=== PATIENT | male | born 1945 | race African-American/Black ===

== ENCOUNTER 2018-08-13 07:06 | Emergency (ER) | payer MEDICARE, MEDICAID ==
[~2018-08-13] VITALS: Ht 167.6 cm; Wt 103.0 kg
[~2018-08-13 07:06] MED LIST: ALD50 PO; ASPI-1159 PO; ATOR20TA65 PO; CARV12.545 PO; HYDR25TA PO; LOSA100T14 PO; MULT-1146 PO; PANT40TA4 PO; RISP0.2514 PO; RIVA20TA PO
[2018-08-13] MEDS ORDERED: KETOROLAC 30MG/ML VIAL IV STA (08:00)
[2018-08-13] MEDS ORDERED: DIATR MEGLU/DIATRIZOATE SOLN 30ML ONE (08:18)
[2018-08-13 08:59] LABS: BASOPHILS % 0.9 % (0.0-2.0); EOSINOPHILS % 0.3 % (0.0-5.0); HEMATOCRIT. 43.3 % (42.0-52.0); HEMOGLOBIN. 14.3 g/dL (14.0-18.0); LYMPHOCYTES % 18.4 % (20.0-50.0); MEAN CORPUSCULAR HEMOGLOBIN 29.3 pg (28.0-32.0); MEAN CORPUSCULAR VOLUME 88.7 fL (80.0-94.0); MEAN PLATELET VOLUME 9.2 fl (7.4-10.4); MONOCYTES % 6.7 % (2.0-8.0); NEUTROPHILS % 73.7 % (40.0-76.0); PLATELET 216 x1000/uL (130-400); RED BLOOD CELL COUNT 4.89 mill/uL (4.7-6.1); RED CELL DISTRIBUTION WIDTH 15.1 % (11.6-14.6)
[2018-08-13 09:04] LABS: CHLORIDE 105 mEq/L (98-107)
[2018-08-13 10:22] LABS: CLARITY URINE CLEAR (CLEAR); COLOR URINE YELLOW (YELLOW); KETONES URINE NEGATIVE (NEGATIVE); LEUKOCYTE ESTERASE URINE NEGATIVE (NEGATIVE); NITRITE URINE NEGATIVE (NEGATIVE); OCCULT BLOOD URINE TRACE (NEGATIVE); PH URINE 7.5 (4.5-8.0); PROTEIN URINE NEGATIVE (NEGATIVE); SPECIFIC GRAVITY URINE 1.016 (1.005-1.030); UROBILINOGEN URINE 0.2 E.U./dL (0.2-1.0)
[2018-08-13] MEDS ORDERED: IOHEXOL-300 100 ML BOTTLE ONE (13:42)
[2018-08-13 15:40] VITALS: BP 151/91
== END 2018-08-13 15:52 ==
LOC: ER 07:21
DX: R10.9 Unspecified abdominal pain (principal); I10 Essential (primary) hypertension; F20.9 Schizophrenia, unspecified; H26.9 Unspecified cataract; E11.9 Type 2 diabetes mellitus without complications; G31.84 Mild cognitive impairment of uncertain or unknown etiology; Z79.82 Long term (current) use of aspirin; Z86.73 Personal history of transient ischemic attack (TIA), and cerebral infarction without residual deficits
CPT/HCPCS: 36415; 74177; 80053; 81003; 83690; 85025; 85610; 93005; 96374; 99284; J1885; Q9963; Q9967

== ENCOUNTER 2018-11-02 05:57 | Inpatient (IN) | payer MEDICARE, MEDICAID ==
[~2018-11-02] VITALS: Ht 170.2 cm; Wt 102.5 kg
[2018-11-02] MEDS ORDERED: SODIUM CHLORIDE 0.9% 1,000 ML IV ONE (06:26)
[2018-11-02 06:45] LABS: BG BASE EXCESS -0.9 mmol/L (-2.0-2.0); BG CARBOXYHEMOGLOBIN 0.6 % (0.5-1.5); BG DEOXYHEMOGLOBIN 7.4 % (0.0-5.0); BG FRACTION INSPIRED OXYGEN 21; BG HCO3 ACT 23.5 mmol/L (22.0-26.0); BG METHEMOGLOBIN 0.1 % (0.0-1.5); BG OXYGEN SATURATION 92.5 % (92.0-98.5); BG OXYHEMOGLOBIN 91.9 % (94.0-97.0); BG PH 7.409 (7.350-7.450); BG PO2 64.2 mmHg (75.0-100.0); BG SAMPLE SITE RIGHT BRACHIAL; BG TOTAL HEMOGLOBIN 13.6 g/dL (12.0-18.0); BG VENT MODE ROOM AIR
[2018-11-02 06:47] LABS: BASOPHILS % 0.8 % (0.0-2.0); CHLORIDE 105 mEq/L (98-107); EOSINOPHILS % 0.9 % (0.0-5.0); HEMATOCRIT. 42.4 % (42.0-52.0); HEMOGLOBIN. 13.8 g/dL (14.0-18.0); MEAN CORPUSCULAR HEMOGLOBIN 28.7 pg (28.0-32.0); MEAN CORPUSCULAR VOLUME 88.3 fL (80.0-94.0); MONOCYTES % 8.2 % (2.0-8.0); NEUTROPHILS % 61.1 % (40.0-76.0); PLATELET 204 x1000/uL (130-400); RED CELL DISTRIBUTION WIDTH 14.9 % (11.6-14.6)
[2018-11-02 06:52] LABS: ETHANOL BLOOD < 10 mg/dL
[2018-11-02 06:55] LABS: CREATINE KINASE 144 IU/L (39-308)
[2018-11-02 08:09] LABS: CLARITY URINE CLEAR (CLEAR); COLOR URINE YELLOW (YELLOW); KETONES URINE NEGATIVE (NEGATIVE); LEUKOCYTE ESTERASE URINE 1+ (NEGATIVE); NITRITE URINE NEGATIVE (NEGATIVE); OCCULT BLOOD URINE NEGATIVE (NEGATIVE); PH URINE 7.5 (4.5-8.0); PROTEIN URINE NEGATIVE (NEGATIVE); UROBILINOGEN URINE 0.2 E.U./dL (0.2-1.0)
[2018-11-02 08:25] LABS: *AMPHETAMINES SCREEN URINE NEGATIVE (NEGATIVE); *BARBITURATES SCREEN URINE NEGATIVE (NEGATIVE); *BENZODIAZEPINES SCREEN URINE NEGATIVE (NEGATIVE)
[2018-11-02 08:26] LABS: PROTHROMBIN TIME 10.6 sec (9.6-11.0)
[2018-11-02 08:26] LABS: *COCAINE SCREEN URINE NEGATIVE (NEGATIVE); CANNABINOID URINE SCREEN NEGATIVE (NEGATIVE); METHADONE URINE SCREEN NEGATIVE (NEGATIVE); OPIATES URINE SCREEN NEGATIVE (NEGATIVE); PHENCYCLIDINE URINE SCREEN NEGATIVE (NEGATIVE)
[2018-11-02] MEDS ORDERED: ONDANSETRON HCL 4MG/2ML INJ IV PRN (09:15)
[2018-11-02] MEDS ORDERED: DIPHENHYDRAMINE 50MG/ML VIAL IV PRN (09:15)
[2018-11-02] MEDS ORDERED: GUAIFENESIN 200MG/10ML SUGAR FREE UDC PO PRN (09:15)
[2018-11-02] MEDS ORDERED: CLONIDINE 0.1MG TABLET PO PRN (09:15)
[2018-11-02] MEDS ORDERED: ACETAMINOPHEN 325MG TABLET PO PRN (09:15)
[2018-11-02] MEDS ORDERED: IPRATROPIUM/ALBUTEROL 0.5-3(2.5)MG/3ML NEB INH PRN (09:15)
[2018-11-02] MEDS ORDERED: DOCUSATE SODIUM 100MG CAPSULE PO PRN (09:15)
[2018-11-02] MEDS ORDERED: MAGNESIUM/ALUMINUM HYDROXIDE/SIMETHICONE 30ML UDC PO PRN (09:15)
[2018-11-02] MEDS ORDERED: HYDROCODONE/ACETAMINOPHEN 5/325MG TABLET PO PRN (09:15)
[2018-11-02 09:31] LABS: PHOSPHORUS 2.6 mg/dL (2.5-4.9)
[2018-11-02] MEDS ORDERED: ENOXAPARIN 40MG/0.4ML SYR SUBCUT SCH (10:30)
[2018-11-02 11:00] VITALS: BP 147/90
[2018-11-02] MEDS ORDERED: ASPIRIN 81MG EC TABLET PO SCH (11:45)
[2018-11-02 12:00] VITALS: BP 119/62
[2018-11-02] MEDS ORDERED: ROSU20TA29 MT (12:15)
[2018-11-02] MEDS ORDERED: AMLO5TAB88 MT (12:15)
[2018-11-02] MEDS ORDERED: FERR325T6 MT (12:15)
[2018-11-02] MEDS ORDERED: CLON0.1T MT (12:18)
[2018-11-02] MEDS ORDERED: DOCU-150 MT (12:18)
[2018-11-02] MEDS ORDERED: SPIR25TA6 MT (12:18)
[2018-11-02] MEDS ORDERED: LOSA25TA12 MT (12:18)
[2018-11-02] MEDS ORDERED: ESOM20CA37 MT (12:18)
[2018-11-02] MEDS ORDERED: CARVEDILOL 3.125 MG TABLET PO SCH (13:00)
[2018-11-02 16:00] VITALS: BP 153/104
[2018-11-02] MEDS: ENOXAPARIN 40MG/0.4ML SYR SUBCUT SCH (17:55)
[2018-11-02] MEDS: ASPIRIN 81MG EC TABLET PO SCH (17:55)
[2018-11-02] MEDS: SODIUM CHLORIDE 0.45% 1,000 ML IV SCH (17:57)
[2018-11-02] MEDS ORDERED: LACTULOSE 20G/30ML UDC PO NR (19:00)
[2018-11-02 20:00] VITALS: BP 121/75
[2018-11-02] MEDS: ATORVASTATIN CALCIUM 20MG TABLET PO SCH (21:12)
[2018-11-02] MEDS: CARVEDILOL 3.125 MG TABLET PO SCH (21:13)
[2018-11-02 23:55] LABS: CREATINE KINASE MB FRACTION 2.5 ng/mL (0.5-3.6)
[2018-11-03] VITALS: BP 112/74
[2018-11-03 04:00] VITALS: BP 136/79
[2018-11-03] MEDS ORDERED: DEXTROSE 50% WATER 50ML SYRINGE IV PRN (04:00)
[2018-11-03 06:03] LABS: BASOPHILS % 0.6 % (0.0-2.0); EOSINOPHILS % 1.4 % (0.0-5.0); HEMATOCRIT. 39.2 % (42.0-52.0); HEMOGLOBIN. 12.9 g/dL (14.0-18.0); LYMPHOCYTES % 30.5 % (20.0-50.0); MEAN CORPUSCULAR VOLUME 88.1 fL (80.0-94.0); MONOCYTES % 9.1 % (2.0-8.0); NEUTROPHILS % 58.4 % (40.0-76.0); PLATELET 206 x1000/uL (130-400); RED BLOOD CELL COUNT 4.45 mill/uL (4.7-6.1); RED CELL DISTRIBUTION WIDTH 14.7 % (11.6-14.6)
[2018-11-03] MEDS: INSULIN LISPRO 100 UNITS/ML SUBCUT SCH ×4 (06:09→21:00)
[2018-11-03] MEDS: BLOOD SUGAR DIAGNOSTIC STRIP TEST SCH ×4 (06:09→21:00)
[2018-11-03] MEDS: SODIUM CHLORIDE 0.45% 1,000 ML IV SCH (06:09)
[2018-11-03 07:50] LABS: CHLORIDE 108 mEq/L (98-107)
[2018-11-03 08:00] VITALS: BP 145/79
[2018-11-03 08:02] LABS: LDL CHOLESTEROL 47 mg/dL (5-100)
[2018-11-03 08:04] LABS: HDL CHOLESTEROL 32 mg/dL (40-59)
[2018-11-03] MEDS: ASPIRIN 81MG EC TABLET PO SCH (09:31)
[2018-11-03] MEDS: CARVEDILOL 3.125 MG TABLET PO SCH ×2 (09:31→22:12)
[2018-11-03] MEDS: CLOTRIMAZOLE 1% CREAM 30GM TOP SCH (11:27)
[2018-11-03 12:00] VITALS: BP 114/62
[2018-11-03 16:00] VITALS: BP 159/96
[2018-11-03] MEDS: ENOXAPARIN 40MG/0.4ML SYR SUBCUT SCH (17:31)
[2018-11-03 20:00] VITALS: BP 118/73
[2018-11-03] MEDS: ATORVASTATIN CALCIUM 20MG TABLET PO SCH (22:11)
[2018-11-04] VITALS: BP 113/67
[2018-11-04 04:00] VITALS: BP 140/79
[2018-11-04] MEDS: SODIUM CHLORIDE 0.45% 1,000 ML IV SCH ×2 (05:52→14:59)
[2018-11-04] MEDS: BLOOD SUGAR DIAGNOSTIC STRIP TEST SCH ×3 (05:55→16:45)
[2018-11-04 06:06] LABS: BASOPHILS % 0.4 % (0.0-2.0); EOSINOPHILS % 2.2 % (0.0-5.0); HEMOGLOBIN. 12.4 g/dL (14.0-18.0); LYMPHOCYTES % 30.3 % (20.0-50.0); MEAN CORPUSCULAR HEMOGLOBIN 28.7 pg (28.0-32.0); MEAN CORPUSCULAR VOLUME 88.3 fL (80.0-94.0); MONOCYTES % 7.7 % (2.0-8.0); NEUTROPHILS % 59.4 % (40.0-76.0); PLATELET 194 x1000/uL (130-400); RED BLOOD CELL COUNT 4.31 mill/uL (4.7-6.1); RED CELL DISTRIBUTION WIDTH 14.8 % (11.6-14.6)
[2018-11-04 06:23] LABS: CHLORIDE 107 mEq/L (98-107)
[2018-11-04] MEDS: INSULIN LISPRO 100 UNITS/ML SUBCUT SCH ×3 (06:34→17:15)
[2018-11-04 08:00] VITALS: BP 156/75
[2018-11-04] MEDS: CLOTRIMAZOLE 1% CREAM 30GM TOP SCH (09:52)
[2018-11-04] MEDS: CARVEDILOL 3.125 MG TABLET PO SCH (09:53)
[2018-11-04] MEDS: ASPIRIN 81MG EC TABLET PO SCH (09:53)
[2018-11-04 12:00] VITALS: BP 104/88
[2018-11-04] MEDS ORDERED: COR3 PO (12:18)
[2018-11-04 16:00] VITALS: BP 141/82
[2018-11-04 16:48] VITALS: BP 141/82
[2018-11-04] MEDS: ENOXAPARIN 40MG/0.4ML SYR SUBCUT SCH (18:03)
[2018-11-10] MEDS ORDERED: CARVEDILOL 3.125 MG TABLET PO SCH (21:00)
== END 2018-11-04 20:45 | disposition home health service (06) | DRG 74 ==
LOC: ER 06:22 → 5WST 08:25 → EDBEDREQ 08:27 → ENRESERV 08:56
PROVIDERS: ADMIT Internal Medicine; ATTEND Internal Medicine
DX: G90.8 Other disorders of autonomic nervous system (principal); E72.20 Disorder of urea cycle metabolism, unspecified; I24.9 Acute ischemic heart disease, unspecified; G93.40 Encephalopathy, unspecified; E11.42 Type 2 diabetes mellitus with diabetic polyneuropathy; R41.82 Altered mental status, unspecified; M50.10 Cervical disc disorder with radiculopathy, unspecified cervical region; L84 Corns and callosities; E78.5 Hyperlipidemia, unspecified; R23.4 Changes in skin texture; L57.0 Actinic keratosis; I44.0 Atrioventricular block, first degree; I11.9 Hypertensive heart disease without heart failure; B35.3 Tinea pedis; F03.90 Unspecified dementia, unspecified severity, without behavioral disturbance, psychotic disturbance, mood disturbance, and anxiety; Z86.73 Personal history of transient ischemic attack (TIA), and cerebral infarction without residual deficits; Z87.891 Personal history of nicotine dependence; Z74.01 Bed confinement status; Z79.899 Other long term (current) drug therapy; Z79.01 Long term (current) use of anticoagulants
CPT/HCPCS: 36415; 36600; 71045; 80048; 80061; 80305; 80307; 80320; 80329; 82140; 82375; 82550; 82553; 82805; 82962; 83036; 83605; 83735; 83880; 84100; 84443; 84484; 93005; 93306; 93970; 96360; 96361; 97163; 97167; 97530; 99285; A6261; J1650; J7030; G0480

== ENCOUNTER 2019-08-27 09:30 | Inpatient (IN) | payer MEDICARE, MEDICAID ==
[~2019-08-27] VITALS: Ht 170.2 cm; Wt 95.3 kg
[~2019-08-27 09:30] MED LIST changes: -ALD50 PO; -ASPI-1159 PO; -ATOR20TA65 PO; -CARV12.545 PO; +COR3 PO; +DOCU-150 MT; +ESOM20CA37 MT; +FERR325T6 MT; -HYDR25TA PO; -LOSA100T14 PO; -MULT-1146 PO; -PANT40TA4 PO; -RISP0.2514 PO; -RIVA20TA PO; +ROSU20TA29 MT
[2019-08-27] MEDS ORDERED: HYDR25TA PO (09:35)
[2019-08-27] MEDS ORDERED: SODIUM CHLORIDE 0.9% 1,000 ML IV ONE (09:58)
[2019-08-27 10:33] LABS: BASOPHILS % 0.7 % (0.0-2.0); EOSINOPHILS % 2.7 % (0.0-5.0); HEMATOCRIT. 44.9 % (42.0-52.0); LYMPHOCYTES % 37.9 % (20.0-50.0); MEAN CORPUSCULAR HEMOGLOBIN 29.5 pg (28.0-32.0); MONOCYTES % 8.7 % (2.0-8.0); PLATELET 177 x1000/uL (130-400); RED CELL DISTRIBUTION WIDTH 15.1 % (11.6-14.6)
[2019-08-27 10:38] LABS: PROTHROMBIN TIME 10.7 sec (9.6-11.0)
[2019-08-27 10:39] LABS: CHLORIDE 103 mEq/L (98-107)
[2019-08-27 10:44] LABS: ETHANOL BLOOD < 10 mg/dL
[2019-08-27 10:48] LABS: CREATINE KINASE 916 IU/L (39-308)
[2019-08-27 11:24] LABS: *BARBITURATES SCREEN URINE NEGATIVE (NEGATIVE)
[2019-08-27 11:25] LABS: *BENZODIAZEPINES SCREEN URINE NEGATIVE (NEGATIVE); *COCAINE SCREEN URINE NEGATIVE (NEGATIVE); CANNABINOID URINE SCREEN NEGATIVE (NEGATIVE); METHADONE URINE SCREEN NEGATIVE (NEGATIVE); PHENCYCLIDINE URINE SCREEN NEGATIVE (NEGATIVE)
[2019-08-27 11:26] LABS: *AMPHETAMINES SCREEN URINE NEGATIVE (NEGATIVE)
[2019-08-27 12:21] LABS: CLARITY URINE CLOUDY (CLEAR); COLOR URINE YELLOW (YELLOW); KETONES URINE NEGATIVE (NEGATIVE); LEUKOCYTE ESTERASE URINE 3+ (NEGATIVE); NITRITE URINE NEGATIVE (NEGATIVE); OCCULT BLOOD URINE 2+ (NEGATIVE); PH URINE 8.5 (4.5-8.0); PROTEIN URINE 1+ (NEGATIVE); SPECIFIC GRAVITY URINE 1.018 (1.005-1.030)
[2019-08-27] MEDS ORDERED: CEFTRIAXONE 1 G PREMIX 50 ML IV ONE (13:00)
[2019-08-27] MEDS ORDERED: MAGNESIUM 2 G PREMIX 50 ML IV ONE (13:45)
[2019-08-27] MEDS ORDERED: ONDANSETRON HCL 4MG/2ML INJ IV PRN (13:45)
[2019-08-27] MEDS ORDERED: ENOXAPARIN 40MG/0.4ML SYR SUBCUT SCH (13:45)
[2019-08-27] MEDS ORDERED: ACETAMINOPHEN 325MG TABLET PO PRN (13:45)
[2019-08-27] MEDS ORDERED: IPRATROPIUM/ALBUTEROL 0.5-3(2.5)MG/3ML NEB HHN PRN (13:45)
[2019-08-27] MEDS ORDERED: CLONIDINE 0.1MG TABLET PO PRN (13:45)
[2019-08-27] MEDS ORDERED: MAGNESIUM/ALUMINUM HYDROXIDE/SIMETHICONE 30ML UDC PO PRN (13:45)
[2019-08-27] MEDS ORDERED: DEXTROSE 50% WATER 50ML SYRINGE IV PRN (16:45)
[2019-08-27] MEDS: BLOOD SUGAR DIAGNOSTIC STRIP TEST SCH ×2 (17:04→21:00)
[2019-08-27] MEDS: INSULIN LISPRO 100 UNITS/ML SUBCUT SCH ×2 (17:04→21:00)
[2019-08-27 18:17] LABS: CREATINE KINASE MB FRACTION 7.2 ng/mL (0.5-3.6)
[2019-08-27] MEDS: METOPROLOL TARTRATE 25MG TABLET PO SCH (18:22)
[2019-08-27 19:09] VITALS: BP 133/78
[2019-08-27 20:00] VITALS: BP 120/67
[2019-08-27] MEDS: ATORVASTATIN CALCIUM 10MG TABLET PO SCH (22:20)
[2019-08-27] MEDS: ENOXAPARIN 30MG/0.3ML SYR SUBCUT SCH (22:20)
[2019-08-28 00:29] LABS: CREATINE KINASE MB FRACTION 5.7 ng/mL (0.5-3.6)
[2019-08-28 04:00] VITALS: BP 132/62
[2019-08-28 06:11] LABS: BASOPHILS % 0.7 % (0.0-2.0); EOSINOPHILS % 3.3 % (0.0-5.0); HEMATOCRIT. 41.3 % (42.0-52.0); HEMOGLOBIN. 13.8 g/dL (14.0-18.0); MEAN CORPUSCULAR HEMOGLOBIN 29.4 pg (28.0-32.0); MEAN CORPUSCULAR VOLUME 87.9 fL (80.0-94.0); MEAN PLATELET VOLUME 9.3 fl (7.4-10.4); MONOCYTES % 8.1 % (2.0-8.0); NEUTROPHILS % 53.9 % (40.0-76.0); PLATELET 176 x1000/uL (130-400); RED CELL DISTRIBUTION WIDTH 14.9 % (11.6-14.6)
[2019-08-28 06:27] LABS: CHLORIDE 104 mEq/L (98-107)
[2019-08-28] MEDS: BLOOD SUGAR DIAGNOSTIC STRIP TEST SCH ×4 (06:33→20:29)
[2019-08-28] MEDS: INSULIN LISPRO 100 UNITS/ML SUBCUT SCH ×4 (06:33→20:29)
[2019-08-28] MEDS: METOPROLOL TARTRATE 25MG TABLET PO SCH ×2 (06:33→17:11)
[2019-08-28 06:39] LABS: LDL CHOLESTEROL 51 mg/dL (5-100)
[2019-08-28 06:41] LABS: HDL CHOLESTEROL 26 mg/dL (40-59)
[2019-08-28 08:00] VITALS: BP 111/70
[2019-08-28] MEDS ORDERED: POTASSIUM CHLORIDE 20MEQ TABLET SR PO SCH (08:30)
[2019-08-28] MEDS: ASPIRIN 81MG EC TABLET PO SCH (09:29)
[2019-08-28] MEDS: ENOXAPARIN 30MG/0.3ML SYR SUBCUT SCH ×2 (09:29→20:31)
[2019-08-28] MEDS: DOCUSATE SODIUM 250MG CAPSULE PO SCH (09:29)
[2019-08-28 12:00] VITALS: BP 119/96
[2019-08-28 16:00] VITALS: BP 160/93
[2019-08-28] MEDS: POTASSIUM CHLORIDE 20MEQ TABLET SR PO SCH (17:11)
[2019-08-28 20:00] VITALS: BP 126/76
[2019-08-28] MEDS: ATORVASTATIN CALCIUM 10MG TABLET PO SCH (20:32)
[2019-08-29] VITALS: BP 102/66
[2019-08-29 04:00] VITALS: BP 126/86
[2019-08-29 05:28] LABS: BASOPHILS % 1.1 % (0.0-2.0); EOSINOPHILS % 3.4 % (0.0-5.0); HEMATOCRIT. 42.7 % (42.0-52.0); HEMOGLOBIN. 14.3 g/dL (14.0-18.0); LYMPHOCYTES % 39.1 % (20.0-50.0); MEAN CORPUSCULAR HEMOGLOBIN 29.5 pg (28.0-32.0); MEAN CORPUSCULAR VOLUME 87.7 fL (80.0-94.0); MEAN PLATELET VOLUME 9.2 fl (7.4-10.4); MONOCYTES % 9.2 % (2.0-8.0); NEUTROPHILS % 47.2 % (40.0-76.0); PLATELET 188 x1000/uL (130-400); RED BLOOD CELL COUNT 4.86 mill/uL (4.7-6.1); RED CELL DISTRIBUTION WIDTH 14.7 % (11.6-14.6)
[2019-08-29 05:29] LABS: CHLORIDE 108 mEq/L (98-107)
[2019-08-29] MEDS: INSULIN LISPRO 100 UNITS/ML SUBCUT SCH ×4 (06:34→20:59)
[2019-08-29] MEDS: BLOOD SUGAR DIAGNOSTIC STRIP TEST SCH ×4 (06:34→20:59)
[2019-08-29] MEDS: METOPROLOL TARTRATE 25MG TABLET PO SCH ×2 (06:34→17:24)
[2019-08-29 08:00] VITALS: BP 113/95
[2019-08-29] MEDS: ASPIRIN 81MG EC TABLET PO SCH (08:26)
[2019-08-29] MEDS: POTASSIUM CHLORIDE 20MEQ TABLET SR PO SCH ×2 (08:26→17:24)
[2019-08-29] MEDS: DOCUSATE SODIUM 250MG CAPSULE PO SCH (08:26)
[2019-08-29] MEDS: ENOXAPARIN 30MG/0.3ML SYR SUBCUT SCH ×2 (08:27→21:10)
[2019-08-29] MEDS: LINAGLIPTIN 5MG TABLET PO SCH (09:58)
[2019-08-29] MEDS ORDERED: LACTULOSE 20G/30ML UDC PO PRN (11:00)
[2019-08-29] MEDS ORDERED: LACTULOSE 20G/30ML UDC PO NR (11:00)
[2019-08-29 12:00] VITALS: BP 132/112
[2019-08-29] MEDS: LEVOFLOXACIN 500MG PREMIX 100 ML IV SCH (12:44)
[2019-08-29 16:00] VITALS: BP 152/85
[2019-08-29 20:00] VITALS: BP 115/67
[2019-08-29] MEDS: ATORVASTATIN CALCIUM 10MG TABLET PO SCH (21:10)
[2019-08-30] VITALS: BP 143/90
[2019-08-30 04:00] VITALS: BP 116/78
[2019-08-30] MEDS: BLOOD SUGAR DIAGNOSTIC STRIP TEST SCH ×2 (05:34→12:07)
[2019-08-30] MEDS: INSULIN LISPRO 100 UNITS/ML SUBCUT SCH ×2 (06:18→12:08)
[2019-08-30] MEDS: METOPROLOL TARTRATE 25MG TABLET PO SCH (06:19)
[2019-08-30 07:57] LABS: BASOPHILS % 0.7 % (0.0-2.0); EOSINOPHILS % 2.6 % (0.0-5.0); HEMATOCRIT. 42.3 % (42.0-52.0); HEMOGLOBIN. 14.5 g/dL (14.0-18.0); LYMPHOCYTES % 37.7 % (20.0-50.0); MEAN CORPUSCULAR HEMOGLOBIN 30.1 pg (28.0-32.0); MEAN PLATELET VOLUME 8.9 fl (7.4-10.4); MONOCYTES % 9.5 % (2.0-8.0); NEUTROPHILS % 49.5 % (40.0-76.0); PLATELET 184 x1000/uL (130-400); RED BLOOD CELL COUNT 4.81 mill/uL (4.7-6.1); RED CELL DISTRIBUTION WIDTH 14.9 % (11.6-14.6)
[2019-08-30 08:00] VITALS: BP 109/68
[2019-08-30] MEDS ORDERED: ASPI-1158 PO (08:01)
[2019-08-30] MEDS ORDERED: LINA5TAB PO (08:01)
[2019-08-30] MEDS ORDERED: LEVO500T2 MT (08:01)
[2019-08-30 08:14] LABS: CHLORIDE 108 mEq/L (98-107)
[2019-08-30] MEDS: POTASSIUM CHLORIDE 20MEQ TABLET SR PO SCH (11:41)
[2019-08-30] MEDS: DOCUSATE SODIUM 250MG CAPSULE PO SCH (11:41)
[2019-08-30] MEDS: ASPIRIN 81MG EC TABLET PO SCH (11:41)
[2019-08-30] MEDS: LINAGLIPTIN 5MG TABLET PO SCH (11:41)
[2019-08-30] MEDS: ENOXAPARIN 30MG/0.3ML SYR SUBCUT SCH (11:42)
[2019-08-30] MEDS: LEVOFLOXACIN 500MG PREMIX 100 ML IV SCH (11:43)
[2019-08-30 12:00] VITALS: BP 105/75
[2019-08-30 14:21] VITALS: BP 115/60
[2019-08-30 17:47] LABS: OPIATES URINE SCREEN NEGATIVE (NEGATIVE)
[2019-08-31] MEDS ORDERED: LEVOFLOXACIN 500MG TABLET PO SCH (11:00)
== END 2019-08-30 15:15 | disposition home health service (06) | DRG 640 ==
LOC: ER 09:30 → 5WST 11:45 → EDBEDREQ 11:55 → ENRESERV 13:14
PROVIDERS: ADMIT Internal Medicine Geriatric Medicine; ATTEND Internal Medicine Geriatric Medicine
DX: E87.6 Hypokalemia (principal); G92 Toxic encephalopathy; N39.0 Urinary tract infection, site not specified; I49.3 Ventricular premature depolarization; I44.0 Atrioventricular block, first degree; G30.9 Alzheimer's disease, unspecified; I11.9 Hypertensive heart disease without heart failure; E11.49 Type 2 diabetes mellitus with other diabetic neurological complication; E78.5 Hyperlipidemia, unspecified; H54.62 Unqualified visual loss, left eye, normal vision right eye; F02.80 Dementia in other diseases classified elsewhere, unspecified severity, without behavioral disturbance, psychotic disturbance, mood disturbance, and anxiety; I49.9 Cardiac arrhythmia, unspecified; K59.00 Constipation, unspecified; B96.89 Other specified bacterial agents as the cause of diseases classified elsewhere; F17.210 Nicotine dependence, cigarettes, uncomplicated; Z79.899 Other long term (current) drug therapy; Z82.49 Family history of ischemic heart disease and other diseases of the circulatory system; Z86.73 Personal history of transient ischemic attack (TIA), and cerebral infarction without residual deficits
CPT/HCPCS: 36415; 71045; 80048; 80053; 80061; 80305; 80307; 80320; 80329; 81003; 82140; 82550; 82553; 82962; 83036; 83735; 83880; 84443; 84484; 85025; 87077; 87186; 93005; 93306; 93970; 97162; 99285; J0696; J1650; J1956; J7030; G0480

== ENCOUNTER 2020-02-07 07:50 | Inpatient (IN) | payer MEDICARE, MEDICAID ==
[~2020-02-07] VITALS: Ht 175.3 cm; Wt 88.9 kg
[2020-02-07] VITALS (7 sets, daily range): BP systolic 92–125; BP diastolic 53–86
[~2020-02-07 07:50] MED LIST changes: +ASPI-1158 PO; +LEVO500T2 MT; +LINA5TAB PO
[2020-02-07] MEDS ORDERED: ONDANSETRON HCL 4MG/2ML INJ IV STA (08:21)
[2020-02-07] MEDS ORDERED: KETOROLAC 30MG/ML VIAL IV STA (08:21)
[2020-02-07] MEDS ORDERED: SODIUM CHLORIDE 0.9% 1,000 ML IV ONE (08:23)
[2020-02-07 08:31] LABS: CHLORIDE 122 mEq/L (98-107)
[2020-02-07 08:34] LABS: BASOPHILS % 0.7 % (0.0-2.0); EOSINOPHILS % 0.1 % (0.0-5.0); HEMATOCRIT. 55.6 % (42.0-52.0); HEMOGLOBIN. 18.4 g/dL (14.0-18.0); LYMPHOCYTES % 27.5 % (20.0-50.0); MEAN CORPUSCULAR HEMOGLOBIN 28.8 pg (28.0-32.0); MEAN CORPUSCULAR VOLUME 87.2 fL (80.0-94.0); MEAN PLATELET VOLUME 9.4 fl (7.4-10.4); MONOCYTES % 6.3 % (2.0-8.0); NEUTROPHILS % 65.4 % (40.0-76.0); PLATELET 238 x1000/uL (130-400); RED BLOOD CELL COUNT 6.37 mill/uL (4.7-6.1); RED CELL DISTRIBUTION WIDTH 15.5 % (11.6-14.6)
[2020-02-07 08:39] LABS: INR 1.1; PROTHROMBIN TIME 11.9 sec (9.6-11.0)
[2020-02-07 09:09] LABS: CLARITY URINE CLOUDY (CLEAR); COLOR URINE DK YELLOW (YELLOW); KETONES URINE TRACE (NEGATIVE); LEUKOCYTE ESTERASE URINE NEGATIVE (NEGATIVE); NITRITE URINE NEGATIVE (NEGATIVE); OCCULT BLOOD URINE 2+ (NEGATIVE); PH URINE 5.5 (4.5-8.0); PROTEIN URINE 3+ (NEGATIVE); SPECIFIC GRAVITY URINE 1.035 (1.005-1.030)
[2020-02-07] MEDS ORDERED: PIPERACILLIN/TAZ 3.375G PREMIX 50 ML IV ONE (09:30)
[2020-02-07] MEDS ORDERED: VANCOMYCIN 1 G PREMIX 200 ML IV ONE (09:30)
[2020-02-07] MEDS ORDERED: LACTULOSE 20G/30ML UDC PO ONE (10:30)
[2020-02-07] MEDS ORDERED: LACTULOSE 20G/30ML UDC PO SCH (11:00)
[2020-02-07] MEDS: DEXT 5%/0.45% NACL 1000ML 1,000 ML IV SCH ×3 (11:05→17:22)
[2020-02-07] MEDS ORDERED: ENOXAPARIN 40MG/0.4ML SYR SUBCUT SCH (11:15)
[2020-02-07] MEDS ORDERED: DOCUSATE SODIUM 100MG CAPSULE PO PRN (11:15)
[2020-02-07] MEDS ORDERED: GUAIFENESIN 200MG/10ML SUGAR FREE UDC PO PRN (11:15)
[2020-02-07] MEDS ORDERED: MAGNESIUM/ALUMINUM HYDROXIDE/SIMETHICONE 30ML UDC PO PRN (11:15)
[2020-02-07] MEDS ORDERED: ACETAMINOPHEN 325MG TABLET PO PRN ×2 (11:15)
[2020-02-07] MEDS ORDERED: TRAMADOL 50MG TABLET PO PRN (11:15)
[2020-02-07] MEDS ORDERED: CLONIDINE 0.1MG TABLET PO PRN (11:15)
[2020-02-07] MEDS ORDERED: DEXTROSE 50% WATER 50ML SYRINGE IV PRN (11:15)
[2020-02-07] MEDS ORDERED: IPRATROPIUM/ALBUTEROL 0.5-3(2.5)MG/3ML NEB ORI PRN (11:15)
[2020-02-07] MEDS ORDERED: NITROGLYCERIN 0.4MG TABLET SL SL PRN (11:15)
[2020-02-07] MEDS ORDERED: MORPHINE SULFATE 2 MG/ML CPJ (NOT FOR IM USE) IV PRN (11:15)
[2020-02-07] MEDS ORDERED: CEFTRIAXONE 1 G PREMIX 50 ML IV NR (11:30)
[2020-02-07] MEDS: LACTULOSE 20G/30ML UDC PO SCH ×3 (11:30→21:01)
[2020-02-07 11:58] LABS: T4 FREE 1.15 ng/dL (0.76-1.46)
[2020-02-07] MEDS ORDERED: LEVOFLOXACIN 500MG PREMIX 100 ML IV SCH (12:00)
[2020-02-07] MEDS: ENOXAPARIN 30MG/0.3ML SYR SUBCUT SCH (12:22)
[2020-02-07] MEDS: BLOOD SUGAR DIAGNOSTIC STRIP TEST SCH ×3 (13:00→21:02)
[2020-02-07] MEDS: INSULIN LISPRO 100 UNITS/ML SUBCUT SCH ×3 (13:20→21:03)
[2020-02-07 16:22] LABS: CREATINE KINASE MB FRACTION 3.8 ng/mL (0.5-3.6)
[2020-02-07] MEDS: CARVEDILOL 3.125 MG TABLET PO SCH (17:24)
[2020-02-07] MEDS ORDERED: ZOLPIDEM TARTRATE 5MG TABLET PO PRN (21:00)
[2020-02-07] MEDS: FAMOTIDINE 20MG TABLET PO SCH (21:01)
[2020-02-07] MEDS: ASCORBIC ACID 500 MG TABLET PO SCH (21:02)
[2020-02-07 23:23] LABS: CREATINE KINASE MB FRACTION 4.2 ng/mL (0.5-3.6)
[2020-02-08] VITALS (12 sets, daily range): BP systolic 115–140; BP diastolic 69–98
[2020-02-08] MEDS: LACTULOSE 20G/30ML UDC PO SCH ×6 (00:55→20:00)
[2020-02-08] MEDS: DEXT 5%/0.45% NACL 1000ML 1,000 ML IV SCH ×2 (02:20→19:18)
[2020-02-08] MEDS: CARVEDILOL 3.125 MG TABLET PO SCH ×2 (06:01→18:25)
[2020-02-08 06:24] LABS: BASOPHILS % 0.4 % (0.0-2.0); EOSINOPHILS % 0.6 % (0.0-5.0); HEMATOCRIT. 48.4 % (42.0-52.0); HEMOGLOBIN. 15.8 g/dL (14.0-18.0); LYMPHOCYTES % 17.3 % (20.0-50.0); MEAN CORPUSCULAR VOLUME 88.7 fL (80.0-94.0); MEAN PLATELET VOLUME 9.7 fl (7.4-10.4); MONOCYTES % 6.4 % (2.0-8.0); NEUTROPHILS % 75.3 % (40.0-76.0); PLATELET 189 x1000/uL (130-400); RED BLOOD CELL COUNT 5.45 mill/uL (4.7-6.1); RED CELL DISTRIBUTION WIDTH 15.6 % (11.6-14.6)
[2020-02-08 06:35] LABS: CHLORIDE 123 mEq/L (98-107)
[2020-02-08 07:09] LABS: PHOSPHORUS 3.9 mg/dL (2.5-4.9)
[2020-02-08] MEDS: BLOOD SUGAR DIAGNOSTIC STRIP TEST SCH ×4 (08:19→20:24)
[2020-02-08] MEDS: CEFTRIAXONE 1,000 MG in DEXTROSE 5% WATER 50 ML IV SCH (08:20)
[2020-02-08] MEDS: INSULIN LISPRO 100 UNITS/ML SUBCUT SCH ×4 (08:22→20:24)
[2020-02-08] MEDS: ZINC SULFATE 220 MG ( 50 ) CAPSULE PO SCH (08:22)
[2020-02-08] MEDS: ASCORBIC ACID 500 MG TABLET PO SCH ×2 (08:23→20:22)
[2020-02-08] MEDS: ASPIRIN 325MG EC TABLET PO SCH (08:36)
[2020-02-08] MEDS ORDERED: CEFTRIAXONE 1 G PREMIX 50 ML IV SCH (09:00)
[2020-02-08] MEDS ORDERED: CEFTRIAXONE 1,000 MG in DEXTROSE 5% WATER 50 ML IV SCH (09:00)
[2020-02-08] MEDS ORDERED: POTASSIUM CHLORIDE 20MEQ/PACKET PO NR ×2 (10:15→10:30)
[2020-02-08] MEDS: ONDANSETRON HCL 4MG/2ML INJ IV PRN ×3 (11:25→21:13)
[2020-02-08] MEDS: LEVOFLOXACIN 250MG PREMIX 50 ML IV SCH (11:59)
[2020-02-08] MEDS: ENOXAPARIN 30MG/0.3ML SYR SUBCUT SCH (11:59)
[2020-02-08] MEDS ORDERED: POTASSIUM CHLORIDE INJ 40 MEQ in DEXT 5% WATER 250 ML IV NR (12:00)
[2020-02-08] MEDS ORDERED: POTASSIUM CHLORIDE INJ 20 MEQ in DEXT 5% WATER 250 ML IV SCH (12:00)
[2020-02-08] MEDS: FAMOTIDINE 20MG TABLET PO SCH (20:22)
[2020-02-09] VITALS (11 sets, daily range): BP systolic 106–156; BP diastolic 56–86
[2020-02-09] MEDS: LACTULOSE 20G/30ML UDC PO SCH ×2 (03:59)
[2020-02-09] MEDS: ONDANSETRON HCL 4MG/2ML INJ IV PRN ×3 (03:59→18:23)
[2020-02-09] MEDS: CARVEDILOL 3.125 MG TABLET PO SCH ×2 (06:11→19:16)
[2020-02-09] MEDS: DEXT 5%/0.45% NACL 1000ML 1,000 ML IV SCH ×3 (06:11→12:30)
[2020-02-09] MEDS: INSULIN LISPRO 100 UNITS/ML SUBCUT SCH ×5 (08:00→21:07)
[2020-02-09] MEDS: BLOOD SUGAR DIAGNOSTIC STRIP TEST SCH ×4 (08:14→21:07)
[2020-02-09] MEDS: ZINC SULFATE 220 MG ( 50 ) CAPSULE PO SCH (09:35)
[2020-02-09] MEDS: CEFTRIAXONE 1,000 MG in DEXTROSE 5% WATER 50 ML IV SCH (09:35)
[2020-02-09] MEDS: ENOXAPARIN 40MG/0.4ML SYR SUBCUT SCH (09:35)
[2020-02-09] MEDS: ASPIRIN 325MG EC TABLET PO SCH (09:35)
[2020-02-09] MEDS: ASCORBIC ACID 500 MG TABLET PO SCH ×2 (09:35→20:31)
[2020-02-09] MEDS: LEVOFLOXACIN 250MG PREMIX 50 ML IV SCH (11:23)
[2020-02-09] MEDS: METOCLOPRAMIDE HCL 10MG/2ML VIAL IV SCH ×2 (12:07→19:13)
[2020-02-09] MEDS: FAMOTIDINE 20MG TABLET PO SCH (20:31)
[2020-02-10] VITALS (9 sets, daily range): BP systolic 104–146; BP diastolic 39–105
[2020-02-10] MEDS: DEXT 5%/0.45% NACL 1000ML 1,000 ML IV SCH ×3 (01:28→18:05)
[2020-02-10] MEDS: CARVEDILOL 3.125 MG TABLET PO SCH ×2 (05:46→17:27)
[2020-02-10] MEDS: ASCORBIC ACID 500 MG TABLET PO SCH ×2 (08:15→22:17)
[2020-02-10] MEDS: CEFTRIAXONE 1,000 MG in DEXTROSE 5% WATER 50 ML IV SCH (08:15)
[2020-02-10] MEDS: ENOXAPARIN 40MG/0.4ML SYR SUBCUT SCH (08:15)
[2020-02-10] MEDS: ZINC SULFATE 220 MG ( 50 ) CAPSULE PO SCH (08:15)
[2020-02-10] MEDS: METOCLOPRAMIDE HCL 10MG/2ML VIAL IV SCH ×3 (08:15→17:25)
[2020-02-10] MEDS: BLOOD SUGAR DIAGNOSTIC STRIP TEST SCH ×4 (08:16→21:00)
[2020-02-10] MEDS: ASPIRIN 325MG EC TABLET PO SCH (08:17)
[2020-02-10] MEDS: INSULIN LISPRO 100 UNITS/ML SUBCUT SCH ×4 (08:19→22:28)
[2020-02-10] MEDS: LEVOFLOXACIN 250MG PREMIX 50 ML IV SCH (11:25)
[2020-02-10] MEDS: FAMOTIDINE 20MG TABLET PO SCH (22:17)
[2020-02-11] VITALS (8 sets, daily range): BP systolic 106–148; BP diastolic 71–92
[2020-02-11] MEDS: DEXT 5%/0.45% NACL 1000ML 1,000 ML IV SCH ×2 (05:24→15:35)
[2020-02-11] MEDS: CARVEDILOL 3.125 MG TABLET PO SCH (05:25)
[2020-02-11 07:21] LABS: CHLORIDE 109 mEq/L (98-107)
[2020-02-11 07:27] LABS: BASOPHILS % 0.5 % (0.0-2.0); EOSINOPHILS % 2.6 % (0.0-5.0); HEMATOCRIT. 42.5 % (42.0-52.0); LYMPHOCYTES % 34.3 % (20.0-50.0); MEAN CORPUSCULAR HEMOGLOBIN 28.8 pg (28.0-32.0); MEAN CORPUSCULAR VOLUME 87.4 fL (80.0-94.0); MEAN PLATELET VOLUME 10.1 fl (7.4-10.4); MONOCYTES % 8.2 % (2.0-8.0); NEUTROPHILS % 54.4 % (40.0-76.0); PLATELET 157 x1000/uL (130-400); RED BLOOD CELL COUNT 4.87 mill/uL (4.7-6.1); RED CELL DISTRIBUTION WIDTH 15.3 % (11.6-14.6)
[2020-02-11] MEDS: BLOOD SUGAR DIAGNOSTIC STRIP TEST SCH ×3 (07:30→17:26)
[2020-02-11] MEDS: METOCLOPRAMIDE HCL 10MG/2ML VIAL IV SCH ×3 (09:23→17:26)
[2020-02-11] MEDS: ASPIRIN 325MG EC TABLET PO SCH (09:24)
[2020-02-11] MEDS: ASCORBIC ACID 500 MG TABLET PO SCH (09:24)
[2020-02-11] MEDS: ZINC SULFATE 220 MG ( 50 ) CAPSULE PO SCH (09:24)
[2020-02-11] MEDS: ENOXAPARIN 40MG/0.4ML SYR SUBCUT SCH (09:24)
[2020-02-11] MEDS: CEFTRIAXONE 1,000 MG in DEXTROSE 5% WATER 50 ML IV SCH (09:24)
[2020-02-11] MEDS: INSULIN LISPRO 100 UNITS/ML SUBCUT SCH ×3 (09:25→17:27)
[2020-02-11] MEDS ORDERED: POTASSIUM CHLORIDE 20MEQ/PACKET PO NR (11:00)
[2020-02-11] MEDS: LEVOFLOXACIN 250MG PREMIX 50 ML IV SCH (11:18)
[2020-02-11] MEDS ORDERED: POTASSIUM CHLORIDE INJ 40 MEQ in DEXT 5% WATER 250 ML IV NR (12:00)
[2020-02-11] MEDS ORDERED: CARVEDILOL 12.5MG TABLET PO SCH (17:00)
[2020-02-11] MEDS ORDERED: METOPROLOL TARTRATE 50MG TABLET PO SCH (17:00)
== END 2020-02-11 18:45 | DRG 871 ==
LOC: ER 07:50 → 5EST 10:59 → SUPCPDRO 11:04 → EDBEDREQ 11:20 → EDBEDREQSVC 11:20 → ENRESERV 12:20
PROVIDERS: ADMIT Internal Medicine; ATTEND Internal Medicine
DX: A41.9 Sepsis, unspecified organism (principal); N17.0 Acute kidney failure with tubular necrosis; G92 Toxic encephalopathy; E87.0 Hyperosmolality and hypernatremia; Z20.828 Contact with and (suspected) exposure to other viral communicable diseases; I10 Essential (primary) hypertension; E11.9 Type 2 diabetes mellitus without complications; Z86.73 Personal history of transient ischemic attack (TIA), and cerebral infarction without residual deficits; Z79.82 Long term (current) use of aspirin; Z79.899 Other long term (current) drug therapy; L89.156 Pressure-induced deep tissue damage of sacral region; K31.84 Gastroparesis; S30.92XA Unspecified superficial injury of abdominal wall, initial encounter; S30.94XA Unspecified superficial injury of scrotum and testes, initial encounter; R65.20 Severe sepsis without septic shock
CPT/HCPCS: 36415; 70551; 71045; 74176; 80048; 80053; 80061; 81003; 82040; 82550; 82553; 82962; 83036; 83605; 83735; 84100; 84134; 84145; 84439; 84443; 84484; 85025; 87635; 93005; 93970; 97162; 99291; J0696; J1650; J1815; J1885; J1956; J2405; J2543; J2765; J3370; J3480; J7030; J7060

== ENCOUNTER 2021-06-17 11:40 | Inpatient (IN) | payer MEDICARE, MEDICAID ==
[~2021-06-17] VITALS: Ht 175.3 cm; Wt 78.7 kg
[~2021-06-17 11:40] MED LIST changes: -ASPI-1158 PO; +ASPI-1406 PO
[2021-06-17] MEDS ORDERED: ONDANSETRON HCL 4MG/2ML INJ IV ONE (12:00)
[2021-06-17] MEDS ORDERED: PANTOPRAZOLE SODIUM 40 MG/VIAL IV ONE (12:00)
[2021-06-17] MEDS ORDERED: SODIUM CHLORIDE 0.9% 500 ML IV ONE (12:00)
[2021-06-17 12:42] LABS: BASOPHILS % 0.2 % (0.0-2.0); HEMATOCRIT. 48.8 % (42.0-52.0); HEMOGLOBIN. 15.7 g/dL (14.0-18.0); MEAN CORPUSCULAR HEMOGLOBIN 28.6 pg (28.0-32.0); MEAN CORPUSCULAR VOLUME 88.6 fL (80.0-94.0); MEAN PLATELET VOLUME 9.8 fl (7.4-10.4); NEUTROPHILS % 81.8 % (40.0-76.0); PLATELET 102 x1000/uL (130-400); RED BLOOD CELL COUNT 5.51 mill/uL (4.7-6.1); RED CELL DISTRIBUTION WIDTH 15.7 % (11.6-14.6)
[2021-06-17 12:52] LABS: INR 1.2; PROTHROMBIN TIME 12.3 sec (9.6-11.0)
[2021-06-17 12:55] LABS: TOTAL IRON BINDING CAPACITY 249 ug/dL (250-450)
[2021-06-17 12:57] LABS: CHLORIDE 107 mEq/L (98-107)
[2021-06-17 13:11] LABS: FOLIC ACID (FOLATE) SERUM 18.4 ng/mL (>5.38)
[2021-06-17 13:31] LABS: CLARITY URINE CLOUDY (CLEAR); COLOR URINE DARK YELLOW (YELLOW); KETONES URINE 1+ (NEGATIVE); LEUKOCYTE ESTERASE URINE TRACE (NEGATIVE); NITRITE URINE NEGATIVE (NEGATIVE); OCCULT BLOOD URINE NEGATIVE (NEGATIVE); PROTEIN URINE 2+ (NEGATIVE); SPECIFIC GRAVITY URINE 1.027 (1.005-1.030)
[2021-06-17] MEDS ORDERED: PIPERACILLIN/TAZ 3.375G PREMIX 50 ML IV NR (14:15)
[2021-06-17] MEDS ORDERED: PIPERACILLIN/TAZOBACTAM 3.375GM/50ML PREMIX IV ONE (14:15)
[2021-06-17] MEDS ORDERED: SODIUM CHLORIDE 0.9% 1,000 ML IV NR (14:15)
[2021-06-17] MEDS ORDERED: LORAZEPAM 2MG/ML CPJ IV ONE (16:30)
[2021-06-17] MEDS: SODIUM CHLORIDE 0.9% 1,000 ML IV SCH (17:32)
[2021-06-18] MEDS: SODIUM CHLORIDE 0.9% 1,000 ML IV SCH ×2 (04:04→09:37)
[2021-06-18] MEDS ORDERED: ONDANSETRON HCL 4MG/2ML INJ IV PRN (08:15)
[2021-06-18] MEDS ORDERED: CEFTRIAXONE 1 G PREMIX 50 ML IV SCH (08:15)
[2021-06-18] MEDS ORDERED: ACETAMINOPHEN 325MG TABLET PO PRN (08:15)
[2021-06-18] MEDS: METRONIDAZOLE 500 MG PREMIX 100 ML IV SCH ×3 (09:08→21:43)
[2021-06-18] MEDS: CEFTRIAXONE 1,000 MG in DEXTROSE 5% WATER 50 ML IV SCH (09:08)
[2021-06-18] MEDS: PANTOPRAZOLE SODIUM 40 MG/VIAL IV SCH ×2 (09:28→21:13)
[2021-06-18] MEDS: SODIUM CHLORIDE 0.45% 1,000 ML IV SCH ×2 (10:34→21:36)
[2021-06-18] MEDS ORDERED: VANCOMYCIN 1250MG in DEXTROSE 5% WATER 250ML IV SCH (13:00)
[2021-06-18 13:15] LABS: BG BASE EXCESS -4.4 mmol/L (-2.0-2.0); BG CARBOXYHEMOGLOBIN 0.5 % (0.5-1.5); BG DEOXYHEMOGLOBIN 1.9 % (0.0-5.0); BG FRACTION INSPIRED OXYGEN 36; BG HCO3 ACT 20.6 mmol/L (22.0-26.0); BG METHEMOGLOBIN 0.1 % (0.0-1.5); BG OXYGEN SATURATION 98.1 % (92.0-98.5); BG OXYHEMOGLOBIN 97.5 % (94.0-97.0); BG PCO2 37.8 mmHg (35.0-45.0); BG PH 7.354 (7.350-7.450); BG PO2 109.3 mmHg (75.0-100.0); BG SAMPLE SITE RIGHT RADIAL; BG TOTAL HEMOGLOBIN 13.9 g/dL (12.0-18.0); BG VENT MODE NASAL CANNULA
[2021-06-18] MEDS ORDERED: PANTOPRAZOLE SODIUM 40 MG/VIAL IV SCH (14:30)
[2021-06-18 15:59] VITALS: BP 113/83
[2021-06-18 16:00] VITALS: BP 113/83
[2021-06-18] MEDS ORDERED: IPRATROPIUM/ALBUTEROL 0.5-3(2.5)MG/3ML NEB HHN PRN (17:15)
[2021-06-18 18:00] VITALS: BP 98/37
[2021-06-18 18:12] LABS: HEMOGLOBIN 14.1 g/dL (14.0-18.0)
[2021-06-18 20:00] VITALS: BP 100/60
[2021-06-18] MEDS: IPRATROPIUM/ALBUTEROL 0.5-3(2.5)MG/3ML NEB HHN SCH (20:38)
[2021-06-18 22:00] VITALS: BP 109/71
[2021-06-19] VITALS (12 sets, daily range): BP systolic 104–135; BP diastolic 63–94
[2021-06-19] MEDS: IPRATROPIUM/ALBUTEROL 0.5-3(2.5)MG/3ML NEB HHN SCH ×5 (01:35→22:14)
[2021-06-19] MEDS: METRONIDAZOLE 500 MG PREMIX 100 ML IV SCH ×3 (05:57→22:24)
[2021-06-19 06:58] LABS: BASOPHILS % 0.4 % (0.0-2.0); EOSINOPHILS % 0.1 % (0.0-5.0); HEMATOCRIT. 37.8 % (42.0-52.0); HEMOGLOBIN. 12.8 g/dL (14.0-18.0); LYMPHOCYTES % 10.2 % (20.0-50.0); MEAN CORPUSCULAR HEMOGLOBIN 29.8 pg (28.0-32.0); MEAN PLATELET VOLUME 10.2 fl (7.4-10.4); MONOCYTES % 2.7 % (2.0-8.0); NEUTROPHILS % 86.6 % (40.0-76.0); PLATELET 82 x1000/uL (130-400); RED BLOOD CELL COUNT 4.29 mill/uL (4.7-6.1); RED CELL DISTRIBUTION WIDTH 15.6 % (11.6-14.6)
[2021-06-19] MEDS: CEFTRIAXONE 1,000 MG in DEXTROSE 5% WATER 50 ML IV SCH (07:54)
[2021-06-19 09:31] LABS: CHLORIDE 115 mEq/L (98-107)
[2021-06-19 09:37] LABS: PHOSPHORUS 1.6 mg/dL (2.5-4.9)
[2021-06-19] MEDS: PANTOPRAZOLE SODIUM 40 MG/VIAL IV SCH ×2 (10:39→20:45)
[2021-06-19] MEDS: SODIUM CHLORIDE 0.45% 1,000 ML IV SCH (11:15)
[2021-06-19] MEDS: NYSTATIN POWDER 15GM TOP SCH ×2 (13:00→16:14)
[2021-06-19] MEDS: VANCOMYCIN 1 G PREMIX 200 ML IV SCH (15:43)
[2021-06-19] MEDS ORDERED: PANTOPRAZOLE SODIUM 40 MG/VIAL IV SCH (21:00)
[2021-06-19] MEDS: ACETYLCYSTEINE 100MG/ML 10% VIAL 4ML INH SCH (22:13)
[2021-06-19] MEDS: LACTULOSE 20G/30ML UDC PO SCH (22:21)
[2021-06-20] VITALS (11 sets, daily range): BP systolic 129–156; BP diastolic 82–101
[2021-06-20] MEDS: SODIUM CHLORIDE 0.45% 1,000 ML IV SCH ×2 (00:29→13:22)
[2021-06-20] MEDS: IPRATROPIUM/ALBUTEROL 0.5-3(2.5)MG/3ML NEB HHN SCH ×5 (04:15→23:40)
[2021-06-20] MEDS: LACTULOSE 20G/30ML UDC PO SCH ×3 (06:02→21:28)
[2021-06-20] MEDS: METRONIDAZOLE 500 MG PREMIX 100 ML IV SCH ×3 (06:03→21:28)
[2021-06-20 06:36] LABS: BASOPHILS % 0.3 % (0.0-2.0); HEMATOCRIT. 38.2 % (42.0-52.0); HEMOGLOBIN. 12.6 g/dL (14.0-18.0); LYMPHOCYTES % 15.1 % (20.0-50.0); MEAN CORPUSCULAR HEMOGLOBIN 28.9 pg (28.0-32.0); MEAN CORPUSCULAR VOLUME 88.1 fL (80.0-94.0); MEAN PLATELET VOLUME 9.3 fl (7.4-10.4); MONOCYTES % 4.4 % (2.0-8.0); NEUTROPHILS % 80.2 % (40.0-76.0); PLATELET 93 x1000/uL (130-400); RED BLOOD CELL COUNT 4.34 mill/uL (4.7-6.1); RED CELL DISTRIBUTION WIDTH 15.9 % (11.6-14.6)
[2021-06-20 07:35] LABS: CHLORIDE 110 mEq/L (98-107)
[2021-06-20] MEDS: ACETYLCYSTEINE 100MG/ML 10% VIAL 4ML INH SCH ×3 (07:56→23:40)
[2021-06-20] MEDS: CEFTRIAXONE 1,000 MG in DEXTROSE 5% WATER 50 ML IV SCH (08:31)
[2021-06-20] MEDS: PANTOPRAZOLE SODIUM 40 MG/VIAL IV SCH ×2 (08:31→21:28)
[2021-06-20] MEDS: NYSTATIN POWDER 15GM TOP SCH ×3 (08:32→16:52)
[2021-06-20] MEDS: VANCOMYCIN 1 G PREMIX 200 ML IV SCH (09:32)
[2021-06-20] MEDS: KCL 20MEQ/100ML PREMIX 100 ML IV SCH ×2 (11:43→13:22)
[2021-06-20] MEDS ORDERED: PROPOFOL 200MG/20ML VIAL IV ONE (17:08)
[2021-06-20] MEDS ORDERED: ONDANSETRON HCL 4MG/2ML INJ ONE (17:10)
[2021-06-20] MEDS ORDERED: DEXAMETHASONE 4MG/ML 1ML VIAL ONE (17:10)
[2021-06-21] VITALS (12 sets, daily range): BP systolic 125–158; BP diastolic 43–105
[2021-06-21] MEDS: VANCOMYCIN 1 G PREMIX 200 ML IV SCH (03:44)
[2021-06-21] MEDS: METRONIDAZOLE 500 MG PREMIX 100 ML IV SCH ×3 (05:27→22:44)
[2021-06-21] MEDS: LACTULOSE 20G/30ML UDC PO SCH (05:27)
[2021-06-21 07:10] LABS: CHLORIDE 109 mEq/L (98-107)
[2021-06-21 07:16] LABS: BASOPHILS % 0.1 % (0.0-2.0); EOSINOPHILS % 0.1 % (0.0-5.0); HEMATOCRIT. 36.9 % (42.0-52.0); HEMOGLOBIN. 12.4 g/dL (14.0-18.0); LYMPHOCYTES % 20.2 % (20.0-50.0); MEAN CORPUSCULAR HEMOGLOBIN 29.7 pg (28.0-32.0); MEAN CORPUSCULAR VOLUME 88.4 fL (80.0-94.0); MEAN PLATELET VOLUME 9.1 fl (7.4-10.4); MONOCYTES % 5.3 % (2.0-8.0); NEUTROPHILS % 74.3 % (40.0-76.0); PLATELET 90 x1000/uL (130-400); RED BLOOD CELL COUNT 4.17 mill/uL (4.7-6.1); RED CELL DISTRIBUTION WIDTH 15.9 % (11.6-14.6)
[2021-06-21] MEDS ORDERED: POTASSIUM CHLORIDE 20MEQ TABLET SR PO NR (08:00)
[2021-06-21] MEDS: ACETYLCYSTEINE 100MG/ML 10% VIAL 4ML INH SCH ×2 (08:54→14:36)
[2021-06-21] MEDS: IPRATROPIUM/ALBUTEROL 0.5-3(2.5)MG/3ML NEB HHN SCH ×2 (08:55→14:32)
[2021-06-21] MEDS: PANTOPRAZOLE SODIUM 40 MG/VIAL IV SCH ×2 (08:58→21:27)
[2021-06-21] MEDS: CEFTRIAXONE 1,000 MG in DEXTROSE 5% WATER 50 ML IV SCH (08:59)
[2021-06-21] MEDS: NYSTATIN POWDER 15GM TOP SCH ×3 (08:59→18:18)
[2021-06-21] MEDS: SODIUM CHLORIDE 0.45% 1,000 ML IV SCH (09:00)
[2021-06-22] VITALS (12 sets, daily range): BP systolic 103–169; BP diastolic 55–115
[2021-06-22] MEDS: ACETYLCYSTEINE 100MG/ML 10% VIAL 4ML INH SCH ×4 (00:22→23:04)
[2021-06-22] MEDS: SODIUM CHLORIDE 0.45% 1,000 ML IV SCH (05:38)
[2021-06-22] MEDS: METRONIDAZOLE 500 MG PREMIX 100 ML IV SCH ×3 (05:52→23:10)
[2021-06-22 07:00] LABS: BASOPHILS % 0.1 % (0.0-2.0); HEMATOCRIT. 38.6 % (42.0-52.0); HEMOGLOBIN. 12.9 g/dL (14.0-18.0); LYMPHOCYTES % 15.3 % (20.0-50.0); MEAN CORPUSCULAR HEMOGLOBIN 29.5 pg (28.0-32.0); MEAN CORPUSCULAR VOLUME 88.3 fL (80.0-94.0); MONOCYTES % 4.9 % (2.0-8.0); NEUTROPHILS % 79.7 % (40.0-76.0); PLATELET 93 x1000/uL (130-400); RED BLOOD CELL COUNT 4.37 mill/uL (4.7-6.1); RED CELL DISTRIBUTION WIDTH 15.9 % (11.6-14.6)
[2021-06-22 07:24] LABS: CHLORIDE 108 mEq/L (98-107)
[2021-06-22] MEDS: IPRATROPIUM/ALBUTEROL 0.5-3(2.5)MG/3ML NEB HHN SCH ×3 (07:41→23:04)
[2021-06-22] MEDS: CEFTRIAXONE 1,000 MG in DEXTROSE 5% WATER 50 ML IV SCH (08:59)
[2021-06-22] MEDS: NYSTATIN POWDER 15GM TOP SCH ×3 (08:59→18:26)
[2021-06-22] MEDS: PANTOPRAZOLE SODIUM 40 MG/VIAL IV SCH ×2 (08:59→20:47)
[2021-06-22] MEDS ORDERED: POTASSIUM CHLORIDE 20MEQ/PACKET PO NR (09:15)
[2021-06-22] MEDS ORDERED: KCL 20MEQ/100ML PREMIX 100 ML IV NR (10:30)
[2021-06-22] MEDS: LACTULOSE 20G/30ML UDC PO SCH ×2 (13:31→18:26)
[2021-06-22] MEDS: MORPHINE SULFATE 2 MG/ML CPJ (NOT FOR IM USE) IV PRN (14:20)
[2021-06-22] MEDS: RIFAXIMIN 550 MG TABLET PO SCH (20:47)
[2021-06-23] VITALS (12 sets, daily range): BP systolic 85–149; BP diastolic 63–95
[2021-06-23 06:10] LABS: BASOPHILS % 0.2 % (0.0-2.0); HEMATOCRIT. 37.7 % (42.0-52.0); HEMOGLOBIN. 12.7 g/dL (14.0-18.0); LYMPHOCYTES % 26.7 % (20.0-50.0); MEAN CORPUSCULAR HEMOGLOBIN 29.4 pg (28.0-32.0); MEAN CORPUSCULAR VOLUME 87.4 fL (80.0-94.0); MEAN PLATELET VOLUME 8.7 fl (7.4-10.4); MONOCYTES % 9.3 % (2.0-8.0); NEUTROPHILS % 63.8 % (40.0-76.0); PLATELET 121 x1000/uL (130-400); RED BLOOD CELL COUNT 4.31 mill/uL (4.7-6.1); RED CELL DISTRIBUTION WIDTH 15.9 % (11.6-14.6)
[2021-06-23 06:22] LABS: CHLORIDE 110 mEq/L (98-107)
[2021-06-23 06:28] LABS: PHOSPHORUS 2.3 mg/dL (2.5-4.9)
[2021-06-23] MEDS: METRONIDAZOLE 500 MG PREMIX 100 ML IV SCH ×3 (06:37→21:09)
[2021-06-23] MEDS: LACTULOSE 20G/30ML UDC PO SCH ×2 (08:30→16:33)
[2021-06-23] MEDS: RIFAXIMIN 550 MG TABLET PO SCH ×2 (09:06→21:00)
[2021-06-23] MEDS: NYSTATIN POWDER 15GM TOP SCH ×3 (09:06→17:59)
[2021-06-23] MEDS: PANTOPRAZOLE SODIUM 40 MG/VIAL IV SCH ×2 (09:06→21:09)
[2021-06-23] MEDS: CEFTRIAXONE 1,000 MG in DEXTROSE 5% WATER 50 ML IV SCH (09:06)
[2021-06-23] MEDS: IPRATROPIUM/ALBUTEROL 0.5-3(2.5)MG/3ML NEB HHN SCH ×2 (10:16→15:26)
[2021-06-23] MEDS: ACETYLCYSTEINE 100MG/ML 10% VIAL 4ML INH SCH ×2 (10:17→15:27)
[2021-06-23] MEDS ORDERED: POTASSIUM CHLORIDE 20MEQ/PACKET PO NR (10:45)
[2021-06-23] MEDS: MORPHINE SULFATE 2 MG/ML CPJ (NOT FOR IM USE) IV PRN (10:56)
[2021-06-23] MEDS ORDERED: POTASSIUM PHOS,M-BASIC-D-BASIC 20 MMOL in DEXT 5% WATER 243.3333 ML IV ONE (12:30)
[2021-06-23] MEDS ORDERED: RACEPINEPHRINE 2.25% 0.5ML NEB VIAL HHN NR (12:45)
[2021-06-24] VITALS (12 sets, daily range): BP systolic 94–140; BP diastolic 57–91
[2021-06-24] MEDS: METRONIDAZOLE 500 MG PREMIX 100 ML IV SCH ×3 (05:40→21:36)
[2021-06-24] MEDS: LACTULOSE 20G/30ML UDC PO SCH ×2 (07:45→17:00)
[2021-06-24] MEDS: NYSTATIN POWDER 15GM TOP SCH ×3 (08:09→17:00)
[2021-06-24] MEDS: CEFTRIAXONE 1,000 MG in DEXTROSE 5% WATER 50 ML IV SCH (08:09)
[2021-06-24] MEDS: PANTOPRAZOLE SODIUM 40 MG/VIAL IV SCH ×2 (08:09→21:35)
[2021-06-24] MEDS: RIFAXIMIN 550 MG TABLET PO SCH ×2 (08:09→21:35)
[2021-06-24 09:58] LABS: BASOPHILS % 0.4 % (0.0-2.0); EOSINOPHILS % 0.1 % (0.0-5.0); HEMATOCRIT. 35.9 % (42.0-52.0); HEMOGLOBIN. 12.1 g/dL (14.0-18.0); LYMPHOCYTES % 29.8 % (20.0-50.0); MEAN CORPUSCULAR HEMOGLOBIN 29.4 pg (28.0-32.0); MEAN CORPUSCULAR VOLUME 87.2 fL (80.0-94.0); MEAN PLATELET VOLUME 9.3 fl (7.4-10.4); MONOCYTES % 8.3 % (2.0-8.0); NEUTROPHILS % 61.4 % (40.0-76.0); PLATELET 149 x1000/uL (130-400); RED BLOOD CELL COUNT 4.12 mill/uL (4.7-6.1); RED CELL DISTRIBUTION WIDTH 15.6 % (11.6-14.6)
[2021-06-24 10:03] LABS: CHLORIDE 108 mEq/L (98-107)
[2021-06-24] MEDS: IPRATROPIUM/ALBUTEROL 0.5-3(2.5)MG/3ML NEB HHN SCH (13:53)
[2021-06-24] MEDS: ACETYLCYSTEINE 100MG/ML 10% VIAL 4ML INH SCH (13:54)
[2021-06-24] MEDS ORDERED: NALOXONE HCL 0.4MG/ML VIAL IV PRN (14:00)
[2021-06-24] MEDS ORDERED: POTASSIUM CHLORIDE INJ 40 MEQ in DEXT 5% WATER 250 ML IV ONE (19:15)
[2021-06-24] MEDS: KCL 20MEQ/100ML PREMIX 100 ML IV SCH ×2 (21:35→23:50)
[2021-06-25 00:05] VITALS: BP 109/77
[2021-06-25 02:05] VITALS: BP 104/68
[2021-06-25 03:37] VITALS: BP 104/68
[2021-06-25 04:01] VITALS: BP 121/77
[2021-06-25 06:00] VITALS: BP 119/74
[2021-06-25 07:20] VITALS: BP 123/74
[2021-06-25 07:46] LABS: BASOPHILS % 0.3 % (0.0-2.0); EOSINOPHILS % 0.1 % (0.0-5.0); HEMATOCRIT. 34.4 % (42.0-52.0); HEMOGLOBIN. 11.5 g/dL (14.0-18.0); LYMPHOCYTES % 29.3 % (20.0-50.0); MEAN CORPUSCULAR HEMOGLOBIN 29.4 pg (28.0-32.0); MEAN CORPUSCULAR VOLUME 87.8 fL (80.0-94.0); MEAN PLATELET VOLUME 9.7 fl (7.4-10.4); MONOCYTES % 10.1 % (2.0-8.0); NEUTROPHILS % 60.2 % (40.0-76.0); PLATELET 170 x1000/uL (130-400); RED BLOOD CELL COUNT 3.92 mill/uL (4.7-6.1); RED CELL DISTRIBUTION WIDTH 15.9 % (11.6-14.6)
[2021-06-25 08:14] LABS: CHLORIDE 109 mEq/L (98-107)
== END 2021-06-25 08:00 | DRG 871 ==
LOC: ER 12:16 → MICUSO 14:42 → EDBEDREQSVC 18:30 → CVICU 06-18 14:44 → 3WST 06-18 15:03
PROVIDERS: ADMIT Internal Medicine; ATTEND Internal Medicine
PROC: 0DB68ZX Excision of Stomach, Via Natural or Artificial Opening Endoscopic, Diagnostic (ICD-10-PCS; principal; 2021-06-20)
DX: A41.9 Sepsis, unspecified organism (principal); G93.41 Metabolic encephalopathy; J69.0 Pneumonitis due to inhalation of food and vomit; J96.01 Acute respiratory failure with hypoxia; R65.21 Severe sepsis with septic shock; N17.0 Acute kidney failure with tubular necrosis; K29.71 Gastritis, unspecified, with bleeding; K56.7 Ileus, unspecified; B35.3 Tinea pedis; D64.9 Anemia, unspecified; E11.51 Type 2 diabetes mellitus with diabetic peripheral angiopathy without gangrene; D69.6 Thrombocytopenia, unspecified; E86.0 Dehydration; F03.90 Unspecified dementia, unspecified severity, without behavioral disturbance, psychotic disturbance, mood disturbance, and anxiety; I10 Essential (primary) hypertension; K27.9 Peptic ulcer, site unspecified, unspecified as acute or chronic, without hemorrhage or perforation; K52.9 Noninfective gastroenteritis and colitis, unspecified; E78.5 Hyperlipidemia, unspecified; E83.39 Other disorders of phosphorus metabolism; H54.62 Unqualified visual loss, left eye, normal vision right eye; F32.A Depression, unspecified; K44.9 Diaphragmatic hernia without obstruction or gangrene; E87.6 Hypokalemia; Z20.822 Contact with and (suspected) exposure to COVID-19; Z79.82 Long term (current) use of aspirin; Z82.49 Family history of ischemic heart disease and other diseases of the circulatory system; Z83.3 Family history of diabetes mellitus; Z86.718 Personal history of other venous thrombosis and embolism; Z86.73 Personal history of transient ischemic attack (TIA), and cerebral infarction without residual deficits; Z87.891 Personal history of nicotine dependence; Z95.820 Peripheral vascular angioplasty status with implants and grafts; Z95.828 Presence of other vascular implants and grafts
CPT/HCPCS: 36415; 36600; 70551; 71045; 74018; 74176; 76700; 80048; 80053; 80076; 80202; 81003; 82140; 82248; 82375; 82607; 82728; 82746; 82805; 82962; 83540; 83550; 83605; 83735; 83880; 84100; 84145; 84443; 84484; 85014; 85018; 85025; 86850; 86900; 87426; 88305; 88312; 88313; 92610; 93306; 94640; 94667; 97162; 99291; C9113; J0696; J1100; J2060; J2270; J2405; J2543; J2704; J3370; J3480; J3490; J7040; J7060; J7608

== ENCOUNTER 2021-06-29 12:04 | Inpatient (IN) | payer MEDICARE, MEDICAID ==
[~2021-06-29] VITALS: Ht 188 cm; Wt 6.4 kg
[2021-06-29 13:58] LABS: BASOPHILS % 1.3 % (0.0-2.0); EOSINOPHILS % 3.5 % (0.0-5.0); HEMATOCRIT. 34.8 % (42.0-52.0); HEMOGLOBIN. 11.1 g/dL (14.0-18.0); LYMPHOCYTES % 27.5 % (20.0-50.0); MEAN CORPUSCULAR VOLUME 87.4 fL (80.0-94.0); MEAN PLATELET VOLUME 8.5 fl (7.4-10.4); MONOCYTES % 12.5 % (2.0-8.0); NEUTROPHILS % 55.2 % (40.0-76.0); PLATELET 381 x1000/uL (130-400); RED BLOOD CELL COUNT 3.98 mill/uL (4.7-6.1); RED CELL DISTRIBUTION WIDTH 15.6 % (11.6-14.6)
[2021-06-29 14:04] LABS: CHLORIDE 110 mEq/L (98-107)
[2021-06-29 14:08] LABS: ETHANOL BLOOD < 10 mg/dL
[2021-06-29 14:40] LABS: CLARITY URINE TURBID (CLEAR); COLOR URINE YELLOW (YELLOW); KETONES URINE NEGATIVE (NEGATIVE); LEUKOCYTE ESTERASE URINE NEGATIVE (NEGATIVE); NITRITE URINE NEGATIVE (NEGATIVE); OCCULT BLOOD URINE NEGATIVE (NEGATIVE); PH URINE 7.5 (4.5-8.0); PROTEIN URINE 1+ (NEGATIVE); UROBILINOGEN URINE 0.2 E.U./dL (0.2-1.0)
[2021-06-29 15:04] LABS: *AMPHETAMINES SCREEN URINE NEGATIVE (NEGATIVE); *BARBITURATES SCREEN URINE NEGATIVE (NEGATIVE); *BENZODIAZEPINES SCREEN URINE NEGATIVE (NEGATIVE); *COCAINE SCREEN URINE NEGATIVE (NEGATIVE)
[2021-06-29 15:05] LABS: CANNABINOID URINE SCREEN NEGATIVE (NEGATIVE); METHADONE URINE SCREEN NEGATIVE (NEGATIVE); OPIATES URINE SCREEN NEGATIVE (NEGATIVE); PHENCYCLIDINE URINE SCREEN NEGATIVE (NEGATIVE)
[2021-06-29] MEDS ORDERED: ACETAMINOPHEN 325MG TABLET PO PRN (16:15)
[2021-06-29] MEDS ORDERED: CARVEDILOL 3.125 MG TABLET PO SCH (17:00)
[2021-06-29] MEDS ORDERED: IOHEXOL-350 100 ML BOTTLE ONE (17:28)
[2021-06-29] MEDS: ENOXAPARIN 40MG/0.4ML SYR SUBCUT SCH (17:52)
[2021-06-29] MEDS: ASPIRIN 300MG SUPP PR SCH (18:03)
[2021-06-30 05:19] LABS: BASOPHILS % 0.9 % (0.0-2.0); HEMATOCRIT. 37.4 % (42.0-52.0); HEMOGLOBIN. 11.9 g/dL (14.0-18.0); LYMPHOCYTES % 33.4 % (20.0-50.0); MEAN CORPUSCULAR HEMOGLOBIN 27.8 pg (28.0-32.0); MEAN CORPUSCULAR VOLUME 87.7 fL (80.0-94.0); MEAN PLATELET VOLUME 8.9 fl (7.4-10.4); MONOCYTES % 10.3 % (2.0-8.0); NEUTROPHILS % 52.4 % (40.0-76.0); PLATELET 362 x1000/uL (130-400); RED BLOOD CELL COUNT 4.27 mill/uL (4.7-6.1); RED CELL DISTRIBUTION WIDTH 15.3 % (11.6-14.6)
[2021-06-30 05:20] LABS: CHLORIDE 111 mEq/L (98-107)
[2021-06-30 05:29] LABS: LDL CHOLESTEROL 48 mg/dL (5-100)
[2021-06-30 05:31] LABS: HDL CHOLESTEROL 25 mg/dL (40-59)
[2021-06-30 06:51] VITALS: BP 122/74
[2021-06-30 08:00] VITALS: BP_SYST 120; BP_SYST 122; BP_SYST 133; BP_DIAS 74; BP_DIAS 77; BP_DIAS 84
[2021-06-30] MEDS: ASPIRIN 300MG SUPP PR SCH (09:00)
[2021-06-30] MEDS ORDERED: ASPIRIN 81MG TABLET PO SCH (09:00)
[2021-06-30 12:00] VITALS: BP 139/81
[2021-06-30] MEDS: DEXT 5%/0.9% NACL 1,000 ML IV SCH ×2 (12:25→23:47)
[2021-06-30 16:00] VITALS: BP 130/72
[2021-06-30] MEDS: ENOXAPARIN 40MG/0.4ML SYR SUBCUT SCH (17:04)
[2021-06-30 18:53] LABS: VITAMIN B12 SERUM 659 pg/mL (211-911)
[2021-06-30 20:00] VITALS: BP 122/70
[2021-06-30] MEDS: CARVEDILOL 3.125 MG TABLET PO SCH (20:56)
[2021-07-01] VITALS: BP 125/78
[2021-07-01 04:00] VITALS: BP 141/89
[2021-07-01 08:00] VITALS: BP 136/93
[2021-07-01 08:07] LABS: EOSINOPHILS % 1.3 % (0.0-5.0); HEMATOCRIT. 36.3 % (42.0-52.0); HEMOGLOBIN. 12.1 g/dL (14.0-18.0); LYMPHOCYTES % 19.7 % (20.0-50.0); MEAN CORPUSCULAR HEMOGLOBIN 29.4 pg (28.0-32.0); MEAN CORPUSCULAR VOLUME 88.1 fL (80.0-94.0); MEAN PLATELET VOLUME 8.6 fl (7.4-10.4); MONOCYTES % 9.4 % (2.0-8.0); NEUTROPHILS % 68.6 % (40.0-76.0); PLATELET 381 x1000/uL (130-400); RED BLOOD CELL COUNT 4.12 mill/uL (4.7-6.1); RED CELL DISTRIBUTION WIDTH 15.6 % (11.6-14.6)
[2021-07-01 08:12] LABS: CHLORIDE 114 mEq/L (98-107)
[2021-07-01] MEDS: CARVEDILOL 3.125 MG TABLET PO SCH ×2 (11:55→20:55)
[2021-07-01] MEDS: ASPIRIN 300MG SUPP PR SCH (11:55)
[2021-07-01] MEDS: DEXT 5%/0.9% NACL 1,000 ML IV SCH ×2 (11:55→23:44)
[2021-07-01 12:00] VITALS: BP 141/87
[2021-07-01 16:00] VITALS: BP 145/86
[2021-07-01] MEDS: ENOXAPARIN 40MG/0.4ML SYR SUBCUT SCH (17:14)
[2021-07-01] MEDS ORDERED: DEXTROSE 50% WATER 50ML SYRINGE IV PRN (17:45)
[2021-07-01 20:00] VITALS: BP 140/64
[2021-07-01] MEDS: KCL 20MEQ/100ML PREMIX 100 ML IV NR ×2 (20:20→23:44)
[2021-07-01] MEDS: BLOOD SUGAR DIAGNOSTIC STRIP TEST SCH (20:55)
[2021-07-01] MEDS: ATORVASTATIN CALCIUM 10MG TABLET PO SCH (20:55)
[2021-07-01] MEDS: INSULIN LISPRO 100 UNITS/ML SUBCUT SCH (20:56)
[2021-07-02] VITALS: BP 148/78
[2021-07-02] MEDS: KCL 20MEQ/100ML PREMIX 100 ML IV NR (01:21)
[2021-07-02 04:00] VITALS: BP 127/71
[2021-07-02] MEDS: BLOOD SUGAR DIAGNOSTIC STRIP TEST SCH ×4 (06:08→21:13)
[2021-07-02] MEDS: INSULIN LISPRO 100 UNITS/ML SUBCUT SCH ×4 (06:15→21:17)
[2021-07-02 07:32] LABS: BASOPHILS % 0.6 % (0.0-2.0); EOSINOPHILS % 1.1 % (0.0-5.0); HEMATOCRIT. 32.9 % (42.0-52.0); HEMOGLOBIN. 10.9 g/dL (14.0-18.0); LYMPHOCYTES % 20.7 % (20.0-50.0); MEAN CORPUSCULAR HEMOGLOBIN 28.8 pg (28.0-32.0); MEAN CORPUSCULAR VOLUME 87.3 fL (80.0-94.0); MONOCYTES % 8.5 % (2.0-8.0); NEUTROPHILS % 69.1 % (40.0-76.0); PLATELET 345 x1000/uL (130-400); RED BLOOD CELL COUNT 3.77 mill/uL (4.7-6.1); RED CELL DISTRIBUTION WIDTH 15.4 % (11.6-14.6)
[2021-07-02 07:39] LABS: CHLORIDE 115 mEq/L (98-107)
[2021-07-02 08:00] VITALS: BP 125/72
[2021-07-02] MEDS ORDERED: ASPIRIN 300MG SUPP PR SCH (09:00)
[2021-07-02] MEDS: DEXT 5%/0.9% NACL 1,000 ML IV SCH ×2 (09:04→19:04)
[2021-07-02] MEDS: ASPIRIN 325MG EC TABLET PO SCH (10:37)
[2021-07-02] MEDS: CARVEDILOL 3.125 MG TABLET PO SCH ×2 (10:37→21:12)
[2021-07-02 12:00] VITALS: BP 122/75
[2021-07-02] MEDS ORDERED: ENOXAPARIN 30MG/0.3ML SYR SUBCUT SCH (13:30)
[2021-07-02 16:00] VITALS: BP 126/72
[2021-07-02 20:00] VITALS: BP 144/88
[2021-07-02] MEDS: ATORVASTATIN CALCIUM 10MG TABLET PO SCH (21:12)
[2021-07-02] MEDS: ENOXAPARIN 30MG/0.3ML SYR SUBCUT SCH (21:17)
[2021-07-03] VITALS: BP 138/84
[2021-07-03] MEDS: DEXT 5%/0.9% NACL 1,000 ML IV SCH ×2 (05:04→10:19)
[2021-07-03] MEDS: BLOOD SUGAR DIAGNOSTIC STRIP TEST SCH ×4 (07:08→22:33)
[2021-07-03] MEDS: INSULIN LISPRO 100 UNITS/ML SUBCUT SCH ×4 (07:15→21:00)
[2021-07-03 07:38] VITALS: BP 128/75
[2021-07-03] MEDS: ASPIRIN 325MG EC TABLET PO SCH (09:07)
[2021-07-03] MEDS: CARVEDILOL 3.125 MG TABLET PO SCH ×2 (09:08→21:43)
[2021-07-03 12:00] VITALS: BP 134/75
[2021-07-03 16:00] VITALS: BP 125/76
[2021-07-03] MEDS: ENOXAPARIN 30MG/0.3ML SYR SUBCUT SCH (21:43)
[2021-07-03] MEDS: ATORVASTATIN CALCIUM 10MG TABLET PO SCH (21:43)
[2021-07-04] VITALS: BP 124/80
[2021-07-04] MEDS: DEXT 5%/0.9% NACL 1,000 ML IV SCH ×3 (02:47→21:04)
[2021-07-04 04:00] VITALS: BP 130/76
[2021-07-04] MEDS: BLOOD SUGAR DIAGNOSTIC STRIP TEST SCH ×4 (06:25→21:00)
[2021-07-04] MEDS: INSULIN LISPRO 100 UNITS/ML SUBCUT SCH ×4 (07:15→21:00)
[2021-07-04 08:00] VITALS: BP 124/82
[2021-07-04] MEDS: ASPIRIN 325MG EC TABLET PO SCH (09:09)
[2021-07-04] MEDS: CARVEDILOL 3.125 MG TABLET PO SCH ×2 (09:09→22:59)
[2021-07-04 12:00] VITALS: BP 130/84
[2021-07-04 15:51] VITALS: BP 128/86
[2021-07-04 20:00] VITALS: BP 145/103
[2021-07-04] MEDS: ATORVASTATIN CALCIUM 10MG TABLET PO SCH (23:00)
[2021-07-04] MEDS: ENOXAPARIN 30MG/0.3ML SYR SUBCUT SCH (23:00)
[2021-07-05 04:00] VITALS: BP 159/88
[2021-07-05] MEDS: DEXT 5%/0.9% NACL 1,000 ML IV SCH (06:16)
[2021-07-05] MEDS: BLOOD SUGAR DIAGNOSTIC STRIP TEST SCH ×3 (06:45→13:07)
[2021-07-05] MEDS: INSULIN LISPRO 100 UNITS/ML SUBCUT SCH ×2 (07:15→12:15)
[2021-07-05 08:00] VITALS: BP 128/74
[2021-07-05] MEDS: ASPIRIN 325MG EC TABLET PO SCH (10:29)
[2021-07-05] MEDS: CARVEDILOL 3.125 MG TABLET PO SCH (10:31)
[2021-07-05] MEDS ORDERED: ASPI-867 PO (11:58)
[2021-07-05 12:00] VITALS: BP 146/103
[2021-07-05 16:00] VITALS: BP 138/104
[2021-07-05 17:00] VITALS: BP 135/82
[2021-07-05 17:36] VITALS: BP 119/72
== END 2021-07-05 18:10 | DRG 70 ==
LOC: ER 12:04 → 5WST 15:21 → EDBEDREQSVC 15:36 → EDBEDREQ 15:36 → ENRESERV 06-30 03:46
PROVIDERS: ADMIT Family Medicine Adult Medicine; ATTEND Family Medicine Adult Medicine
PROC: 4A00X4Z Measurement of Central Nervous Electrical Activity, External Approach (ICD-10-PCS; principal; 2021-07-03)
DX: G93.49 Other encephalopathy (principal); J12.9 Viral pneumonia, unspecified; E43 Unspecified severe protein-calorie malnutrition; E87.0 Hyperosmolality and hypernatremia; Z68.1 Body mass index [BMI] 19.9 or less, adult; E87.6 Hypokalemia; F32.A Depression, unspecified; I10 Essential (primary) hypertension; Z20.822 Contact with and (suspected) exposure to COVID-19; E11.65 Type 2 diabetes mellitus with hyperglycemia; Z74.01 Bed confinement status; Z86.73 Personal history of transient ischemic attack (TIA), and cerebral infarction without residual deficits
CPT/HCPCS: 36415; 70496; 70498; 70551; 71045; 80048; 80053; 80061; 80305; 80320; 81003; 82140; 82607; 82962; 83036; 83880; 84145; 84443; 84484; 85025; 87426; 92610; 93005; 93308; 95816; 99285; J1650; J1815; J3480; J7042; J7070; Q9967; A4315; G0480

== ENCOUNTER 2022-03-03 17:32 | Inpatient (IN) | payer MEDICARE, MEDICAID ==
[~2022-03-03] VITALS: Ht 157.5 cm; Wt 73.7 kg
[~2022-03-03 17:32] MED LIST changes: -ASPI-1406 PO; +ASPI-867 PO; -LEVO500T2 MT
[2022-03-03] MEDS ORDERED: SODIUM CHLORIDE 0.9% 1000ML BAG (SEPSIS BOLUS) IV ONE (18:00)
[2022-03-03 18:37] LABS: BASOPHILS % 0.9 % (0.0-2.0); EOSINOPHILS % 3.3 % (0.0-5.0); LYMPHOCYTES % 41.1 % (20.0-50.0); MEAN CORPUSCULAR HEMOGLOBIN 29.3 pg (28.0-32.0); MEAN CORPUSCULAR VOLUME 90.2 fL (80.0-94.0); MEAN PLATELET VOLUME 9.3 fl (7.4-10.4); NEUTROPHILS % 48.7 % (40.0-76.0); PLATELET 166 x1000/uL (130-400); RED CELL DISTRIBUTION WIDTH 16.8 % (11.6-14.6)
[2022-03-03 18:41] LABS: CHLORIDE 116 mEq/L (98-107)
[2022-03-03 19:06] LABS: CLARITY URINE CLEAR (CLEAR); COLOR URINE DARK YELLOW (YELLOW); KETONES URINE TRACE (NEGATIVE); LEUKOCYTE ESTERASE URINE NEGATIVE (NEGATIVE); NITRITE URINE NEGATIVE (NEGATIVE); OCCULT BLOOD URINE NEGATIVE (NEGATIVE); PH URINE 5.5 (4.5-8.0); PROTEIN URINE 1+ (NEGATIVE); SPECIFIC GRAVITY URINE 1.042 (1.005-1.030)
[2022-03-03] MEDS ORDERED: VANCOMYCIN 1G PREMIX 200 ML IV ONE (19:15)
[2022-03-03] MEDS ORDERED: PIPERACILLIN/TAZ 3.375G PREMIX 50 ML IV ONE (19:15)
[2022-03-03] MEDS ORDERED: ASPIRIN 300MG SUPP PR ONE (20:15)
[2022-03-03] MEDS ORDERED: ONDANSETRON HCL 4MG/2ML INJ IV PRN (21:15)
[2022-03-03] MEDS ORDERED: HYDROCODONE/ACETAMINOPHEN 5/325MG TABLET PO PRN (21:15)
[2022-03-03] MEDS ORDERED: GUAIFENESIN 200MG/10ML SUGAR FREE UDC PO PRN (21:15)
[2022-03-03] MEDS ORDERED: ACETAMINOPHEN 325MG TABLET PO PRN ×2 (21:15)
[2022-03-03] MEDS ORDERED: MAGNESIUM/ALUMINUM HYDROXIDE/SIMETHICONE 30ML UDC PO PRN (21:15)
[2022-03-03] MEDS ORDERED: IPRATROPIUM/ALBUTEROL 0.5-3(2.5)MG/3ML NEB NEB PRN (21:15)
[2022-03-03] MEDS ORDERED: CLONIDINE 0.1MG TABLET PO PRN (21:15)
[2022-03-03] MEDS: SODIUM CHLORIDE 0.45% 1,000 ML IV SCH (21:20)
[2022-03-03] MEDS ORDERED: ENOXAPARIN 40MG/0.4ML SYR SUBCUT SCH (21:23)
[2022-03-04] MEDS: SODIUM CHLORIDE 0.45% 1,000 ML IV SCH ×2 (04:42→22:19)
[2022-03-04 05:23] LABS: BASOPHILS % 0.7 % (0.0-2.0); EOSINOPHILS % 3.8 % (0.0-5.0); HEMATOCRIT. 38.8 % (42.0-52.0); HEMOGLOBIN. 12.6 g/dL (14.0-18.0); LYMPHOCYTES % 25.9 % (20.0-50.0); MEAN CORPUSCULAR HEMOGLOBIN 29.4 pg (28.0-32.0); MEAN CORPUSCULAR VOLUME 90.3 fL (80.0-94.0); MEAN PLATELET VOLUME 9.4 fl (7.4-10.4); MONOCYTES % 5.8 % (2.0-8.0); NEUTROPHILS % 63.8 % (40.0-76.0); PLATELET 141 x1000/uL (130-400)
[2022-03-04 05:31] LABS: CHLORIDE 118 mEq/L (98-107)
[2022-03-04 05:46] LABS: PHOSPHORUS 2.6 mg/dL (2.5-4.9); T4 FREE 1.12 ng/dL (0.76-1.46)
[2022-03-04 09:00] VITALS: BP 148/85
[2022-03-04 12:00] VITALS: BP 131/75
[2022-03-04] MEDS: ENOXAPARIN 30MG/0.3ML SYR SUBCUT SCH ×2 (13:56→22:19)
[2022-03-04] MEDS ORDERED: OLAN2.5T3 MT (14:53)
[2022-03-04] MEDS ORDERED: OMEG1CAP46 PO (14:53)
[2022-03-04] MEDS ORDERED: ESOM20CA MT (14:53)
[2022-03-04 16:00] VITALS: BP 134/85
[2022-03-04 20:00] VITALS: BP 124/70
[2022-03-04] MEDS ORDERED: NALOXONE HCL 0.4MG/ML VIAL IV PRN (20:30)
[2022-03-04] MEDS ORDERED: THIAMINE HCL 100 MG in SODIUM CHLORIDE 0.9% 49 ML IV NR (22:00)
[2022-03-05] VITALS: BP 167/109
[2022-03-05 04:00] VITALS: BP 144/89
[2022-03-05] MEDS: SODIUM CHLORIDE 0.45% 1,000 ML IV SCH ×2 (06:19→21:18)
[2022-03-05 07:23] LABS: EOSINOPHILS % 6.3 % (0.0-5.0); HEMATOCRIT. 37.8 % (42.0-52.0); HEMOGLOBIN. 12.3 g/dL (14.0-18.0); LYMPHOCYTES % 36.6 % (20.0-50.0); MEAN CORPUSCULAR HEMOGLOBIN 29.8 pg (28.0-32.0); MEAN CORPUSCULAR VOLUME 91.5 fL (80.0-94.0); MONOCYTES % 6.5 % (2.0-8.0); NEUTROPHILS % 49.6 % (40.0-76.0); PLATELET 111 x1000/uL (130-400); RED BLOOD CELL COUNT 4.13 mill/uL (4.7-6.1); RED CELL DISTRIBUTION WIDTH 16.4 % (11.6-14.6)
[2022-03-05 08:00] VITALS: BP 147/93
[2022-03-05 08:59] LABS: CHLORIDE 112 mEq/L (98-107)
[2022-03-05] MEDS: ENOXAPARIN 30MG/0.3ML SYR SUBCUT SCH (09:43)
[2022-03-05 12:00] VITALS: BP 112/71
[2022-03-05 16:00] VITALS: BP 154/82
[2022-03-05] MEDS ORDERED: POTASSIUM CHLORIDE INJ 40 MEQ in DEXT 5% WATER 500 ML IV NR (16:00)
[2022-03-05 20:00] VITALS: BP 156/87
[2022-03-05] MEDS: MEMANTINE HCL 5MG TABLET PO SCH (21:18)
[2022-03-06] VITALS: BP 159/84
[2022-03-06] MEDS: SODIUM CHLORIDE 0.45% 1,000 ML IV SCH ×2 (02:50→09:26)
[2022-03-06 04:00] VITALS: BP 147/89
[2022-03-06 07:26] LABS: BASOPHILS % 0.7 % (0.0-2.0); EOSINOPHILS % 4.5 % (0.0-5.0); HEMATOCRIT. 36.3 % (42.0-52.0); LYMPHOCYTES % 46.2 % (20.0-50.0); MEAN CORPUSCULAR HEMOGLOBIN 29.9 pg (28.0-32.0); MEAN CORPUSCULAR VOLUME 90.6 fL (80.0-94.0); MEAN PLATELET VOLUME 9.5 fl (7.4-10.4); MONOCYTES % 7.8 % (2.0-8.0); NEUTROPHILS % 40.8 % (40.0-76.0); PLATELET 113 x1000/uL (130-400); RED BLOOD CELL COUNT 4.01 mill/uL (4.7-6.1); RED CELL DISTRIBUTION WIDTH 16.2 % (11.6-14.6)
[2022-03-06 08:00] VITALS: BP 160/98
[2022-03-06 08:18] LABS: CHLORIDE 108 mEq/L (98-107)
[2022-03-06 08:21] LABS: PHOSPHORUS 2.2 mg/dL (2.5-4.9)
[2022-03-06] MEDS: MEMANTINE HCL 5MG TABLET PO SCH ×2 (09:24→20:39)
[2022-03-06] MEDS: ENOXAPARIN 40MG/0.4ML SYR SUBCUT SCH (09:25)
[2022-03-06 12:00] VITALS: BP 146/86
[2022-03-06 12:18] LABS: VITAMIN B12 SERUM 219 pg/mL (211-911)
[2022-03-06 16:00] VITALS: BP 146/97
[2022-03-06 19:55] VITALS: BP 153/100
[2022-03-06] MEDS: CARVEDILOL 3.125 MG TABLET PO SCH (21:23)
[2022-03-07] VITALS (7 sets, daily range): BP systolic 103–155; BP diastolic 62–95
[2022-03-07 07:05] LABS: BASOPHILS % 0.7 % (0.0-2.0); EOSINOPHILS % 2.8 % (0.0-5.0); HEMATOCRIT. 36.7 % (42.0-52.0); HEMOGLOBIN. 12.3 g/dL (14.0-18.0); LYMPHOCYTES % 49.9 % (20.0-50.0); MEAN CORPUSCULAR VOLUME 89.6 fL (80.0-94.0); MONOCYTES % 8.2 % (2.0-8.0); NEUTROPHILS % 38.4 % (40.0-76.0); PLATELET 126 x1000/uL (130-400); RED CELL DISTRIBUTION WIDTH 16.2 % (11.6-14.6)
[2022-03-07 07:21] LABS: CHLORIDE 109 mEq/L (98-107)
[2022-03-07 07:33] LABS: PHOSPHORUS 2.5 mg/dL (2.5-4.9)
[2022-03-07] MEDS ORDERED: POTASSIUM CHLORIDE INJ 40 MEQ in DEXT 5% WATER 250 ML IV ONE (07:45)
[2022-03-07] MEDS: FISH OIL/OMEGA-3 FATTY ACIDS 1000MG CAPSULE PO SCH (08:42)
[2022-03-07] MEDS: ASPIRIN 325MG EC TABLET PO SCH (08:42)
[2022-03-07] MEDS: MEMANTINE HCL 5MG TABLET PO SCH ×2 (08:42→21:06)
[2022-03-07] MEDS: CARVEDILOL 3.125 MG TABLET PO SCH ×2 (08:42→20:54)
[2022-03-07] MEDS: ENOXAPARIN 40MG/0.4ML SYR SUBCUT SCH (08:43)
[2022-03-07] MEDS ORDERED: KCL 20MEQ/100ML PREMIX 100 ML IV SCH (09:00)
[2022-03-07] MEDS ORDERED: POTASSIUM CHLORIDE INJ 40 MEQ in SODIUM CHLORIDE 0.9% 500 ML IV SCH (10:00)
[2022-03-08] VITALS: BP 120/74
[2022-03-08 04:00] VITALS: BP 126/74
[2022-03-08 08:00] VITALS: BP 158/73
[2022-03-08] MEDS: CARVEDILOL 3.125 MG TABLET PO SCH ×2 (08:39→20:06)
[2022-03-08] MEDS: FISH OIL/OMEGA-3 FATTY ACIDS 1000MG CAPSULE PO SCH (08:39)
[2022-03-08] MEDS: ASPIRIN 325MG EC TABLET PO SCH (08:39)
[2022-03-08] MEDS: MEMANTINE HCL 5MG TABLET PO SCH ×2 (08:39→20:06)
[2022-03-08] MEDS: ENOXAPARIN 40MG/0.4ML SYR SUBCUT SCH (09:03)
[2022-03-08 12:00] VITALS: BP 120/74
[2022-03-08] MEDS: POTASSIUM CHLORIDE 20MEQ TABLET SR PO SCH (12:23)
[2022-03-08 16:22] VITALS: BP 121/76
[2022-03-08 19:49] VITALS: BP 143/82
[2022-03-08] MEDS ORDERED: POTA-204 PO (23:28)
[2022-03-08] MEDS ORDERED: MEMA5TAB7 PO (23:28)
[2022-03-09] VITALS: BP 115/67
[2022-03-09 04:00] VITALS: BP 155/86
[2022-03-09 08:00] VITALS: BP 161/89
[2022-03-09] MEDS: ENOXAPARIN 40MG/0.4ML SYR SUBCUT SCH (08:59)
[2022-03-09] MEDS: MEMANTINE HCL 5MG TABLET PO SCH (08:59)
[2022-03-09] MEDS: POTASSIUM CHLORIDE 20MEQ TABLET SR PO SCH (08:59)
[2022-03-09] MEDS: ASPIRIN 325MG EC TABLET PO SCH (09:00)
[2022-03-09] MEDS: CARVEDILOL 3.125 MG TABLET PO SCH (09:00)
[2022-03-09] MEDS: FISH OIL/OMEGA-3 FATTY ACIDS 1000MG CAPSULE PO SCH (09:00)
[2022-03-09 09:24] VITALS: BP 136/78
== END 2022-03-09 15:17 | disposition home health service (06) | DRG 640 ==
LOC: ER 17:32 → MICUSO 20:09 → EDBEDREQ 20:12 → EDBEDREQTM 20:12 → SUPCPDRO 21:00 → 6WST 03-04 10:17
PROVIDERS: ADMIT Internal Medicine; ATTEND Internal Medicine
PROC: 4A00X4Z Measurement of Central Nervous Electrical Activity, External Approach (ICD-10-PCS; principal; 2022-03-05)
DX: E87.0 Hyperosmolality and hypernatremia (principal); G93.41 Metabolic encephalopathy; E87.2 Acidosis; R62.7 Adult failure to thrive; E87.6 Hypokalemia; E78.5 Hyperlipidemia, unspecified; I10 Essential (primary) hypertension; F32.A Depression, unspecified; R79.89 Other specified abnormal findings of blood chemistry; R53.1 Weakness; Z74.01 Bed confinement status; Z86.73 Personal history of transient ischemic attack (TIA), and cerebral infarction without residual deficits; E78.00 Pure hypercholesterolemia, unspecified; Z79.899 Other long term (current) drug therapy; Z68.29 Body mass index [BMI] 29.0-29.9, adult; Z79.84 Long term (current) use of oral hypoglycemic drugs
CPT/HCPCS: 36415; 70551; 71045; 80048; 80053; 81003; 82607; 83605; 83735; 83880; 84100; 84145; 84439; 84443; 84484; 85025; 92610; 93005; 93306; 95816; 97162; 97165; 99291; A6261; J1650; J2405; J2543; J3370; J3411; J3480; J7030; J7040; J7060; A4315

== ENCOUNTER 2022-04-09 08:49 | Inpatient (IN) | payer MEDICARE, MEDICAID ==
[~2022-04-09] VITALS: Ht 167.6 cm; Wt 82.6 kg
[~2022-04-09 08:49] MED LIST changes: +ESOM20CA MT; +MEMA5TAB7 PO; +OLAN2.5T3 MT; +OMEG1CAP46 PO; +POTA-204 PO
[2022-04-09] MEDS ORDERED: SODIUM CHLORIDE 0.9% 1,000 ML IV ONE (09:15)
[2022-04-09 09:31] LABS: EOSINOPHILS % 3.4 % (0.0-5.0); HEMATOCRIT. 41.4 % (42.0-52.0); HEMOGLOBIN. 13.7 g/dL (14.0-18.0); LYMPHOCYTES % 59.3 % (20.0-50.0); MEAN CORPUSCULAR HEMOGLOBIN 29.7 pg (28.0-32.0); MEAN CORPUSCULAR VOLUME 89.6 fL (80.0-94.0); MEAN PLATELET VOLUME 9.4 fl (7.4-10.4); MONOCYTES % 6.1 % (2.0-8.0); NEUTROPHILS % 30.2 % (40.0-76.0); PLATELET 123 x1000/uL (130-400); RED BLOOD CELL COUNT 4.62 mill/uL (4.7-6.1); RED CELL DISTRIBUTION WIDTH 15.1 % (11.6-14.6)
[2022-04-09 09:37] LABS: CHLORIDE 112 mEq/L (98-107)
[2022-04-09 09:43] LABS: INR 1.1; PROTHROMBIN TIME 11.8 sec (9.6-11.0)
[2022-04-09 16:00] VITALS: BP 157/101
[2022-04-09] MEDS ORDERED: ONDANSETRON HCL 4MG/2ML INJ IV PRN (17:15)
[2022-04-09] MEDS ORDERED: DIPHENHYDRAMINE 50MG/ML VIAL IV PRN (17:15)
[2022-04-09] MEDS ORDERED: DEXTROSE 50% WATER 50ML SYRINGE IV PRN (17:15)
[2022-04-09] MEDS ORDERED: POTASSIUM CHLORIDE 20MEQ/PACKET PO NR (17:15)
[2022-04-09] MEDS ORDERED: ZOLPIDEM TARTRATE 5MG TABLET PO PRN (17:15)
[2022-04-09] MEDS ORDERED: ACETAMINOPHEN 325MG TABLET PO PRN ×2 (17:15)
[2022-04-09] MEDS ORDERED: MAGNESIUM/ALUMINUM HYDROXIDE/SIMETHICONE 30ML UDC PO PRN (17:15)
[2022-04-09] MEDS: INSULIN LISPRO 100 UNITS/ML SUBCUT SCH ×2 (17:40→21:00)
[2022-04-09 18:24] LABS: VITAMIN B12 SERUM 464 pg/mL (211-911)
[2022-04-09] MEDS ORDERED: MVI, ADULT NO.1 10 ML, FOLIC ACID 1 MG, THIAMINE HCL 100 MG in SODIUM CHLORIDE 0.9% 1,0... IV SCH ×4 (18:30)
[2022-04-09 20:00] VITALS: BP 165/100
[2022-04-09] MEDS ORDERED: POTASSIUM CHLORIDE INJ 40 MEQ in DEXT 5% WATER 250 ML IV ONE (20:00)
[2022-04-09] MEDS: CARVEDILOL 3.125 MG TABLET PO SCH (20:35)
[2022-04-09] MEDS: MEMANTINE HCL 5MG TABLET PO SCH (20:36)
[2022-04-09] MEDS: KCL 20MEQ/100ML X 2 FOR TOTAL KCL 40MEQ/200ML IV SCH ×2 (21:20→23:00)
[2022-04-09] MEDS: BLOOD SUGAR DIAGNOSTIC STRIP TEST SCH (21:47)
[2022-04-09] MEDS: SODIUM CHLORIDE 0.9% INJ 3ML FLUSH IVF SCH (21:48)
[2022-04-10] VITALS: BP 155/95
[2022-04-10 04:00] VITALS: BP 150/89
[2022-04-10] MEDS: BLOOD SUGAR DIAGNOSTIC STRIP TEST SCH ×4 (05:47→20:14)
[2022-04-10] MEDS: INSULIN LISPRO 100 UNITS/ML SUBCUT SCH ×4 (05:48→20:14)
[2022-04-10] MEDS: SODIUM CHLORIDE 0.9% INJ 3ML FLUSH IVF SCH ×3 (05:48→22:00)
[2022-04-10 08:00] VITALS: BP 166/87
[2022-04-10] MEDS: MEMANTINE HCL 5MG TABLET PO SCH ×2 (10:23→20:34)
[2022-04-10] MEDS: CARVEDILOL 3.125 MG TABLET PO SCH ×2 (10:23→20:34)
[2022-04-10] MEDS: FISH OIL/OMEGA-3 FATTY ACIDS 1000MG CAPSULE PO SCH (10:23)
[2022-04-10 12:00] VITALS: BP 163/107
[2022-04-10] MEDS: HYDRALAZINE 20MG/ML VIAL IV PRN (14:12)
[2022-04-10] MEDS ORDERED: VANCOMYCIN 1,500 MG in DEXT 5% WATER 250 ML IV SCH (15:00)
[2022-04-10 16:00] VITALS: BP 124/91
[2022-04-10 20:00] VITALS: BP 114/74
[2022-04-11] VITALS: BP 120/80
[2022-04-11 04:00] VITALS: BP 117/84
[2022-04-11] MEDS: SODIUM CHLORIDE 0.9% INJ 3ML FLUSH IVF SCH ×3 (05:14→21:08)
[2022-04-11] MEDS: BLOOD SUGAR DIAGNOSTIC STRIP TEST SCH ×4 (05:36→21:07)
[2022-04-11] MEDS: INSULIN LISPRO 100 UNITS/ML SUBCUT SCH ×4 (05:36→21:00)
[2022-04-11] MEDS ORDERED: VANCOMYCIN 750MG PREMIX 150 ML IV SCH ×2 (06:00→21:00)
[2022-04-11 07:52] LABS: BASOPHILS % 0.6 % (0.0-2.0); EOSINOPHILS % 0.1 % (0.0-5.0); HEMATOCRIT. 43.4 % (42.0-52.0); HEMOGLOBIN. 14.4 g/dL (14.0-18.0); MEAN CORPUSCULAR HEMOGLOBIN 29.6 pg (28.0-32.0); MEAN CORPUSCULAR VOLUME 89.2 fL (80.0-94.0); MEAN PLATELET VOLUME 10.2 fl (7.4-10.4); MONOCYTES % 5.1 % (2.0-8.0); NEUTROPHILS % 81.2 % (40.0-76.0); PLATELET 133 x1000/uL (130-400); RED BLOOD CELL COUNT 4.87 mill/uL (4.7-6.1)
[2022-04-11 08:00] VITALS: BP 136/91
[2022-04-11] MEDS: CARVEDILOL 3.125 MG TABLET PO SCH ×2 (08:28→21:00)
[2022-04-11] MEDS: MEMANTINE HCL 5MG TABLET PO SCH ×2 (08:28→21:06)
[2022-04-11] MEDS: FISH OIL/OMEGA-3 FATTY ACIDS 1000MG CAPSULE PO SCH (08:28)
[2022-04-11] MEDS: PANTOPRAZOLE SODIUM 40 MG/VIAL IV SCH ×2 (08:28→21:06)
[2022-04-11] MEDS: SODIUM CHLORIDE 0.9% 1,000 ML IV SCH ×3 (08:29→21:08)
[2022-04-11 10:23] LABS: CHLORIDE 107 mEq/L (98-107)
[2022-04-11] MEDS ORDERED: POTASSIUM CHLORIDE INJ 40 MEQ in DEXT 5% WATER 250 ML IV ONE (11:15)
[2022-04-11 12:00] VITALS: BP 130/92
[2022-04-11] MEDS: KCL 20MEQ/100ML X 2 FOR TOTAL KCL 40MEQ/200ML IV SCH ×2 (13:15→14:56)
[2022-04-11] MEDS ORDERED: SODIUM CHLORIDE 0.9% 500 ML IV ONE (15:00)
[2022-04-11 16:00] VITALS: BP 114/94
[2022-04-11 16:29] LABS: FERRITIN 361 ng/mL (22-322)
[2022-04-11] MEDS ORDERED: MINERAL OIL ENEMA 133ML PR NR ×2 (17:30→21:00)
[2022-04-11 20:00] VITALS: BP 106/66
[2022-04-11] MEDS ORDERED: BISACODYL 10MG SUPP PR NR (21:00)
[2022-04-12] VITALS: BP 105/68
[2022-04-12 04:00] VITALS: BP_SYST 106; BP_SYST 136; BP_DIAS 63; BP_DIAS 76
[2022-04-12] MEDS: BLOOD SUGAR DIAGNOSTIC STRIP TEST SCH ×3 (05:35→20:41)
[2022-04-12] MEDS: INSULIN LISPRO 100 UNITS/ML SUBCUT SCH ×3 (05:35→20:41)
[2022-04-12] MEDS: SODIUM CHLORIDE 0.9% INJ 3ML FLUSH IVF SCH ×3 (05:37→20:43)
[2022-04-12 08:00] VITALS: BP 136/98
[2022-04-12] MEDS: SODIUM CHLORIDE 0.9% 1,000 ML IV SCH ×2 (08:24→12:17)
[2022-04-12] MEDS: BISACODYL 10MG SUPP PR SCH ×2 (10:45→12:56)
[2022-04-12] MEDS: PANTOPRAZOLE SODIUM 40 MG/VIAL IV SCH ×2 (10:47→20:42)
[2022-04-12] MEDS: BISACODYL 10MG SUPP PR PRN (11:33)
[2022-04-12 12:00] VITALS: BP 140/102
[2022-04-12 12:07] LABS: BG BASE EXCESS -7.6 mmol/L (-2.0-2.0); BG CARBOXYHEMOGLOBIN 0.4 % (0.5-1.5); BG DEOXYHEMOGLOBIN 4.1 % (0.0-5.0); BG FRACTION INSPIRED OXYGEN 21; BG HCO3 ACT 17.2 mmol/L (22.0-26.0); BG METHEMOGLOBIN 0.2 % (0.0-1.5); BG OXYGEN SATURATION 95.9 % (92.0-98.5); BG OXYHEMOGLOBIN 95.3 % (94.0-97.0); BG PCO2 32.9 mmHg (35.0-45.0); BG PH 7.336 (7.350-7.450); BG PO2 83.1 mmHg (75.0-100.0); BG SAMPLE SITE RIGHT RADIAL; BG VENT MODE ROOM AIR
[2022-04-12] MEDS: IRON SUCROSE COMPLEX 100 MG/5 ML ML IV SCH (12:14)
[2022-04-12] MEDS: CARVEDILOL 3.125 MG TABLET PO SCH ×2 (12:15→20:43)
[2022-04-12] MEDS ORDERED: SORBITOL 70% SOLN 30ML PO SCH (12:15)
[2022-04-12] MEDS: MEMANTINE HCL 5MG TABLET PO SCH ×2 (12:15→20:43)
[2022-04-12] MEDS ORDERED: BISACODYL 5MG TABLET PO ONE (12:30)
[2022-04-12] MEDS: FISH OIL/OMEGA-3 FATTY ACIDS 1000MG CAPSULE PO SCH (12:30)
[2022-04-12 16:00] VITALS: BP 127/68
[2022-04-12 16:56] LABS: BASOPHILS % 0.2 % (0.0-2.0); EOSINOPHILS % 0.7 % (0.0-5.0); HEMATOCRIT. 40.6 % (42.0-52.0); HEMOGLOBIN. 13.3 g/dL (14.0-18.0); LYMPHOCYTES % 17.5 % (20.0-50.0); MEAN CORPUSCULAR HEMOGLOBIN 29.4 pg (28.0-32.0); MEAN CORPUSCULAR VOLUME 89.8 fL (80.0-94.0); MEAN PLATELET VOLUME 10.2 fl (7.4-10.4); NEUTROPHILS % 73.6 % (40.0-76.0); PLATELET 101 x1000/uL (130-400); RED BLOOD CELL COUNT 4.52 mill/uL (4.7-6.1); RED CELL DISTRIBUTION WIDTH 15.6 % (11.6-14.6)
[2022-04-12 20:00] VITALS: BP 139/80
[2022-04-12] MEDS: SENNOSIDES/DOCUSATE SOD 8.6/50MG TABLET PO SCH (20:43)
[2022-04-13] VITALS (7 sets, daily range): BP systolic 107–180; BP diastolic 68–112
[2022-04-13] MEDS: SODIUM CHLORIDE 0.9% 1,000 ML IV SCH ×2 (00:17→10:09)
[2022-04-13] MEDS: SODIUM CHLORIDE 0.9% INJ 3ML FLUSH IVF SCH ×3 (05:45→21:58)
[2022-04-13] MEDS: BLOOD SUGAR DIAGNOSTIC STRIP TEST SCH ×3 (05:57→21:59)
[2022-04-13] MEDS: INSULIN LISPRO 100 UNITS/ML SUBCUT SCH ×3 (05:57→21:00)
[2022-04-13 06:42] LABS: BASOPHILS % 0.3 % (0.0-2.0); EOSINOPHILS % 2.5 % (0.0-5.0); HEMATOCRIT. 37.8 % (42.0-52.0); HEMOGLOBIN. 12.4 g/dL (14.0-18.0); LYMPHOCYTES % 16.1 % (20.0-50.0); MEAN CORPUSCULAR HEMOGLOBIN 29.5 pg (28.0-32.0); MEAN PLATELET VOLUME 10.3 fl (7.4-10.4); MONOCYTES % 6.9 % (2.0-8.0); NEUTROPHILS % 74.2 % (40.0-76.0); PLATELET 100 x1000/uL (130-400); RED CELL DISTRIBUTION WIDTH 15.8 % (11.6-14.6)
[2022-04-13] MEDS: POLYETHYLENE GLYCOL 3350 (17GM) 1 DOSE PACK PO SCH (09:00)
[2022-04-13] MEDS: PANTOPRAZOLE SODIUM 40 MG/VIAL IV SCH ×2 (10:09→21:57)
[2022-04-13] MEDS: BISACODYL 10MG SUPP PR PRN (10:09)
[2022-04-13] MEDS: BACITRACIN 15GM TUBE TOP SCH (10:10)
[2022-04-13] MEDS: MEMANTINE HCL 5MG TABLET PO SCH ×2 (10:10→21:58)
[2022-04-13] MEDS: FISH OIL/OMEGA-3 FATTY ACIDS 1000MG CAPSULE PO SCH (10:10)
[2022-04-13] MEDS: CARVEDILOL 3.125 MG TABLET PO SCH ×2 (10:11→21:57)
[2022-04-13] MEDS: IRON SUCROSE COMPLEX 100 MG/5 ML ML IV SCH (10:16)
[2022-04-13] MEDS: BISACODYL 5MG TABLET PO SCH (10:16)
[2022-04-13] MEDS: CLONIDINE 0.1MG TABLET PO PRN (13:13)
[2022-04-13] MEDS: HYDRALAZINE 20MG/ML VIAL IV PRN (14:40)
[2022-04-13 15:47] LABS: CLARITY URINE CLEAR (CLEAR); COLOR URINE YELLOW (YELLOW)
[2022-04-13 15:48] LABS: PROTEIN URINE TRACE (NEGATIVE)
[2022-04-13 15:49] LABS: KETONES URINE TRACE (NEGATIVE); LEUKOCYTE ESTERASE URINE NEGATIVE (NEGATIVE); NITRITE URINE NEGATIVE (NEGATIVE); OCCULT BLOOD URINE NEGATIVE (NEGATIVE); UROBILINOGEN URINE 0.2 E.U./dL (0.2-1.0)
[2022-04-13] MEDS: SENNOSIDES/DOCUSATE SOD 8.6/50MG TABLET PO SCH (21:58)
[2022-04-14] VITALS: BP 121/66
[2022-04-14] MEDS: SODIUM CHLORIDE 0.9% 1,000 ML IV SCH ×3 (00:11→17:00)
[2022-04-14 04:00] VITALS: BP 121/54
[2022-04-14] MEDS: SODIUM CHLORIDE 0.9% INJ 3ML FLUSH IVF SCH ×3 (05:29→21:51)
[2022-04-14] MEDS: INSULIN LISPRO 100 UNITS/ML SUBCUT SCH ×4 (05:29→21:00)
[2022-04-14] MEDS: BLOOD SUGAR DIAGNOSTIC STRIP TEST SCH ×4 (05:29→21:00)
[2022-04-14 07:33] LABS: BASOPHILS % 0.6 % (0.0-2.0); EOSINOPHILS % 5.2 % (0.0-5.0); HEMATOCRIT. 36.1 % (42.0-52.0); HEMOGLOBIN. 11.8 g/dL (14.0-18.0); LYMPHOCYTES % 21.7 % (20.0-50.0); MEAN CORPUSCULAR HEMOGLOBIN 29.6 pg (28.0-32.0); MEAN CORPUSCULAR VOLUME 90.4 fL (80.0-94.0); MEAN PLATELET VOLUME 10.2 fl (7.4-10.4); MONOCYTES % 7.5 % (2.0-8.0); PLATELET 90 x1000/uL (130-400); RED CELL DISTRIBUTION WIDTH 15.7 % (11.6-14.6)
[2022-04-14 07:45] LABS: CHLORIDE 115 mEq/L (98-107)
[2022-04-14 08:00] VITALS: BP 148/83
[2022-04-14] MEDS: MEMANTINE HCL 5MG TABLET PO SCH ×2 (09:23→21:50)
[2022-04-14] MEDS: FISH OIL/OMEGA-3 FATTY ACIDS 1000MG CAPSULE PO SCH (09:23)
[2022-04-14] MEDS: PANTOPRAZOLE SODIUM 40 MG/VIAL IV SCH ×2 (09:23→21:50)
[2022-04-14] MEDS: CARVEDILOL 3.125 MG TABLET PO SCH ×2 (09:24→21:50)
[2022-04-14] MEDS: BACITRACIN 15GM TUBE TOP SCH (09:25)
[2022-04-14] MEDS: BISACODYL 5MG TABLET PO SCH (09:28)
[2022-04-14] MEDS: POLYETHYLENE GLYCOL 3350 (17GM) 1 DOSE PACK PO SCH (09:30)
[2022-04-14 12:00] VITALS: BP 157/78
[2022-04-14] MEDS: IRON SUCROSE COMPLEX 100 MG/5 ML ML IV SCH (13:27)
[2022-04-14 16:00] VITALS: BP 176/105
[2022-04-14] MEDS: CLONIDINE 0.1MG TABLET PO PRN (18:25)
[2022-04-14 20:00] VITALS: BP 141/83
[2022-04-14] MEDS: SENNOSIDES/DOCUSATE SOD 8.6/50MG TABLET PO SCH (21:50)
[2022-04-15] VITALS: BP 129/78
[2022-04-15] MEDS: SODIUM CHLORIDE 0.9% 1,000 ML IV SCH ×3 (01:16→17:47)
[2022-04-15 04:00] VITALS: BP 124/70
[2022-04-15 05:48] LABS: BASOPHILS % 0.6 % (0.0-2.0); EOSINOPHILS % 3.4 % (0.0-5.0); HEMATOCRIT. 34.7 % (42.0-52.0); HEMOGLOBIN. 11.6 g/dL (14.0-18.0); MEAN CORPUSCULAR HEMOGLOBIN 29.6 pg (28.0-32.0); MEAN CORPUSCULAR VOLUME 88.6 fL (80.0-94.0); MEAN PLATELET VOLUME 9.7 fl (7.4-10.4); MONOCYTES % 11.1 % (2.0-8.0); NEUTROPHILS % 58.9 % (40.0-76.0); PLATELET 105 x1000/uL (130-400); RED BLOOD CELL COUNT 3.91 mill/uL (4.7-6.1); RED CELL DISTRIBUTION WIDTH 15.4 % (11.6-14.6)
[2022-04-15] MEDS: INSULIN LISPRO 100 UNITS/ML SUBCUT SCH ×3 (06:10→17:40)
[2022-04-15] MEDS: BLOOD SUGAR DIAGNOSTIC STRIP TEST SCH ×3 (06:10→17:47)
[2022-04-15] MEDS: SODIUM CHLORIDE 0.9% INJ 3ML FLUSH IVF SCH ×2 (06:22→14:00)
[2022-04-15 07:45] LABS: CHLORIDE 113 mEq/L (98-107)
[2022-04-15 08:00] VITALS: BP 161/87
[2022-04-15] MEDS: PANTOPRAZOLE SODIUM 40 MG/VIAL IV SCH (09:15)
[2022-04-15] MEDS: CARVEDILOL 3.125 MG TABLET PO SCH (09:16)
[2022-04-15] MEDS: FISH OIL/OMEGA-3 FATTY ACIDS 1000MG CAPSULE PO SCH (09:16)
[2022-04-15] MEDS: MEMANTINE HCL 5MG TABLET PO SCH (09:16)
[2022-04-15] MEDS: BISACODYL 5MG TABLET PO SCH (09:16)
[2022-04-15] MEDS: BACITRACIN 15GM TUBE TOP SCH (09:17)
[2022-04-15] MEDS: POLYETHYLENE GLYCOL 3350 (17GM) 1 DOSE PACK PO SCH (09:17)
[2022-04-15 12:00] VITALS: BP 121/85
[2022-04-15] MEDS: IRON SUCROSE COMPLEX 100 MG/5 ML ML IV SCH (12:56)
[2022-04-15 16:00] VITALS: BP 114/80
[2022-04-15 16:32] VITALS: BP 114/90
== END 2022-04-15 18:10 | disposition home or self-care (01) | DRG 871 ==
LOC: ER 08:49 → 8WST 11:43
PROVIDERS: ADMIT Internal Medicine; ATTEND Internal Medicine
DX: A41.9 Sepsis, unspecified organism (principal); G93.41 Metabolic encephalopathy; N17.9 Acute kidney failure, unspecified; Z20.822 Contact with and (suspected) exposure to COVID-19; I10 Essential (primary) hypertension; R62.7 Adult failure to thrive; D69.6 Thrombocytopenia, unspecified; E78.00 Pure hypercholesterolemia, unspecified; F03.90 Unspecified dementia, unspecified severity, without behavioral disturbance, psychotic disturbance, mood disturbance, and anxiety; F32.A Depression, unspecified; K59.09 Other constipation; E78.5 Hyperlipidemia, unspecified; N32.0 Bladder-neck obstruction; E11.42 Type 2 diabetes mellitus with diabetic polyneuropathy; E87.6 Hypokalemia; H54.62 Unqualified visual loss, left eye, normal vision right eye; K44.9 Diaphragmatic hernia without obstruction or gangrene; Z68.29 Body mass index [BMI] 29.0-29.9, adult; Z87.891 Personal history of nicotine dependence; Z86.73 Personal history of transient ischemic attack (TIA), and cerebral infarction without residual deficits; Z79.899 Other long term (current) drug therapy; Z95.828 Presence of other vascular implants and grafts
CPT/HCPCS: 36415; 36600; 71045; 74176; 80048; 80053; 80202; 80307; 80329; 81003; 82140; 82375; 82607; 82728; 82746; 82805; 82962; 83036; 83540; 83550; 83605; 83735; 84145; 84443; 84484; 85025; 85044; 86850; 86900; 87426; 92610; 93005; 93923; 99285; A6261; C9113; C9803; J0360; J2405; J3370; J3411; J3480; J3490; J7030; J7060; A4315

== ENCOUNTER 2022-06-23 12:25 | Inpatient (IN) | payer MEDICARE, MEDICAID ==
[~2022-06-23] VITALS: Ht 182.9 cm; Wt 78.0 kg
[2022-06-23] MEDS ORDERED: SODIUM CHLORIDE 0.9% 1,000 ML IV ONE (12:45)
[2022-06-23 13:23] LABS: BASOPHILS % 1.4 % (0.0-2.0); EOSINOPHILS % 2.1 % (0.0-5.0); HEMATOCRIT. 40.4 % (42.0-52.0); HEMOGLOBIN. 13.3 g/dL (14.0-18.0); LYMPHOCYTES % 42.7 % (20.0-50.0); MEAN CORPUSCULAR HEMOGLOBIN 28.9 pg (28.0-32.0); MEAN CORPUSCULAR VOLUME 87.8 fL (80.0-94.0); MEAN PLATELET VOLUME 8.7 fl (7.4-10.4); MONOCYTES % 7.1 % (2.0-8.0); NEUTROPHILS % 46.7 % (40.0-76.0); PLATELET 201 x1000/uL (130-400); RED CELL DISTRIBUTION WIDTH 15.4 % (11.6-14.6)
[2022-06-23 13:31] LABS: CHLORIDE 106 mEq/L (98-107)
[2022-06-23] MEDS ORDERED: SODIUM CHLORIDE 0.9% 1000ML BAG (SEPSIS BOLUS) IV ONE (14:15)
[2022-06-23] MEDS ORDERED: VANCOMYCIN 1G PREMIX 200 ML IV ONE (14:15)
[2022-06-23] MEDS ORDERED: PIPERACILLIN/TAZ 3.375G PREMIX 50 ML IV ONE (14:15)
[2022-06-23 14:47] LABS: CLARITY URINE CLOUDY (CLEAR); COLOR URINE DARK YELLOW (YELLOW); KETONES URINE TRACE (NEGATIVE); LEUKOCYTE ESTERASE URINE 2+ (NEGATIVE); NITRITE URINE POSITIVE (NEGATIVE); OCCULT BLOOD URINE 3+ (NEGATIVE); PH URINE 5.5 (4.5-8.0); PROTEIN URINE 3+ (NEGATIVE); SPECIFIC GRAVITY URINE 1.022 (1.005-1.030)
[2022-06-23] MEDS: INSULIN LISPRO 100 UNITS/ML SUBCUT SCH ×2 (17:00→21:00)
[2022-06-23] MEDS ORDERED: CLONIDINE 0.1MG TABLET PO PRN (17:00)
[2022-06-23] MEDS ORDERED: ONDANSETRON HCL 4MG/2ML INJ IV PRN (17:00)
[2022-06-23] MEDS ORDERED: GUAIFENESIN 200MG/10ML SUGAR FREE UDC PO PRN (17:00)
[2022-06-23] MEDS ORDERED: HYDROCODONE/ACETAMINOPHEN 5/325MG TABLET PO PRN (17:00)
[2022-06-23] MEDS ORDERED: DEXTROSE 50% WATER 50ML SYRINGE IV PRN (17:00)
[2022-06-23] MEDS: SODIUM CHLORIDE 0.9% 1,000 ML IV SCH (17:00)
[2022-06-23] MEDS ORDERED: DOCUSATE SODIUM 100MG CAPSULE PO PRN (17:00)
[2022-06-23] MEDS ORDERED: ACETAMINOPHEN 325MG TABLET PO PRN ×2 (17:00)
[2022-06-23] MEDS ORDERED: NA PHOS,M-B/NA PHOS,DI-BA ENEMA 118ML PR PRN (17:00)
[2022-06-23 17:25] VITALS: BP 170/97
[2022-06-23] MEDS: ASPIRIN 81MG TABLET PO SCH (17:30)
[2022-06-23] MEDS ORDERED: VANCOMYCIN 500MG PREMIX 100 ML IV NR (18:00)
[2022-06-23 18:46] LABS: INR 1.1; PROTHROMBIN TIME 11.8 sec (9.6-11.0)
[2022-06-23 18:55] LABS: T4 FREE 1.21 ng/dL (0.76-1.46)
[2022-06-23] MEDS: FAMOTIDINE 20MG/2ML VIAL IV SCH (19:17)
[2022-06-23 19:23] LABS: VITAMIN B12 SERUM 461 pg/mL (211-911)
[2022-06-23 20:00] VITALS: BP 170/95
[2022-06-23] MEDS: ATORVASTATIN CALCIUM 20MG TABLET PO SCH (21:00)
[2022-06-23] MEDS ORDERED: ENOXAPARIN 40MG/0.4ML SYR SUBCUT SCH (21:00)
[2022-06-23] MEDS: BLOOD SUGAR DIAGNOSTIC STRIP TEST SCH (21:00)
[2022-06-23] MEDS: CARVEDILOL 3.125 MG TABLET PO SCH (21:00)
[2022-06-23] MEDS: PIPERACILLIN/TAZOBACTAM 3.375 G in DEXTROSE 5% WATER 50 ML IV SCH (21:28)
[2022-06-23] MEDS: HYDRALAZINE 20MG/ML VIAL IV SCH (21:47)
[2022-06-24] VITALS: BP 142/93
[2022-06-24 04:00] VITALS: BP 153/65
[2022-06-24] MEDS: PIPERACILLIN/TAZOBACTAM 3.375 G in DEXTROSE 5% WATER 50 ML IV SCH ×3 (05:15→21:53)
[2022-06-24] MEDS: SODIUM CHLORIDE 0.9% 1,000 ML IV SCH (05:16)
[2022-06-24] MEDS: HYDRALAZINE 20MG/ML VIAL IV SCH ×4 (05:16→21:28)
[2022-06-24] MEDS: INSULIN LISPRO 100 UNITS/ML SUBCUT SCH ×4 (05:44→21:00)
[2022-06-24] MEDS: BLOOD SUGAR DIAGNOSTIC STRIP TEST SCH ×4 (05:44→21:28)
[2022-06-24] MEDS ORDERED: VANCOMYCIN 750MG PREMIX 150 ML IV SCH (06:00)
[2022-06-24 08:00] VITALS: BP 146/96
[2022-06-24] MEDS: CARVEDILOL 3.125 MG TABLET PO SCH ×2 (09:00→21:00)
[2022-06-24] MEDS: ASPIRIN 81MG TABLET PO SCH (09:00)
[2022-06-24] MEDS: FAMOTIDINE 20MG/2ML VIAL IV SCH (09:16)
[2022-06-24 10:33] LABS: EOSINOPHILS % 2.4 % (0.0-5.0); HEMATOCRIT. 39.3 % (42.0-52.0); HEMOGLOBIN. 12.7 g/dL (14.0-18.0); MEAN CORPUSCULAR HEMOGLOBIN 28.8 pg (28.0-32.0); MEAN CORPUSCULAR VOLUME 89.3 fL (80.0-94.0); MEAN PLATELET VOLUME 9.2 fl (7.4-10.4); MONOCYTES % 8.3 % (2.0-8.0); NEUTROPHILS % 69.3 % (40.0-76.0); PLATELET 147 x1000/uL (130-400); RED CELL DISTRIBUTION WIDTH 15.5 % (11.6-14.6)
[2022-06-24 10:40] LABS: CHLORIDE 112 mEq/L (98-107)
[2022-06-24 12:13] VITALS: BP 135/80
[2022-06-24] MEDS: DEXTROSE 5% WATER 1,000 ML IV SCH ×2 (12:55→21:53)
[2022-06-24] MEDS ORDERED: KCL 20MEQ/100ML PREMIX 100 ML IV SCH (13:30)
[2022-06-24] MEDS ORDERED: NALOXONE HCL 0.4MG/ML VIAL IV PRN (13:30)
[2022-06-24 16:00] VITALS: BP 143/96
[2022-06-24] MEDS: ENOXAPARIN 80MG/0.8ML SYR SUBCUT SCH (17:13)
[2022-06-24 20:00] VITALS: BP 93/66
[2022-06-24] MEDS: ATORVASTATIN CALCIUM 20MG TABLET PO SCH (21:00)
[2022-06-25] VITALS: BP 106/80
[2022-06-25] MEDS: HYDRALAZINE 20MG/ML VIAL IV SCH (03:30)
[2022-06-25 04:00] VITALS: BP 116/87
[2022-06-25] MEDS: ENOXAPARIN 80MG/0.8ML SYR SUBCUT SCH ×2 (05:11→18:27)
[2022-06-25] MEDS: PIPERACILLIN/TAZOBACTAM 3.375 G in DEXTROSE 5% WATER 50 ML IV SCH ×3 (05:11→20:53)
[2022-06-25] MEDS: INSULIN LISPRO 100 UNITS/ML SUBCUT SCH ×4 (05:42→20:45)
[2022-06-25] MEDS: BLOOD SUGAR DIAGNOSTIC STRIP TEST SCH ×4 (05:42→20:44)
[2022-06-25 08:00] VITALS: BP 118/88
[2022-06-25] MEDS: CARVEDILOL 3.125 MG TABLET PO SCH ×2 (09:00→20:43)
[2022-06-25] MEDS: ASPIRIN 81MG TABLET PO SCH (09:00)
[2022-06-25] MEDS: FAMOTIDINE 20MG/2ML VIAL IV SCH (09:02)
[2022-06-25 10:04] LABS: BASOPHILS % 0.5 % (0.0-2.0); EOSINOPHILS % 2.7 % (0.0-5.0); HEMATOCRIT. 38.3 % (42.0-52.0); HEMOGLOBIN. 12.5 g/dL (14.0-18.0); LYMPHOCYTES % 36.3 % (20.0-50.0); MEAN CORPUSCULAR HEMOGLOBIN 28.6 pg (28.0-32.0); MEAN CORPUSCULAR VOLUME 88.1 fL (80.0-94.0); MONOCYTES % 8.6 % (2.0-8.0); NEUTROPHILS % 51.9 % (40.0-76.0); PLATELET 167 x1000/uL (130-400); RED BLOOD CELL COUNT 4.35 mill/uL (4.7-6.1); RED CELL DISTRIBUTION WIDTH 15.4 % (11.6-14.6)
[2022-06-25 10:32] LABS: CHLORIDE 108 mEq/L (98-107)
[2022-06-25] MEDS ORDERED: POTASSIUM CHLORIDE INJ 40 MEQ in DEXT 5% WATER 250 ML IV ONE (10:45)
[2022-06-25] MEDS ORDERED: HYDRALAZINE 20MG/ML VIAL IV PRN (10:45)
[2022-06-25 12:00] VITALS: BP 149/69
[2022-06-25] MEDS: KCL 20MEQ/100ML X 2 FOR TOTAL KCL 40MEQ/200ML IV SCH ×2 (13:29→15:47)
[2022-06-25 16:00] VITALS: BP 149/90
[2022-06-25] MEDS ORDERED: MAGNESIUM 1 G PREMIX 100 ML IV NR (17:00)
[2022-06-25] MEDS: DEXTROSE 5% WATER 1,000 ML IV SCH (19:47)
[2022-06-25 20:00] VITALS: BP 141/98
[2022-06-25] MEDS: ATORVASTATIN CALCIUM 20MG TABLET PO SCH (20:44)
[2022-06-26] VITALS: BP 147/89
[2022-06-26 04:00] VITALS: BP 150/82
[2022-06-26] MEDS: INSULIN LISPRO 100 UNITS/ML SUBCUT SCH ×4 (06:02→21:00)
[2022-06-26] MEDS: ENOXAPARIN 80MG/0.8ML SYR SUBCUT SCH ×2 (06:02→17:14)
[2022-06-26] MEDS: PIPERACILLIN/TAZOBACTAM 3.375 G in DEXTROSE 5% WATER 50 ML IV SCH ×3 (06:02→21:38)
[2022-06-26] MEDS: BLOOD SUGAR DIAGNOSTIC STRIP TEST SCH ×4 (06:02→21:38)
[2022-06-26 06:48] LABS: BASOPHILS % 0.1 % (0.0-2.0); EOSINOPHILS % 2.8 % (0.0-5.0); HEMATOCRIT. 37.7 % (42.0-52.0); HEMOGLOBIN. 12.5 g/dL (14.0-18.0); LYMPHOCYTES % 30.3 % (20.0-50.0); MEAN CORPUSCULAR HEMOGLOBIN 28.7 pg (28.0-32.0); MEAN CORPUSCULAR VOLUME 86.8 fL (80.0-94.0); MEAN PLATELET VOLUME 9.9 fl (7.4-10.4); MONOCYTES % 9.3 % (2.0-8.0); NEUTROPHILS % 57.5 % (40.0-76.0); PLATELET 163 x1000/uL (130-400); RED BLOOD CELL COUNT 4.35 mill/uL (4.7-6.1)
[2022-06-26 06:58] LABS: CHLORIDE 104 mEq/L (98-107)
[2022-06-26 08:00] VITALS: BP 160/101
[2022-06-26] MEDS: CARVEDILOL 3.125 MG TABLET PO SCH ×2 (09:00→21:00)
[2022-06-26] MEDS: ASPIRIN 81MG TABLET PO SCH (09:00)
[2022-06-26] MEDS: DEXTROSE 5% WATER 1,000 ML IV SCH ×2 (09:01→21:39)
[2022-06-26] MEDS: FAMOTIDINE 20MG/2ML VIAL IV SCH (09:04)
[2022-06-26 12:00] VITALS: BP 156/96
[2022-06-26] MEDS ORDERED: POTASSIUM CHLORIDE INJ 40 MEQ in DEXT 5% WATER 250 ML IV SCH (13:00)
[2022-06-26] MEDS: KCL 20MEQ/100ML X 2 FOR TOTAL KCL 40MEQ/200ML IV SCH ×2 (15:08→17:15)
[2022-06-26] MEDS: VANCOMYCIN 750MG PREMIX 150 ML IV SCH (15:47)
[2022-06-26 16:00] VITALS: BP 153/99
[2022-06-26] MEDS: PANTOPRAZOLE SODIUM 40 MG/VIAL IV SCH (17:14)
[2022-06-26 17:36] LABS: TOTAL IRON BINDING CAPACITY 201 ug/dL (250-450)
[2022-06-26 19:51] LABS: VITAMIN B12 SERUM 886 pg/mL (211-911)
[2022-06-26 20:00] VITALS: BP 146/98
[2022-06-26] MEDS: ATORVASTATIN CALCIUM 20MG TABLET PO SCH (21:00)
[2022-06-27 00:07] VITALS: BP 131/99
[2022-06-27 04:00] VITALS: BP 138/96
[2022-06-27] MEDS: VANCOMYCIN 750MG PREMIX 150 ML IV SCH (05:26)
[2022-06-27] MEDS: ENOXAPARIN 80MG/0.8ML SYR SUBCUT SCH (05:30)
[2022-06-27] MEDS: BLOOD SUGAR DIAGNOSTIC STRIP TEST SCH ×4 (06:13→21:00)
[2022-06-27] MEDS: INSULIN LISPRO 100 UNITS/ML SUBCUT SCH ×4 (06:13→21:00)
[2022-06-27] MEDS: PIPERACILLIN/TAZOBACTAM 3.375 G in DEXTROSE 5% WATER 50 ML IV SCH ×3 (06:49→20:50)
[2022-06-27 08:00] VITALS: BP 137/92
[2022-06-27] MEDS: CARVEDILOL 3.125 MG TABLET PO SCH ×2 (09:00→20:50)
[2022-06-27] MEDS: PANTOPRAZOLE SODIUM 40 MG/VIAL IV SCH (09:04)
[2022-06-27] MEDS: DEXTROSE 5% WATER 1,000 ML IV SCH ×2 (10:29→23:30)
[2022-06-27 12:00] VITALS: BP 103/76
[2022-06-27 15:06] LABS: FERRITIN 402 ng/mL (22-322)
[2022-06-27 16:00] VITALS: BP 151/89
[2022-06-27 16:03] LABS: BASOPHILS % 1.1 % (0.0-2.0); EOSINOPHILS % 2.8 % (0.0-5.0); HEMATOCRIT. 39.7 % (42.0-52.0); HEMOGLOBIN. 13.1 g/dL (14.0-18.0); LYMPHOCYTES % 32.2 % (20.0-50.0); MEAN CORPUSCULAR HEMOGLOBIN 28.6 pg (28.0-32.0); MEAN CORPUSCULAR VOLUME 86.5 fL (80.0-94.0); NEUTROPHILS % 51.9 % (40.0-76.0); PLATELET 156 x1000/uL (130-400); RED BLOOD CELL COUNT 4.59 mill/uL (4.7-6.1); RED CELL DISTRIBUTION WIDTH 15.7 % (11.6-14.6)
[2022-06-27 16:12] LABS: CHLORIDE 106 mEq/L (98-107)
[2022-06-27] MEDS: METOCLOPRAMIDE HCL 10MG/2ML VIAL IV SCH ×2 (17:33→23:30)
[2022-06-27] MEDS: IPRATROPIUM/ALBUTEROL 0.5-3(2.5)MG/3ML NEB HHN PRN ×2 (17:51→22:23)
[2022-06-27] MEDS ORDERED: POTASSIUM CHLORIDE INJ 40 MEQ in DEXT 5% WATER 500 ML IV NR (18:30)
[2022-06-27 20:00] VITALS: BP 123/83
[2022-06-27] MEDS: ATORVASTATIN CALCIUM 20MG TABLET PO SCH (20:49)
[2022-06-28] VITALS: BP 133/99
[2022-06-28 04:00] VITALS: BP 131/90
[2022-06-28 04:05] LABS: CHLORIDE 106 mEq/L (98-107)
[2022-06-28 04:20] LABS: BASOPHILS % 0.7 % (0.0-2.0); EOSINOPHILS % 3.6 % (0.0-5.0); HEMATOCRIT. 34.7 % (42.0-52.0); HEMOGLOBIN. 11.9 g/dL (14.0-18.0); LYMPHOCYTES % 26.5 % (20.0-50.0); MEAN CORPUSCULAR HEMOGLOBIN 28.8 pg (28.0-32.0); MEAN CORPUSCULAR VOLUME 84.3 fL (80.0-94.0); MONOCYTES % 8.6 % (2.0-8.0); NEUTROPHILS % 60.6 % (40.0-76.0); PLATELET 157 x1000/uL (130-400); RED BLOOD CELL COUNT 4.12 mill/uL (4.7-6.1); RED CELL DISTRIBUTION WIDTH 15.2 % (11.6-14.6)
[2022-06-28 04:26] LABS: INR 1.1; PROTHROMBIN TIME 11.4 sec (9.6-11.0)
[2022-06-28] MEDS: METOCLOPRAMIDE HCL 10MG/2ML VIAL IV SCH ×3 (05:22→18:52)
[2022-06-28] MEDS: PIPERACILLIN/TAZOBACTAM 3.375 G in DEXTROSE 5% WATER 50 ML IV SCH ×3 (05:27→22:03)
[2022-06-28] MEDS: BLOOD SUGAR DIAGNOSTIC STRIP TEST SCH ×4 (06:01→21:00)
[2022-06-28] MEDS: INSULIN LISPRO 100 UNITS/ML SUBCUT SCH ×4 (06:01→22:01)
[2022-06-28 08:00] VITALS: BP 119/87
[2022-06-28] MEDS ORDERED: POTASSIUM CHLORIDE INJ 40 MEQ in DEXT 5% WATER 500 ML IV ONE (08:00)
[2022-06-28] MEDS: CARVEDILOL 3.125 MG TABLET PO SCH ×2 (08:20→21:57)
[2022-06-28] MEDS: PANTOPRAZOLE SODIUM 40 MG/VIAL IV SCH (08:20)
[2022-06-28] MEDS: KCL 20MEQ/100ML PREMIX 100 ML IV SCH ×2 (09:41→14:27)
[2022-06-28] MEDS: IPRATROPIUM/ALBUTEROL 0.5-3(2.5)MG/3ML NEB HHN PRN (10:51)
[2022-06-28 12:00] VITALS: BP 111/85
[2022-06-28 12:23] LABS: CHLORIDE 108 mEq/L (98-107)
[2022-06-28] MEDS ORDERED: LIDOCAINE HCL 1% 10 MG/ML 10ML VIAL ONE (12:27)
[2022-06-28] MEDS ORDERED: PROPOFOL 200MG/20ML VIAL IV ONE (12:27)
[2022-06-28] MEDS ORDERED: KCL 20MEQ/100ML PREMIX 100 ML IV ONE (13:00)
[2022-06-28] MEDS ORDERED: MIDAZOLAM HCL 2 MG/2 ML VIAL ONE (13:02)
[2022-06-28] MEDS: DEXTROSE 5% WATER 1,000 ML IV SCH (13:09)
[2022-06-28 20:00] VITALS: BP 158/102
[2022-06-28] MEDS: ATORVASTATIN CALCIUM 20MG TABLET PO SCH (21:57)
[2022-06-28] MEDS ORDERED: IOHEXOL-300 100 ML BOTTLE ONE (22:53)
[2022-06-29] VITALS: BP 129/94
[2022-06-29] MEDS: METOCLOPRAMIDE HCL 10MG/2ML VIAL IV SCH ×4 (01:59→18:29)
[2022-06-29] MEDS: DEXTROSE 5% WATER 1,000 ML IV SCH ×2 (02:29→21:52)
[2022-06-29 04:00] VITALS: BP 147/98
[2022-06-29] MEDS: PIPERACILLIN/TAZOBACTAM 3.375 G in DEXTROSE 5% WATER 50 ML IV SCH ×3 (06:21→22:17)
[2022-06-29 06:23] LABS: HEMATOCRIT 35.5 % (42.0-52.0); MEAN CORPUSCULAR HEMOGLOBIN 28.8 pg (28.0-32.0); MEAN CORPUSCULAR VOLUME 85.4 fL (80.0-94.0); PLATELET 150 x1000/uL (130-400); RED BLOOD CELL COUNT 4.16 mill/uL (4.7-6.1); RED CELL DISTRIBUTION WIDTH 15.6 % (11.6-14.6)
[2022-06-29] MEDS: BLOOD SUGAR DIAGNOSTIC STRIP TEST SCH ×4 (06:40→21:58)
[2022-06-29 06:51] LABS: CHLORIDE 109 mEq/L (98-107)
[2022-06-29] MEDS: INSULIN LISPRO 100 UNITS/ML SUBCUT SCH ×4 (07:10→21:00)
[2022-06-29] MEDS ORDERED: POTASSIUM CHLORIDE INJ 40 MEQ in DEXT 5% WATER 250 ML IV ONE (07:15)
[2022-06-29 08:00] VITALS: BP 149/98
[2022-06-29] MEDS ORDERED: NA PHOS,M-B/NA PHOS,DI-BA ENEMA 118ML PR SCH (08:00)
[2022-06-29] MEDS: KCL 20MEQ/100ML PREMIX 100 ML IV SCH (10:47)
[2022-06-29] MEDS: PANTOPRAZOLE SODIUM 40 MG/VIAL IV SCH (10:47)
[2022-06-29] MEDS: CARVEDILOL 3.125 MG TABLET PO SCH ×2 (10:47→21:53)
[2022-06-29] MEDS: KCL 20MEQ/100ML X 2 FOR TOTAL KCL 40MEQ/200ML IV SCH ×2 (10:48→13:00)
[2022-06-29 12:00] VITALS: BP 132/86
[2022-06-29 15:09] LABS: CHLORIDE 109 mEq/L (98-107)
[2022-06-29 16:00] VITALS: BP 155/98
[2022-06-29 20:00] VITALS: BP 150/84
[2022-06-29] MEDS: ATORVASTATIN CALCIUM 20MG TABLET PO SCH (21:53)
[2022-06-30] VITALS: BP 102/62
[2022-06-30] MEDS: METOCLOPRAMIDE HCL 10MG/2ML VIAL IV SCH ×4 (00:41→17:25)
[2022-06-30 04:00] VITALS: BP 152/107
[2022-06-30] MEDS: DEXTROSE 5% WATER 1,000 ML IV SCH ×2 (05:09→11:46)
[2022-06-30] MEDS: PIPERACILLIN/TAZOBACTAM 3.375 G in DEXTROSE 5% WATER 50 ML IV SCH ×3 (06:22→22:13)
[2022-06-30] MEDS: BLOOD SUGAR DIAGNOSTIC STRIP TEST SCH ×4 (06:32→21:00)
[2022-06-30] MEDS: INSULIN LISPRO 100 UNITS/ML SUBCUT SCH ×4 (06:33→21:00)
[2022-06-30 08:00] VITALS: BP_SYST 142; BP_SYST 147; BP_DIAS 99
[2022-06-30] MEDS: CARVEDILOL 3.125 MG TABLET PO SCH ×2 (09:00→22:09)
[2022-06-30] MEDS ORDERED: HYDRALAZINE 20MG/ML VIAL IV SCH (09:15)
[2022-06-30] MEDS: PANTOPRAZOLE SODIUM 40 MG/VIAL IV SCH (10:03)
[2022-06-30 12:00] VITALS: BP 101/74
[2022-06-30] MEDS ORDERED: KCL 20MEQ/100ML PREMIX 100 ML IV SCH (12:00)
[2022-06-30 16:00] VITALS: BP 124/94
[2022-06-30 20:00] VITALS: BP 126/45
[2022-06-30 20:49] LABS: CHLORIDE 104 mEq/L (98-107)
[2022-06-30] MEDS: ATORVASTATIN CALCIUM 20MG TABLET PO SCH (22:09)
[2022-07-01] VITALS: BP 141/94
[2022-07-01] MEDS ORDERED: KCL 20MEQ/100ML PREMIX 100 ML IV SCH (01:00)
[2022-07-01] MEDS: METOCLOPRAMIDE HCL 10MG/2ML VIAL IV SCH ×2 (01:54→06:36)
[2022-07-01 04:00] VITALS: BP 133/94
[2022-07-01 06:19] LABS: BASOPHILS % 0.6 % (0.0-2.0); EOSINOPHILS % 5.7 % (0.0-5.0); HEMATOCRIT. 35.9 % (42.0-52.0); HEMOGLOBIN. 12.1 g/dL (14.0-18.0); LYMPHOCYTES % 37.4 % (20.0-50.0); MEAN CORPUSCULAR HEMOGLOBIN 28.9 pg (28.0-32.0); MEAN CORPUSCULAR VOLUME 85.6 fL (80.0-94.0); MEAN PLATELET VOLUME 9.6 fl (7.4-10.4); MONOCYTES % 11.5 % (2.0-8.0); NEUTROPHILS % 44.8 % (40.0-76.0); PLATELET 154 x1000/uL (130-400); RED BLOOD CELL COUNT 4.19 mill/uL (4.7-6.1); RED CELL DISTRIBUTION WIDTH 15.5 % (11.6-14.6)
[2022-07-01] MEDS: BLOOD SUGAR DIAGNOSTIC STRIP TEST SCH ×4 (06:36→20:47)
[2022-07-01] MEDS: INSULIN LISPRO 100 UNITS/ML SUBCUT SCH ×4 (06:37→20:47)
[2022-07-01] MEDS: DEXTROSE 5% WATER 1,000 ML IV SCH ×2 (06:38→20:47)
[2022-07-01 07:22] LABS: CHLORIDE 107 mEq/L (98-107)
[2022-07-01 08:00] VITALS: BP 148/111
[2022-07-01] MEDS: CARVEDILOL 3.125 MG TABLET PO SCH ×2 (09:43→20:46)
[2022-07-01] MEDS: PANTOPRAZOLE SODIUM 40 MG/VIAL IV SCH (09:43)
[2022-07-01 12:00] VITALS: BP 146/107
[2022-07-01 16:00] VITALS: BP 132/105
[2022-07-01] MEDS ORDERED: HYDRALAZINE 20MG/ML VIAL IV NR (17:45)
[2022-07-01 20:00] VITALS: BP 117/75
[2022-07-01] MEDS: ATORVASTATIN CALCIUM 20MG TABLET PO SCH (20:47)
[2022-07-02] VITALS: BP 124/93
[2022-07-02 04:00] VITALS: BP 130/73
[2022-07-02] MEDS: BLOOD SUGAR DIAGNOSTIC STRIP TEST SCH ×4 (06:07→21:00)
[2022-07-02] MEDS: INSULIN LISPRO 100 UNITS/ML SUBCUT SCH ×4 (06:20→21:29)
[2022-07-02 06:54] LABS: BASOPHILS % 0.3 % (0.0-2.0); HEMATOCRIT. 35.4 % (42.0-52.0); HEMOGLOBIN. 11.7 g/dL (14.0-18.0); LYMPHOCYTES % 41.6 % (20.0-50.0); MEAN CORPUSCULAR HEMOGLOBIN 28.2 pg (28.0-32.0); MEAN CORPUSCULAR VOLUME 85.1 fL (80.0-94.0); MEAN PLATELET VOLUME 9.6 fl (7.4-10.4); MONOCYTES % 13.7 % (2.0-8.0); NEUTROPHILS % 40.4 % (40.0-76.0); PLATELET 162 x1000/uL (130-400); RED BLOOD CELL COUNT 4.15 mill/uL (4.7-6.1); RED CELL DISTRIBUTION WIDTH 15.8 % (11.6-14.6)
[2022-07-02 06:58] LABS: CHLORIDE 106 mEq/L (98-107)
[2022-07-02] MEDS ORDERED: POTASSIUM CHLORIDE INJ 40 MEQ in DEXT 5% WATER 250 ML IV ONE (07:30)
[2022-07-02 08:00] VITALS: BP 148/85
[2022-07-02] MEDS ORDERED: KCL 20MEQ/100ML X 2 FOR TOTAL KCL 40MEQ/200ML IV SCH (09:00)
[2022-07-02] MEDS: PANTOPRAZOLE SODIUM 40 MG/VIAL IV SCH (09:00)
[2022-07-02] MEDS: CARVEDILOL 3.125 MG TABLET PO SCH ×2 (09:00→20:10)
[2022-07-02] MEDS ORDERED: BUPIVACAINE HCL/PF 0.5% (5MG/ML) 10ML ONE (09:07)
[2022-07-02] MEDS ORDERED: SKIN ADHESIVE 0.7 GM EA TOP ONE (09:07)
[2022-07-02] MEDS ORDERED: PROPOFOL 200MG/20ML VIAL IV ONE (09:14)
[2022-07-02] MEDS ORDERED: FENTANYL CITRATE/PF 50MCG/ML 2ML VIAL ONE (09:14)
[2022-07-02] MEDS ORDERED: LIDOCAINE HCL 1% 10 MG/ML 10ML VIAL ONE (09:14)
[2022-07-02] MEDS ORDERED: CEFAZOLIN SODIUM 1000MG/VIAL ONE (09:15)
[2022-07-02] MEDS ORDERED: SUCCINYLCHOLINE CHLORIDE 200MG/10ML IV ONE (09:15)
[2022-07-02] MEDS ORDERED: MIDAZOLAM HCL 2 MG/2 ML VIAL ONE (09:20)
[2022-07-02] MEDS ORDERED: ONDANSETRON HCL 4MG/2ML INJ ONE (09:24)
[2022-07-02] MEDS ORDERED: EPHEDRINE SULFATE 50MG/ML VIAL ONE (09:51)
[2022-07-02] MEDS ORDERED: PHENYLEPHRINE HCL 10 MG/ML 1ML (IV VIAL) IV ONE (09:51)
[2022-07-02] MEDS ORDERED: GLYCOPYRROLATE 0.2 MG/ML 2ML VIAL ONE (10:05)
[2022-07-02] MEDS: DEXTROSE 5% WATER 1,000 ML IV SCH ×2 (10:29→22:55)
[2022-07-02] MEDS ORDERED: METOPROLOL TARTRATE 5MG/5ML VIAL IV NR (10:45)
[2022-07-02] MEDS ORDERED: ONDANSETRON HCL 4MG/2ML INJ IV PRN (10:45)
[2022-07-02] MEDS: HYDROMORPHONE HCL/PF 2MG/ML CPJ IV PRN ×2 (10:46→11:03)
[2022-07-02] MEDS: KCL 20MEQ/100ML X 2 FOR TOTAL KCL 40MEQ/200ML IV SCH ×2 (14:24→18:00)
[2022-07-02 16:00] VITALS: BP 145/91
[2022-07-02] MEDS: HYDRALAZINE 20MG/ML VIAL IV SCH (17:59)
[2022-07-02 20:00] VITALS: BP 95/72
[2022-07-02] MEDS: ATORVASTATIN CALCIUM 20MG TABLET PO SCH (20:11)
[2022-07-03] VITALS: BP 101/80
[2022-07-03 04:00] VITALS: BP 113/81
[2022-07-03] MEDS: HYDRALAZINE 20MG/ML VIAL IV SCH ×2 (06:00→17:57)
[2022-07-03] MEDS: BLOOD SUGAR DIAGNOSTIC STRIP TEST SCH ×4 (06:13→21:37)
[2022-07-03] MEDS: INSULIN LISPRO 100 UNITS/ML SUBCUT SCH ×4 (06:13→21:00)
[2022-07-03 08:00] VITALS: BP 110/77
[2022-07-03] MEDS: PANTOPRAZOLE SODIUM 40 MG/VIAL IV SCH (10:07)
[2022-07-03] MEDS: CARVEDILOL 3.125 MG TABLET PO SCH ×2 (10:08→21:00)
[2022-07-03 10:25] LABS: BASOPHILS % 0.2 % (0.0-2.0); EOSINOPHILS % 0.1 % (0.0-5.0); HEMATOCRIT. 34.2 % (42.0-52.0); HEMOGLOBIN. 11.7 g/dL (14.0-18.0); LYMPHOCYTES % 16.7 % (20.0-50.0); MEAN CORPUSCULAR VOLUME 84.6 fL (80.0-94.0); MEAN PLATELET VOLUME 9.3 fl (7.4-10.4); MONOCYTES % 10.6 % (2.0-8.0); NEUTROPHILS % 72.4 % (40.0-76.0); PLATELET 176 x1000/uL (130-400); RED BLOOD CELL COUNT 4.05 mill/uL (4.7-6.1); RED CELL DISTRIBUTION WIDTH 15.3 % (11.6-14.6)
[2022-07-03 10:53] LABS: CHLORIDE 104 mEq/L (98-107)
[2022-07-03 12:00] VITALS: BP 112/85
[2022-07-03] MEDS ORDERED: IPRATROPIUM BROMIDE (0.02%) 0.5MG/2.5ML NEB HHN PRN (12:30)
[2022-07-03] MEDS ORDERED: ALBUTEROL (0.083%) 2.5MG/3ML NEB HHN PRN (12:30)
[2022-07-03] MEDS: DEXTROSE 5% WATER 1,000 ML IV SCH ×2 (13:40→22:53)
[2022-07-03 16:00] VITALS: BP 122/80
[2022-07-03] MEDS: POTASSIUM CHLORIDE 20MEQ TABLET SR PO SCH (17:54)
[2022-07-03 20:00] VITALS: BP 107/64
[2022-07-03] MEDS: ATORVASTATIN CALCIUM 20MG TABLET PO SCH (21:37)
[2022-07-04] VITALS: BP 106/69
[2022-07-04] MEDS: METOCLOPRAMIDE HCL 10MG/2ML VIAL IV SCH ×2 (00:05→05:55)
[2022-07-04 04:00] VITALS: BP 111/45
[2022-07-04] MEDS: HYDRALAZINE 20MG/ML VIAL IV SCH ×2 (05:55→17:47)
[2022-07-04] MEDS: BLOOD SUGAR DIAGNOSTIC STRIP TEST SCH ×4 (05:55→21:00)
[2022-07-04] MEDS: INSULIN LISPRO 100 UNITS/ML SUBCUT SCH ×4 (05:55→21:00)
[2022-07-04 07:00] LABS: BASOPHILS % 0.2 % (0.0-2.0); EOSINOPHILS % 0.5 % (0.0-5.0); HEMATOCRIT. 32.7 % (42.0-52.0); HEMOGLOBIN. 11.3 g/dL (14.0-18.0); LYMPHOCYTES % 16.4 % (20.0-50.0); MEAN CORPUSCULAR VOLUME 84.1 fL (80.0-94.0); MEAN PLATELET VOLUME 9.3 fl (7.4-10.4); MONOCYTES % 7.7 % (2.0-8.0); NEUTROPHILS % 75.2 % (40.0-76.0); PLATELET 174 x1000/uL (130-400); RED BLOOD CELL COUNT 3.88 mill/uL (4.7-6.1); RED CELL DISTRIBUTION WIDTH 15.3 % (11.6-14.6)
[2022-07-04 07:33] LABS: CHLORIDE 101 mEq/L (98-107)
[2022-07-04 08:00] VITALS: BP 128/87
[2022-07-04] MEDS: POTASSIUM CHLORIDE 20MEQ TABLET SR PO SCH (09:00)
[2022-07-04] MEDS: CARVEDILOL 3.125 MG TABLET PO SCH ×2 (09:00→21:00)
[2022-07-04] MEDS ORDERED: POTASSIUM CHLORIDE INJ 40 MEQ in DEXT 5% WATER 250 ML IV ONE (09:00)
[2022-07-04] MEDS: PANTOPRAZOLE SODIUM 40 MG/VIAL IV SCH (10:38)
[2022-07-04] MEDS: KCL 20MEQ/100ML X 2 FOR TOTAL KCL 40MEQ/200ML IV SCH ×2 (10:39→14:24)
[2022-07-04] MEDS ORDERED: MAGNESIUM 1 G PREMIX 100 ML IV NR (11:00)
[2022-07-04 12:00] VITALS: BP 157/104
[2022-07-04] MEDS ORDERED: LIDOCAINE HCL 1% 10 MG/ML 10ML VIAL ONE (12:50)
[2022-07-04] MEDS ORDERED: IOHEXOL-300 50 ML BOTTLE IV ONE (12:51)
[2022-07-04] MEDS ORDERED: LIDOCAINE HCL 2% JELLY 5ML ONE (12:51)
[2022-07-04] MEDS ORDERED: IOHEXOL-300 100 ML BOTTLE ONE (13:56)
[2022-07-04] MEDS: DEXTROSE 5% WATER 1,000 ML IV SCH (14:25)
[2022-07-04 16:00] VITALS: BP 138/63
[2022-07-04 20:00] VITALS: BP 130/70
[2022-07-04] MEDS: ATORVASTATIN CALCIUM 20MG TABLET PO SCH (21:00)
[2022-07-05] VITALS: BP 130/88
[2022-07-05 04:00] VITALS: BP 142/75
[2022-07-05] MEDS: HYDRALAZINE 20MG/ML VIAL IV SCH ×2 (05:01→18:01)
[2022-07-05] MEDS: DEXTROSE 5% WATER 1,000 ML IV SCH (05:02)
[2022-07-05] MEDS: BLOOD SUGAR DIAGNOSTIC STRIP TEST SCH ×4 (05:40→21:00)
[2022-07-05] MEDS: INSULIN LISPRO 100 UNITS/ML SUBCUT SCH ×4 (05:40→21:00)
[2022-07-05 06:44] LABS: BASOPHILS % 0.2 % (0.0-2.0); EOSINOPHILS % 1.4 % (0.0-5.0); HEMATOCRIT. 32.5 % (42.0-52.0); HEMOGLOBIN. 11.3 g/dL (14.0-18.0); LYMPHOCYTES % 19.3 % (20.0-50.0); MEAN CORPUSCULAR HEMOGLOBIN 29.1 pg (28.0-32.0); MEAN CORPUSCULAR VOLUME 83.9 fL (80.0-94.0); MEAN PLATELET VOLUME 8.5 fl (7.4-10.4); MONOCYTES % 8.3 % (2.0-8.0); NEUTROPHILS % 70.8 % (40.0-76.0); PLATELET 183 x1000/uL (130-400); RED BLOOD CELL COUNT 3.87 mill/uL (4.7-6.1); RED CELL DISTRIBUTION WIDTH 15.6 % (11.6-14.6)
[2022-07-05 07:08] LABS: CHLORIDE 101 mEq/L (98-107)
[2022-07-05 08:00] VITALS: BP 101/77
[2022-07-05] MEDS ORDERED: POTASSIUM CHLORIDE INJ 40 MEQ in DEXT 5% WATER 250 ML IV ONE (08:15)
[2022-07-05] MEDS: CARVEDILOL 3.125 MG TABLET PO SCH ×2 (09:00→22:45)
[2022-07-05] MEDS: PANTOPRAZOLE SODIUM 40 MG/VIAL IV SCH (10:44)
[2022-07-05] MEDS: KCL 20MEQ/100ML X 2 FOR TOTAL KCL 40MEQ/200ML IV SCH ×2 (10:46→13:01)
[2022-07-05] MEDS: SODIUM CHLORIDE 0.9% 1,000 ML IV SCH (11:22)
[2022-07-05 12:15] VITALS: BP 143/53
[2022-07-05 16:22] VITALS: BP 135/82
[2022-07-05] MEDS: ENOXAPARIN 80MG/0.8ML SYR SUBCUT SCH (18:00)
[2022-07-05 20:00] VITALS: BP 142/70
[2022-07-05] MEDS: ATORVASTATIN CALCIUM 20MG TABLET PO SCH (21:00)
[2022-07-06] VITALS: BP 151/76
[2022-07-06 04:00] VITALS: BP 136/70
[2022-07-06] MEDS: HYDRALAZINE 20MG/ML VIAL IV SCH (06:00)
[2022-07-06] MEDS: BLOOD SUGAR DIAGNOSTIC STRIP TEST SCH ×4 (06:51→21:00)
[2022-07-06] MEDS: INSULIN LISPRO 100 UNITS/ML SUBCUT SCH ×4 (06:51→21:00)
[2022-07-06] MEDS: ENOXAPARIN 80MG/0.8ML SYR SUBCUT SCH ×2 (06:52→18:19)
[2022-07-06] MEDS: SODIUM CHLORIDE 0.9% 1,000 ML IV SCH (06:52)
[2022-07-06 07:02] LABS: CHLORIDE 103 mEq/L (98-107)
[2022-07-06 07:04] LABS: BASOPHILS % 0.2 % (0.0-2.0); EOSINOPHILS % 0.6 % (0.0-5.0); HEMATOCRIT. 31.2 % (42.0-52.0); HEMOGLOBIN. 10.6 g/dL (14.0-18.0); LYMPHOCYTES % 21.3 % (20.0-50.0); MEAN CORPUSCULAR HEMOGLOBIN 28.9 pg (28.0-32.0); MEAN CORPUSCULAR VOLUME 84.8 fL (80.0-94.0); MEAN PLATELET VOLUME 8.6 fl (7.4-10.4); MONOCYTES % 8.3 % (2.0-8.0); NEUTROPHILS % 69.6 % (40.0-76.0); PLATELET 174 x1000/uL (130-400); RED BLOOD CELL COUNT 3.68 mill/uL (4.7-6.1); RED CELL DISTRIBUTION WIDTH 15.5 % (11.6-14.6)
[2022-07-06 07:18] LABS: PHOSPHORUS 1.1 mg/dL (2.5-4.9)
[2022-07-06 08:00] VITALS: BP 114/88
[2022-07-06] MEDS: CARVEDILOL 3.125 MG TABLET PO SCH (09:00)
[2022-07-06] MEDS: PANTOPRAZOLE SODIUM 40 MG/VIAL IV SCH (09:43)
[2022-07-06 12:00] VITALS: BP 118/72
[2022-07-06 16:00] VITALS: BP 125/77
[2022-07-06] MEDS: METOPROLOL TARTRATE 5MG/5ML VIAL IV SCH ×2 (17:02→21:42)
[2022-07-06 20:00] VITALS: BP 126/77
[2022-07-06] MEDS: ATORVASTATIN CALCIUM 20MG TABLET PO SCH (21:41)
[2022-07-07] VITALS: BP 113/92
[2022-07-07] MEDS: METOPROLOL TARTRATE 5MG/5ML VIAL IV SCH (02:00)
[2022-07-07] MEDS: SODIUM CHLORIDE 0.9% 1,000 ML IV SCH (03:00)
[2022-07-07 04:00] VITALS: BP 118/80
[2022-07-07] MEDS: ENOXAPARIN 80MG/0.8ML SYR SUBCUT SCH ×2 (06:15→17:47)
[2022-07-07] MEDS: BLOOD SUGAR DIAGNOSTIC STRIP TEST SCH ×4 (06:16→21:49)
[2022-07-07] MEDS: INSULIN LISPRO 100 UNITS/ML SUBCUT SCH ×4 (06:16→21:00)
[2022-07-07 07:17] LABS: BASOPHILS % 0.4 % (0.0-2.0); EOSINOPHILS % 1.6 % (0.0-5.0); HEMATOCRIT. 29.4 % (42.0-52.0); LYMPHOCYTES % 18.9 % (20.0-50.0); MEAN CORPUSCULAR HEMOGLOBIN 28.9 pg (28.0-32.0); MEAN CORPUSCULAR VOLUME 84.7 fL (80.0-94.0); MEAN PLATELET VOLUME 8.7 fl (7.4-10.4); MONOCYTES % 9.3 % (2.0-8.0); NEUTROPHILS % 69.8 % (40.0-76.0); PLATELET 184 x1000/uL (130-400); RED BLOOD CELL COUNT 3.47 mill/uL (4.7-6.1); RED CELL DISTRIBUTION WIDTH 15.9 % (11.6-14.6)
[2022-07-07 07:25] LABS: CHLORIDE 106 mEq/L (98-107)
[2022-07-07 08:00] VITALS: BP 145/94
[2022-07-07] MEDS ORDERED: POTASSIUM CHLORIDE 20MEQ/PACKET GT SCH (09:30)
[2022-07-07] MEDS ORDERED: METOPROLOL TARTRATE 25MG TABLET GT SCH (09:30)
[2022-07-07 12:00] VITALS: BP 128/78
[2022-07-07 16:00] VITALS: BP 126/75
[2022-07-07 20:00] VITALS: BP 138/78
[2022-07-07] MEDS: ATORVASTATIN CALCIUM 20MG TABLET PO SCH (21:52)
[2022-07-07] MEDS: METOPROLOL TARTRATE 25MG TABLET GT SCH (21:52)
[2022-07-08] VITALS: BP 162/93
[2022-07-08 04:00] VITALS: BP 137/83
[2022-07-08] MEDS: INSULIN LISPRO 100 UNITS/ML SUBCUT SCH (06:26)
[2022-07-08] MEDS: BLOOD SUGAR DIAGNOSTIC STRIP TEST SCH (06:26)
[2022-07-08] MEDS: ENOXAPARIN 80MG/0.8ML SYR SUBCUT SCH (06:31)
[2022-07-08 07:12] LABS: CHLORIDE 106 mEq/L (98-107)
[2022-07-08 07:23] LABS: BASOPHILS % 0.6 % (0.0-2.0); EOSINOPHILS % 1.6 % (0.0-5.0); HEMATOCRIT. 29.2 % (42.0-52.0); HEMOGLOBIN. 10.1 g/dL (14.0-18.0); LYMPHOCYTES % 17.9 % (20.0-50.0); MEAN CORPUSCULAR HEMOGLOBIN 28.9 pg (28.0-32.0); MEAN CORPUSCULAR VOLUME 83.9 fL (80.0-94.0); MEAN PLATELET VOLUME 8.1 fl (7.4-10.4); MONOCYTES % 9.6 % (2.0-8.0); NEUTROPHILS % 70.3 % (40.0-76.0); PLATELET 202 x1000/uL (130-400); RED BLOOD CELL COUNT 3.48 mill/uL (4.7-6.1); RED CELL DISTRIBUTION WIDTH 15.8 % (11.6-14.6)
[2022-07-08 08:00] VITALS: BP 131/96
[2022-07-08] MEDS: METOPROLOL TARTRATE 25MG TABLET GT SCH (09:45)
[2022-07-08 11:14] VITALS: BP 127/64
[2022-07-08 12:00] VITALS: BP 143/78
[2022-07-08] MEDS ORDERED: METOPROLOL TARTRATE 25MG TABLET GT SCH (18:00)
== END 2022-07-08 14:15 | DRG 871 ==
LOC: ER 12:59 → MICUSO 15:37 → 7EST 17:50
PROVIDERS: ADMIT Internal Medicine; ATTEND Internal Medicine
PROC: 0DJ08ZZ Inspection of Upper Intestinal Tract, Via Natural or Artificial Opening Endoscopic (ICD-10-PCS; principal; 2022-06-28)
PROC: 0DH60UZ Insertion of Feeding Device into Stomach, Open Approach (ICD-10-PCS; 2022-07-02)
PROC: 0DW6XUZ Revision of Feeding Device in Stomach, External Approach (ICD-10-PCS; 2022-07-04)
DX: A41.51 Sepsis due to Escherichia coli [E. coli] (principal); E43 Unspecified severe protein-calorie malnutrition; G92.8 Other toxic encephalopathy; N39.0 Urinary tract infection, site not specified; K56.7 Ileus, unspecified; K94.23 Gastrostomy malfunction; E87.20 Acidosis, unspecified; R65.20 Severe sepsis without septic shock; E86.0 Dehydration; F03.90 Unspecified dementia, unspecified severity, without behavioral disturbance, psychotic disturbance, mood disturbance, and anxiety; E11.9 Type 2 diabetes mellitus without complications; E78.00 Pure hypercholesterolemia, unspecified; Z20.822 Contact with and (suspected) exposure to COVID-19; R62.7 Adult failure to thrive; H54.8 Legal blindness, as defined in USA; E78.5 Hyperlipidemia, unspecified; E87.6 Hypokalemia; I48.0 Paroxysmal atrial fibrillation; K44.9 Diaphragmatic hernia without obstruction or gangrene; D64.9 Anemia, unspecified; R13.11 Dysphagia, oral phase; K29.70 Gastritis, unspecified, without bleeding; K63.89 Other specified diseases of intestine; K56.41 Fecal impaction; I49.1 Atrial premature depolarization; N28.1 Cyst of kidney, acquired; I10 Essential (primary) hypertension; Z86.73 Personal history of transient ischemic attack (TIA), and cerebral infarction without residual deficits; Z86.718 Personal history of other venous thrombosis and embolism; Z95.828 Presence of other vascular implants and grafts; Z79.899 Other long term (current) drug therapy; Z79.84 Long term (current) use of oral hypoglycemic drugs; Z79.82 Long term (current) use of aspirin; Z79.4 Long term (current) use of insulin; Z74.01 Bed confinement status; Z68.23 Body mass index [BMI] 23.0-23.9, adult; Y83.2 Surgical operation with anastomosis, bypass or graft as the cause of abnormal reaction of the patient, or of later complication, without mention of misadventure at the time of the procedure
CPT/HCPCS: 36415; 49450; 71045; 71260; 74018; 74177; 80048; 80053; 80061; 81003; 82270; 82570; 82607; 82728; 82746; 82962; 83036; 83520; 83525; 83540; 83550; 83605; 83735; 83880; 84100; 84133; 84145; 84439; 84443; 84484; 85025; 85027; 85044; 85379; 87077; 87186; 87426; 93005; 93970; 94640; 97162; 97166; 99285; C1769; C1893; C9113; C9803; J0330; J0360; J0690; J1170; J1650; J1815; J2250; J2370; J2405; J2543; J2704; J2765; J3010; J3370; J3475; J3480; J3490; J7030; J7060; J7070; Q9967; A4315

== ENCOUNTER 2022-07-12 01:35 | Inpatient (IN) | payer MEDICARE, MEDICAID ==
[~2022-07-12] VITALS: Ht 182.9 cm; Wt 70.8 kg
[2022-07-12] VITALS (58 sets, daily range): BP systolic 86–120; BP diastolic 46–78
[2022-07-12] MEDS ORDERED: SUCCINYLCHOLINE CHLORIDE 200MG/10ML IV ONE (02:00)
[2022-07-12] MEDS ORDERED: VECURONIUM BROMIDE 10 MG/VIAL IV ONE (02:00)
[2022-07-12] MEDS ORDERED: ETOMIDATE 2MG/ML 10ML VIAL IV ONE (02:00)
[2022-07-12] MEDS ORDERED: FENTANYL 2500MCG/250ML PMX 250 ML IV ONE (02:15)
[2022-07-12] MEDS ORDERED: MIDAZOLAM HCL 2 MG/2 ML VIAL IV ONE (02:15)
[2022-07-12 02:37] LABS: BASOPHILS % 0.1 % (0.0-2.0); HEMATOCRIT. 21.4 % (42.0-52.0); LYMPHOCYTES % 9.1 % (20.0-50.0); MEAN CORPUSCULAR HEMOGLOBIN 28.2 pg (28.0-32.0); MEAN PLATELET VOLUME 8.1 fl (7.4-10.4); MONOCYTES % 4.4 % (2.0-8.0); NEUTROPHILS % 86.4 % (40.0-76.0); PLATELET 235 x1000/uL (130-400); RED BLOOD CELL COUNT 2.49 mill/uL (4.7-6.1); RED CELL DISTRIBUTION WIDTH 15.7 % (11.6-14.6)
[2022-07-12 02:43] LABS: CHLORIDE 102 mEq/L (98-107)
[2022-07-12] MEDS ORDERED: SODIUM CHLORIDE 0.9% 1000ML BAG (SEPSIS BOLUS) IV ONE (02:45)
[2022-07-12] MEDS ORDERED: MIDAZOLAM HCL 100 MG in SODIUM CHLORIDE 0.9% 100 ML IV NR (02:45)
[2022-07-12] MEDS ORDERED: VANCOMYCIN 1G PREMIX 200 ML IV SCH ×2 (02:45→08:45)
[2022-07-12] MEDS ORDERED: PIPERACILLIN/TAZOBACTAM 3.375GM/50ML PREMIX IV ONE (02:45)
[2022-07-12] MEDS ORDERED: LORAZEPAM 2MG/ML CPJ IV ONE (02:45)
[2022-07-12] MEDS ORDERED: MIDAZOLAM 100MG/100ML PMX 100 ML IV PRN (02:45)
[2022-07-12] MEDS ORDERED: PIPERACILLIN/TAZ 3.375G PREMIX 50 ML IV NR (02:45)
[2022-07-12 02:47] LABS: INR 1.1; PARTIAL THROMBOPLASTIN TIME 37.9 sec (23.4-31.0)
[2022-07-12 02:54] LABS: ETHANOL BLOOD < 10 mg/dL
[2022-07-12] MEDS: SODIUM CHLORIDE 0.9% 1,000 ML IV SCH ×2 (02:55→12:40)
[2022-07-12 06:45] LABS: BG BASE EXCESS 3.5 mmol/L (-2.0-2.0); BG CARBOXYHEMOGLOBIN 0.5 % (0.5-1.5); BG DEOXYHEMOGLOBIN 0.5 % (0.0-5.0); BG FRACTION INSPIRED OXYGEN 100; BG HCO3 ACT 26.8 mmol/L (22.0-26.0); BG METHEMOGLOBIN 0.2 % (0.0-1.5); BG OXYGEN SATURATION 99.5 % (92.0-98.5); BG OXYHEMOGLOBIN 98.8 % (94.0-97.0); BG PCO2 35.3 mmHg (35.0-45.0); BG PH 7.498 (7.350-7.450); BG PO2 319.9 mmHg (75.0-100.0); BG SAMPLE SITE RIGHT RADIAL; BG TOTAL HEMOGLOBIN 8.8 g/dL (12.0-18.0); BG VENT MODE VENT - AC
[2022-07-12] MEDS ORDERED: ACETAMINOPHEN 650MG/20.3ML UDC GT PRN (08:45)
[2022-07-12] MEDS ORDERED: PIPERACILLIN/TAZ 3.375G PREMIX 50 ML IV SCH (11:00)
[2022-07-12] MEDS: PANTOPRAZOLE SODIUM 40 MG/VIAL IV SCH ×2 (12:40→17:16)
[2022-07-12] MEDS ORDERED: PIPERACILLIN/TAZOBACTAM 3.375 G in DEXTROSE 5% WATER 50 ML IV SCH (14:00)
[2022-07-12] MEDS ORDERED: HYDRALAZINE 20MG/ML VIAL IV PRN (14:00)
[2022-07-12] MEDS: PIPERACILLIN/TAZOBACTAM 3.375 G in DEXTROSE 5% WATER 50 ML IV SCH ×2 (14:19→21:43)
[2022-07-12] MEDS: VANCOMYCIN 750MG PREMIX 150 ML IV SCH (17:16)
[2022-07-12] MEDS ORDERED: VANCOMYCIN 750MG PREMIX 150 ML IV SCH (18:00)
[2022-07-12] MEDS: FENTANYL CITRATE/PF 2,500 MCG in SODIUM CHLORIDE 0.9% 200 ML IV PRN ×2 (18:05→23:28)
[2022-07-12] MEDS: MIDAZOLAM HCL 100 MG in SODIUM CHLORIDE 0.9% 80 ML IV PRN (18:06)
[2022-07-12 18:14] LABS: CLARITY URINE CLEAR (CLEAR); COLOR URINE YELLOW (YELLOW); KETONES URINE TRACE (NEGATIVE); LEUKOCYTE ESTERASE URINE 3+ (NEGATIVE); NITRITE URINE POSITIVE (NEGATIVE); OCCULT BLOOD URINE TRACE (NEGATIVE); PH URINE 5.5 (4.5-8.0); PROTEIN URINE NEGATIVE (NEGATIVE); SPECIFIC GRAVITY URINE 1.025 (1.005-1.030)
[2022-07-12 20:53] LABS: TOTAL IRON BINDING CAPACITY 160 ug/dL (250-450)
[2022-07-12 21:22] LABS: FOLIC ACID (FOLATE) SERUM 4.4 ng/mL (>5.38)
[2022-07-12 23:55] LABS: HEMATOCRIT 18.7 % (42.0-52.0); HEMOGLOBIN 6.3 g/dL (14.0-18.0)
[2022-07-13] VITALS (100 sets, daily range): BP systolic 74–202; BP diastolic 44–135
[2022-07-13] MEDS: SODIUM CHLORIDE 0.9% 1,000 ML IV SCH (02:00)
[2022-07-13] MEDS: PIPERACILLIN/TAZOBACTAM 3.375 G in DEXTROSE 5% WATER 50 ML IV SCH ×3 (05:41→21:48)
[2022-07-13] MEDS: VANCOMYCIN 750MG PREMIX 150 ML IV SCH (05:41)
[2022-07-13] MEDS ORDERED: PIPERACILLIN/TAZOBACTAM 3.375 G in DEXTROSE 5% WATER 50 ML IV SCH (06:00)
[2022-07-13] MEDS ORDERED: LIDOCAINE HCL 1% 10 MG/ML 10ML VIAL ONE (07:19)
[2022-07-13 09:11] LABS: BG BASE EXCESS 0.3 mmol/L (-2.0-2.0); BG CARBOXYHEMOGLOBIN 0.6 % (0.5-1.5); BG DEOXYHEMOGLOBIN 0.4 % (0.0-5.0); BG HCO3 ACT 24.1 mmol/L (22.0-26.0); BG OXYGEN SATURATION 99.6 % (92.0-98.5); BG PCO2 35.2 mmHg (35.0-45.0); BG PH 7.453 (7.350-7.450); BG PO2 321.8 mmHg (75.0-100.0); BG SAMPLE SITE RIGHT RADIAL; BG TOTAL HEMOGLOBIN 7.9 g/dL (12.0-18.0); BG VENT MODE VENT - AC
[2022-07-13] MEDS: PANTOPRAZOLE SODIUM 40 MG/VIAL IV SCH ×2 (09:20→17:47)
[2022-07-13] MEDS ORDERED: NA PHOS,M-B/NA PHOS,DI-BA ENEMA 118ML PR PRN (11:45)
[2022-07-13] MEDS ORDERED: MAGNESIUM/ALUMINUM HYDROXIDE/SIMETHICONE 30ML UDC PO PRN (11:45)
[2022-07-13] MEDS ORDERED: DOCUSATE SODIUM 100MG CAPSULE PO PRN (11:45)
[2022-07-13 12:06] LABS: CHLORIDE 110 mEq/L (98-107)
[2022-07-13 12:17] LABS: BASOPHILS % 0.4 % (0.0-2.0); EOSINOPHILS % 3.2 % (0.0-5.0); HEMATOCRIT. 24.6 % (42.0-52.0); LYMPHOCYTES % 10.7 % (20.0-50.0); MEAN CORPUSCULAR HEMOGLOBIN 29.4 pg (28.0-32.0); MEAN CORPUSCULAR VOLUME 90.4 fL (80.0-94.0); MEAN PLATELET VOLUME 7.9 fl (7.4-10.4); MONOCYTES % 3.7 % (2.0-8.0); PLATELET 146 x1000/uL (130-400); RED BLOOD CELL COUNT 2.72 mill/uL (4.7-6.1); T4 FREE 1.02 ng/dL (0.76-1.46)
[2022-07-13 12:45] LABS: HAPTOGLOBIN 231 mg/dL (30-200)
[2022-07-13 14:31] LABS: PHOSPHORUS 1.3 mg/dL (2.5-4.9)
[2022-07-13 15:33] LABS: CHLORIDE URINE RANDOM 46 mEq/L; SODIUM URINE RANDOM 38 mEq/L
[2022-07-13 15:33] LABS: *AMPHETAMINES SCREEN URINE NEGATIVE (NEGATIVE); *BARBITURATES SCREEN URINE NEGATIVE (NEGATIVE); *BENZODIAZEPINES SCREEN URINE PRESUMTIVE POSITIVE (NEGATIVE); *COCAINE SCREEN URINE NEGATIVE (NEGATIVE); CANNABINOID URINE SCREEN NEGATIVE (NEGATIVE); METHADONE URINE SCREEN NEGATIVE (NEGATIVE); OPIATES URINE SCREEN NEGATIVE (NEGATIVE); PHENCYCLIDINE URINE SCREEN NEGATIVE (NEGATIVE)
[2022-07-13] MEDS ORDERED: MAGNESIUM OXIDE 400MG TABLET PO NR (16:15)
[2022-07-13] MEDS ORDERED: POTASSIUM PHOS,M-BASIC-D-BASIC 10 MMOL in DEXT 5% WATER 246.6667 ML IV NR (17:30)
[2022-07-13] MEDS: FOLIC ACID/VITAMIN B COMP W-C TABLET NG SCH (17:47)
[2022-07-13] MEDS ORDERED: LACTULOSE 20G/30ML UDC PO PRN (21:00)
[2022-07-14] VITALS (100 sets, daily range): BP systolic 93–179; BP diastolic 59–118
[2022-07-14] MEDS: FENTANYL CITRATE/PF 2,500 MCG in SODIUM CHLORIDE 0.9% 200 ML IV PRN (01:26)
[2022-07-14] MEDS: MIDAZOLAM HCL 100 MG in SODIUM CHLORIDE 0.9% 80 ML IV PRN (01:27)
[2022-07-14] MEDS: SODIUM CHLORIDE 0.9% 1,000 ML IV SCH ×2 (01:27→14:35)
[2022-07-14 04:16] LABS: BASOPHILS % 0.2 % (0.0-2.0); EOSINOPHILS % 2.8 % (0.0-5.0); HEMATOCRIT. 23.6 % (42.0-52.0); LYMPHOCYTES % 10.1 % (20.0-50.0); MEAN CORPUSCULAR HEMOGLOBIN 29.7 pg (28.0-32.0); MEAN PLATELET VOLUME 7.9 fl (7.4-10.4); MONOCYTES % 4.3 % (2.0-8.0); NEUTROPHILS % 82.6 % (40.0-76.0); PLATELET 159 x1000/uL (130-400); RED BLOOD CELL COUNT 2.68 mill/uL (4.7-6.1); RED CELL DISTRIBUTION WIDTH 15.3 % (11.6-14.6)
[2022-07-14 04:23] LABS: CHLORIDE 111 mEq/L (98-107)
[2022-07-14] MEDS: CYANOCOBALAMIN 1000MCG TABLET PO SCH (06:33)
[2022-07-14] MEDS: PIPERACILLIN/TAZOBACTAM 3.375 G in DEXTROSE 5% WATER 50 ML IV SCH (06:33)
[2022-07-14 08:15] LABS: BG BASE EXCESS -0.9 mmol/L (-2.0-2.0); BG CARBOXYHEMOGLOBIN 0.4 % (0.5-1.5); BG DEOXYHEMOGLOBIN 1.9 % (0.0-5.0); BG HCO3 ACT 23.2 mmol/L (22.0-26.0); BG METHEMOGLOBIN 0.2 % (0.0-1.5); BG OXYGEN SATURATION 98.1 % (92.0-98.5); BG OXYHEMOGLOBIN 97.5 % (94.0-97.0); BG PCO2 35.4 mmHg (35.0-45.0); BG PH 7.434 (7.350-7.450); BG PO2 121.9 mmHg (75.0-100.0); BG SAMPLE SITE RIGHT RADIAL; BG TOTAL HEMOGLOBIN 8.1 g/dL (12.0-18.0); BG VENT MODE VENT - AC
[2022-07-14] MEDS: FOLIC ACID/VITAMIN B COMP W-C TABLET NG SCH (08:32)
[2022-07-14] MEDS: PANTOPRAZOLE SODIUM 40 MG/VIAL IV SCH ×2 (08:32→17:34)
[2022-07-14] MEDS: FUROSEMIDE 20MG/2ML VIAL IVP SCH (11:39)
[2022-07-14] MEDS ORDERED: FENTANYL 2500MCG/250ML PMX 250 ML IV ONE (12:40)
[2022-07-14] MEDS ORDERED: ETOMIDATE 2MG/ML 10ML VIAL IV NR (13:31)
[2022-07-14] MEDS ORDERED: VECURONIUM BROMIDE 10 MG/VIAL IV NR (13:32)
[2022-07-14] MEDS: CEFEPIME 1,000 MG in DEXTROSE 5% WATER 50 ML IV SCH (14:34)
[2022-07-14] MEDS: LORAZEPAM 2MG/ML CPJ IV PRN (16:14)
[2022-07-14] MEDS ORDERED: FENTANYL CITRATE 2,500 MCG in SODIUM CHLORIDE 0.9% 200 ML IV PRN (16:30)
[2022-07-15] VITALS (75 sets, daily range): BP systolic 83–142; BP diastolic 56–102
[2022-07-15] MEDS: LORAZEPAM 2MG/ML CPJ IV PRN (01:02)
[2022-07-15] MEDS: CEFEPIME 1,000 MG in DEXTROSE 5% WATER 50 ML IV SCH ×2 (03:21→15:17)
[2022-07-15] MEDS: SODIUM CHLORIDE 0.9% 1,000 ML IV SCH ×2 (03:23→16:31)
[2022-07-15 05:15] LABS: HEMATOCRIT. 26.9 % (42.0-52.0); HEMOGLOBIN. 9.2 g/dL (14.0-18.0); MEAN CORPUSCULAR HEMOGLOBIN 29.7 pg (28.0-32.0); MEAN CORPUSCULAR VOLUME 86.6 fL (80.0-94.0); MEAN PLATELET VOLUME 8.1 fl (7.4-10.4); PLATELET 205 x1000/uL (130-400); RED CELL DISTRIBUTION WIDTH 15.1 % (11.6-14.6)
[2022-07-15 05:41] LABS: CHLORIDE 111 mEq/L (98-107)
[2022-07-15 05:48] LABS: PHOSPHORUS 3.5 mg/dL (2.5-4.9)
[2022-07-15] MEDS: CYANOCOBALAMIN 1000MCG TABLET PO SCH (07:17)
[2022-07-15] MEDS: PANTOPRAZOLE SODIUM 40 MG/VIAL IV SCH ×3 (08:25→20:05)
[2022-07-15] MEDS: FUROSEMIDE 20MG/2ML VIAL IVP SCH (08:25)
[2022-07-15] MEDS: FOLIC ACID/VITAMIN B COMP W-C TABLET NG SCH (08:25)
[2022-07-15 09:12] LABS: BG BASE EXCESS 0.1 mmol/L (-2.0-2.0); BG CARBOXYHEMOGLOBIN 1.3 % (0.5-1.5); BG DEOXYHEMOGLOBIN 0.1 % (0.0-5.0); BG FRACTION INSPIRED OXYGEN 60; BG HCO3 ACT 24.4 mmol/L (22.0-26.0); BG METHEMOGLOBIN 0.1 % (0.0-1.5); BG OXYGEN SATURATION 99.9 % (92.0-98.5); BG OXYHEMOGLOBIN 98.5 % (94.0-97.0); BG PH 7.426 (7.350-7.450); BG SAMPLE SITE RIGHT RADIAL; BG TOTAL HEMOGLOBIN 8.8 g/dL (12.0-18.0); BG VENT MODE VENT - AC
[2022-07-15] MEDS ORDERED: MAGNESIUM 2 G PREMIX 50 ML IV NR (10:00)
[2022-07-15 10:18] LABS: PLATELET ESTIMATE NORMAL
[2022-07-15] MEDS: POLYETHYLENE GLYCOL 3350 (17GM) 1 DOSE PACK PO SCH (12:08)
[2022-07-15] MEDS ORDERED: MORPHINE SULFATE 2 MG/ML CPJ (NOT FOR IM USE) IV PRN (13:45)
[2022-07-15] MEDS ORDERED: NALOXONE HCL 0.4MG/ML VIAL IV PRN (14:00)
[2022-07-15 18:29] LABS: HEMATOCRIT 24.7 % (42.0-52.0); HEMOGLOBIN 8.3 g/dL (14.0-18.0)
[2022-07-15] MEDS: CARVEDILOL 3.125 MG TABLET PO SCH (20:06)
[2022-07-15 23:08] LABS: HEMATOCRIT 24.9 % (42.0-52.0); HEMOGLOBIN 8.4 g/dL (14.0-18.0)
[2022-07-16] VITALS (31 sets, daily range): BP systolic 90–140; BP diastolic 49–88
[2022-07-16] MEDS: CEFEPIME 1,000 MG in DEXTROSE 5% WATER 50 ML IV SCH ×2 (02:38→16:04)
[2022-07-16] MEDS: SODIUM CHLORIDE 0.9% 1,000 ML IV SCH (06:00)
[2022-07-16] MEDS: CYANOCOBALAMIN 1000MCG TABLET PO SCH (06:00)
[2022-07-16 06:01] LABS: CHLORIDE 111 mEq/L (98-107)
[2022-07-16 06:07] LABS: PHOSPHORUS 3.1 mg/dL (2.5-4.9)
[2022-07-16 06:57] LABS: BASOPHILS % 0.2 % (0.0-2.0); EOSINOPHILS % 0.6 % (0.0-5.0); HEMATOCRIT. 23.7 % (42.0-52.0); HEMOGLOBIN. 8.1 g/dL (14.0-18.0); LYMPHOCYTES % 11.5 % (20.0-50.0); MEAN CORPUSCULAR HEMOGLOBIN 30.1 pg (28.0-32.0); MEAN CORPUSCULAR VOLUME 87.9 fL (80.0-94.0); MEAN PLATELET VOLUME 8.3 fl (7.4-10.4); MONOCYTES % 4.5 % (2.0-8.0); NEUTROPHILS % 83.2 % (40.0-76.0); PLATELET 207 x1000/uL (130-400); RED CELL DISTRIBUTION WIDTH 15.4 % (11.6-14.6)
[2022-07-16 08:10] LABS: BG BASE EXCESS 2.1 mmol/L (-2.0-2.0); BG CARBOXYHEMOGLOBIN 0.9 % (0.5-1.5); BG HCO3 ACT 25.8 mmol/L (22.0-26.0); BG METHEMOGLOBIN 0.3 % (0.0-1.5); BG OXYHEMOGLOBIN 97.8 % (94.0-97.0); BG PCO2 36.4 mmHg (35.0-45.0); BG PH 7.468 (7.350-7.450); BG PO2 146.1 mmHg (75.0-100.0); BG SAMPLE SITE RIGHT RADIAL; BG TOTAL HEMOGLOBIN 8.5 g/dL (12.0-18.0); BG VENT MODE VENT - AC
[2022-07-16] MEDS ORDERED: PANTOPRAZOLE SODIUM 40 MG/VIAL IV SCH (09:00)
[2022-07-16] MEDS: FOLIC ACID/VITAMIN B COMP W-C TABLET NG SCH (09:36)
[2022-07-16] MEDS: POLYETHYLENE GLYCOL 3350 (17GM) 1 DOSE PACK PO SCH (09:36)
[2022-07-16] MEDS: CARVEDILOL 3.125 MG TABLET PO SCH ×2 (09:36→20:44)
[2022-07-16] MEDS: PANTOPRAZOLE SODIUM 40 MG/VIAL IV SCH ×2 (09:36→20:44)
[2022-07-16 11:41] LABS: BG CARBOXYHEMOGLOBIN 0.2 % (0.5-1.5); BG DEOXYHEMOGLOBIN 1.3 % (0.0-5.0); BG HCO3 ACT 26.2 mmol/L (22.0-26.0); BG METHEMOGLOBIN 0.3 % (0.0-1.5); BG OXYGEN SATURATION 98.7 % (92.0-98.5); BG OXYHEMOGLOBIN 98.2 % (94.0-97.0); BG PCO2 39.5 mmHg (35.0-45.0); BG PO2 144.1 mmHg (75.0-100.0); BG SAMPLE SITE RIGHT RADIAL; BG TOTAL HEMOGLOBIN 9.7 g/dL (12.0-18.0); BG VENT MODE VENT - CPAP
[2022-07-16 12:56] LABS: HEMATOCRIT 24.2 % (42.0-52.0); HEMOGLOBIN 8.2 g/dL (14.0-18.0)
[2022-07-16] MEDS: DOCUSATE SODIUM SUGAR FREE 100MG/10ML UDC PEG SCH ×2 (16:04→20:50)
[2022-07-17] VITALS (64 sets, daily range): BP systolic 95–142; BP diastolic 56–99
[2022-07-17] MEDS: CEFEPIME 1,000 MG in DEXTROSE 5% WATER 50 ML IV SCH ×2 (03:18→17:34)
[2022-07-17 04:51] LABS: BASOPHILS % 0.4 % (0.0-2.0); EOSINOPHILS % 1.8 % (0.0-5.0); HEMATOCRIT. 23.6 % (42.0-52.0); HEMOGLOBIN. 8.1 g/dL (14.0-18.0); LYMPHOCYTES % 13.3 % (20.0-50.0); MEAN CORPUSCULAR HEMOGLOBIN 29.8 pg (28.0-32.0); MEAN CORPUSCULAR VOLUME 86.9 fL (80.0-94.0); MONOCYTES % 5.8 % (2.0-8.0); NEUTROPHILS % 78.7 % (40.0-76.0); PLATELET 249 x1000/uL (130-400); RED BLOOD CELL COUNT 2.72 mill/uL (4.7-6.1); RED CELL DISTRIBUTION WIDTH 16.2 % (11.6-14.6)
[2022-07-17 05:02] LABS: CHLORIDE 109 mEq/L (98-107)
[2022-07-17] MEDS: CARVEDILOL 3.125 MG TABLET PO SCH ×2 (09:02→20:49)
[2022-07-17] MEDS: ZINC SULFATE 220 MG ( 50 ) CAPSULE NG SCH (09:03)
[2022-07-17] MEDS: FOLIC ACID/VITAMIN B COMP W-C TABLET NG SCH (09:03)
[2022-07-17] MEDS: PANTOPRAZOLE SODIUM 40 MG/VIAL IV SCH ×2 (09:03→20:48)
[2022-07-17] MEDS: POLYETHYLENE GLYCOL 3350 (17GM) 1 DOSE PACK PO SCH (09:03)
[2022-07-17] MEDS: DOCUSATE SODIUM SUGAR FREE 100MG/10ML UDC PEG SCH ×2 (09:03→17:35)
[2022-07-17] MEDS: CYANOCOBALAMIN 1000MCG TABLET PO SCH (09:03)
[2022-07-17 12:57] LABS: HEMATOCRIT 25.2 % (42.0-52.0); HEMOGLOBIN 8.4 g/dL (14.0-18.0)
[2022-07-17] MEDS ORDERED: MINERAL OIL ENEMA 133ML PR NR (13:00)
[2022-07-17] MEDS: GUAIFENESIN 200MG/10ML SUGAR FREE UDC PO PRN (17:34)
[2022-07-18] VITALS (55 sets, daily range): BP systolic 104–147; BP diastolic 16–100
[2022-07-18] MEDS: CEFEPIME 1,000 MG in DEXTROSE 5% WATER 50 ML IV SCH ×2 (02:46→16:05)
[2022-07-18 05:55] LABS: CHLORIDE 105 mEq/L (98-107)
[2022-07-18 05:56] LABS: BASOPHILS % 0.4 % (0.0-2.0); EOSINOPHILS % 3.8 % (0.0-5.0); HEMATOCRIT. 24.3 % (42.0-52.0); HEMOGLOBIN. 8.1 g/dL (14.0-18.0); LYMPHOCYTES % 16.3 % (20.0-50.0); MEAN CORPUSCULAR HEMOGLOBIN 29.8 pg (28.0-32.0); MEAN CORPUSCULAR VOLUME 88.9 fL (80.0-94.0); MONOCYTES % 7.8 % (2.0-8.0); NEUTROPHILS % 71.7 % (40.0-76.0); PLATELET 267 x1000/uL (130-400); RED BLOOD CELL COUNT 2.73 mill/uL (4.7-6.1); RED CELL DISTRIBUTION WIDTH 16.3 % (11.6-14.6)
[2022-07-18] MEDS: ZINC SULFATE 220 MG ( 50 ) CAPSULE NG SCH (10:03)
[2022-07-18] MEDS: PANTOPRAZOLE SODIUM 40 MG/VIAL IV SCH (10:03)
[2022-07-18] MEDS: GUAIFENESIN 200MG/10ML SUGAR FREE UDC PO PRN ×2 (10:03→16:52)
[2022-07-18] MEDS: FOLIC ACID/VITAMIN B COMP W-C TABLET NG SCH (10:03)
[2022-07-18] MEDS: POLYETHYLENE GLYCOL 3350 (17GM) 1 DOSE PACK PO SCH (10:03)
[2022-07-18] MEDS: DOCUSATE SODIUM SUGAR FREE 100MG/10ML UDC PEG SCH ×2 (10:04→16:52)
[2022-07-18] MEDS: CARVEDILOL 3.125 MG TABLET PO SCH (10:06)
== END 2022-07-18 17:50 | DRG 870 ==
LOC: ER 01:53 → MICUSO 02:52 → EDBEDREQTM 02:58 → EDBEDREQ 02:58 → MICUNO 11:04
PROVIDERS: ADMIT Hospitalist; ATTEND Hospitalist
PROC: 5A09357 Assistance with Respiratory Ventilation, Less than 24 Consecutive Hours, Continuous Positive Airway Pressure (ICD-10-PCS; principal; 2022-07-12)
PROC: 5A1955Z Respiratory Ventilation, Greater than 96 Consecutive Hours (ICD-10-PCS; 2022-07-12)
PROC: 0BH17EZ Insertion of Endotracheal Airway into Trachea, Via Natural or Artificial Opening (ICD-10-PCS; 2022-07-12)
PROC: 30233N1 Transfusion of Nonautologous Red Blood Cells into Peripheral Vein, Percutaneous Approach (ICD-10-PCS; 2022-07-12)
PROC: 4A00X4Z Measurement of Central Nervous Electrical Activity, External Approach (ICD-10-PCS; 2022-07-17)
DX: A41.9 Sepsis, unspecified organism (principal); L89.153 Pressure ulcer of sacral region, stage 3; G92.8 Other toxic encephalopathy; J18.9 Pneumonia, unspecified organism; J96.01 Acute respiratory failure with hypoxia; E46 Unspecified protein-calorie malnutrition; N39.0 Urinary tract infection, site not specified; E87.3 Alkalosis; D62 Acute posthemorrhagic anemia; E11.9 Type 2 diabetes mellitus without complications; E03.8 Other specified hypothyroidism; E53.8 Deficiency of other specified B group vitamins; E78.00 Pure hypercholesterolemia, unspecified; F03.90 Unspecified dementia, unspecified severity, without behavioral disturbance, psychotic disturbance, mood disturbance, and anxiety; H54.8 Legal blindness, as defined in USA; I10 Essential (primary) hypertension; I48.91 Unspecified atrial fibrillation; R13.12 Dysphagia, oropharyngeal phase; K44.9 Diaphragmatic hernia without obstruction or gangrene; E83.42 Hypomagnesemia; Z20.822 Contact with and (suspected) exposure to COVID-19; K59.09 Other constipation; E78.5 Hyperlipidemia, unspecified; R74.01 Elevation of levels of liver transaminase levels; Z86.718 Personal history of other venous thrombosis and embolism; Z74.01 Bed confinement status; Z79.84 Long term (current) use of oral hypoglycemic drugs; Z86.73 Personal history of transient ischemic attack (TIA), and cerebral infarction without residual deficits; Z95.828 Presence of other vascular implants and grafts; Z93.1 Gastrostomy status; Z79.899 Other long term (current) drug therapy
CPT/HCPCS: 31500; 36415; 36573; 36600; 71045; 74018; 80048; 80053; 80076; 80305; 80320; 81003; 82270; 82375; 82436; 82607; 82728; 82746; 82805; 82962; 83010; 83540; 83550; 83605; 83615; 83735; 83880; 84100; 84134; 84145; 84300; 84439; 84443; 84484; 85014; 85018; 85025; 85044; 85384; 86850; 86900; 86920; 87077; 87186; 87426; 93005; 93306; 93970; 94002; 94003; 95816; 99291; A6261; C1725; C9113; J0330; J0360; J0692; J1940; J2060; J2250; J2543; J3010; J3370; J3475; J3490; J7030; J7050; J7060; P9016; G0480

== ENCOUNTER 2022-09-07 04:31 | Inpatient (IN) | payer MEDICARE, MEDICAID ==
[~2022-09-07] VITALS: Ht 170.2 cm; Wt 68.9 kg
[2022-09-07] MEDS ORDERED: PANTOPRAZOLE SODIUM 40 MG/VIAL IV ONE (05:15)
[2022-09-07] MEDS ORDERED: ONDANSETRON HCL 4MG/2ML INJ IV ONE (05:30)
[2022-09-07 05:38] LABS: BASOPHILS % 0.1 % (0.0-2.0); EOSINOPHILS % 0.1 % (0.0-5.0); HEMATOCRIT. 33.2 % (42.0-52.0); HEMOGLOBIN. 10.9 g/dL (14.0-18.0); LYMPHOCYTES % 12.8 % (20.0-50.0); MEAN CORPUSCULAR HEMOGLOBIN 28.7 pg (28.0-32.0); MEAN CORPUSCULAR VOLUME 87.7 fL (80.0-94.0); MEAN PLATELET VOLUME 8.8 fl (7.4-10.4); MONOCYTES % 3.9 % (2.0-8.0); NEUTROPHILS % 83.1 % (40.0-76.0); PLATELET 317 x1000/uL (130-400); RED BLOOD CELL COUNT 3.79 mill/uL (4.7-6.1); RED CELL DISTRIBUTION WIDTH 16.6 % (11.6-14.6)
[2022-09-07 05:47] LABS: INR 1.1; PROTHROMBIN TIME 11.4 sec (9.6-11.0)
[2022-09-07 05:50] LABS: CHLORIDE 97 mEq/L (98-107)
[2022-09-07] MEDS ORDERED: PIPERACILLIN/TAZ 3.375G PREMIX 50 ML IV ONE (06:00)
[2022-09-07] MEDS ORDERED: VANCOMYCIN 1G PREMIX 200 ML IV SCH (06:00)
[2022-09-07] MEDS ORDERED: SODIUM CHLORIDE 0.9% 500 ML IV ONE (07:30)
[2022-09-07] MEDS ORDERED: CLONIDINE 0.1MG TABLET PO PRN (11:00)
[2022-09-07] MEDS ORDERED: HYDROCODONE/ACETAMINOPHEN 5/325MG TABLET PO PRN (11:00)
[2022-09-07] MEDS ORDERED: GUAIFENESIN 200MG/10ML SUGAR FREE UDC PO PRN (11:00)
[2022-09-07] MEDS ORDERED: ENOXAPARIN 40MG/0.4ML SYR SUBCUT SCH (11:00)
[2022-09-07] MEDS ORDERED: MAGNESIUM/ALUMINUM HYDROXIDE/SIMETHICONE 30ML UDC PO PRN (11:00)
[2022-09-07] MEDS ORDERED: IPRATROPIUM/ALBUTEROL 0.5-3(2.5)MG/3ML NEB NEB PRN (11:00)
[2022-09-07] MEDS ORDERED: ACETAMINOPHEN 325MG TABLET PO PRN (11:00)
[2022-09-07] MEDS ORDERED: NALOXONE HCL 0.4MG/ML VIAL IV PRN (11:15)
[2022-09-07 11:30] VITALS: BP 128/81
[2022-09-07] MEDS: ONDANSETRON HCL 4MG/2ML INJ IV PRN (12:38)
[2022-09-07] MEDS: DEXT 5%/0.9% NACL 1,000 ML IV SCH (12:45)
[2022-09-07] MEDS: PANTOPRAZOLE SODIUM 40 MG/VIAL IV SCH ×2 (12:46→21:14)
[2022-09-07] MEDS: CARVEDILOL 3.125 MG TABLET PO SCH ×2 (13:01→21:15)
[2022-09-07] MEDS ORDERED: CEFTRIAXONE 1 G PREMIX 50 ML IV SCH (14:15)
[2022-09-07] MEDS: ZINC OXIDE 20% OINT 30GM TOP SCH ×2 (15:00→17:00)
[2022-09-07] MEDS: CEFTRIAXONE 1,000 MG in DEXTROSE 5% WATER 50 ML IV SCH (15:02)
[2022-09-07 16:00] VITALS: BP 126/76
[2022-09-07] MEDS: GUAIFENESIN 200MG/10ML SUGAR FREE UDC PO SCH (17:46)
[2022-09-07 20:01] VITALS: BP 113/74
[2022-09-07] MEDS: ALBUTEROL (0.083%) 2.5MG/3ML NEB HHN SCH (20:50)
[2022-09-07] MEDS: IPRATROPIUM BROMIDE (0.02%) 0.5MG/2.5ML NEB HHN SCH (20:51)
[2022-09-07 21:00] VITALS: BP 113/69
[2022-09-07] MEDS ORDERED: DEXTROSE 50% WATER 50ML SYRINGE IV PRN (21:45)
[2022-09-07 23:33] VITALS: BP 114/72
[2022-09-08] VITALS (7 sets, daily range): BP systolic 88–135; BP diastolic 47–87
[2022-09-08 00:06] LABS: CLARITY URINE CLEAR (CLEAR); COLOR URINE DARK YELLOW (YELLOW); KETONES URINE NEGATIVE (NEGATIVE); LEUKOCYTE ESTERASE URINE 1+ (NEGATIVE); NITRITE URINE POSITIVE (NEGATIVE); OCCULT BLOOD URINE 2+ (NEGATIVE); PH URINE 5.5 (4.5-8.0); PROTEIN URINE 1+ (NEGATIVE); SPECIFIC GRAVITY URINE 1.029 (1.005-1.030)
[2022-09-08] MEDS: GUAIFENESIN 200MG/10ML SUGAR FREE UDC PO SCH ×5 (00:45→23:39)
[2022-09-08] MEDS: DEXT 5%/0.9% NACL 1,000 ML IV SCH ×3 (00:46→16:02)
[2022-09-08] MEDS: ALBUTEROL (0.083%) 2.5MG/3ML NEB HHN SCH ×4 (01:02→21:22)
[2022-09-08] MEDS: IPRATROPIUM BROMIDE (0.02%) 0.5MG/2.5ML NEB HHN SCH ×4 (01:03→21:22)
[2022-09-08 06:01] LABS: CHLORIDE 106 mEq/L (98-107)
[2022-09-08 06:19] LABS: BASOPHILS % 0.2 % (0.0-2.0); CREATINE KINASE 21 IU/L (39-308); EOSINOPHILS % 0.1 % (0.0-5.0); HDL CHOLESTEROL 32 mg/dL (40-59); HEMATOCRIT. 28.6 % (42.0-52.0); HEMOGLOBIN. 9.3 g/dL (14.0-18.0); LDL CHOLESTEROL 31 mg/dL (5-100); LYMPHOCYTES % 14.2 % (20.0-50.0); MEAN CORPUSCULAR HEMOGLOBIN 28.6 pg (28.0-32.0); MEAN CORPUSCULAR VOLUME 88.2 fL (80.0-94.0); MEAN PLATELET VOLUME 8.9 fl (7.4-10.4); MONOCYTES % 4.5 % (2.0-8.0); PLATELET 261 x1000/uL (130-400); RED BLOOD CELL COUNT 3.25 mill/uL (4.7-6.1); RED CELL DISTRIBUTION WIDTH 16.7 % (11.6-14.6); T4 FREE 1.53 ng/dL (0.76-1.46); TOTAL IRON BINDING CAPACITY 161 ug/dL (250-450)
[2022-09-08] MEDS: BLOOD SUGAR DIAGNOSTIC STRIP TEST SCH ×4 (06:32→20:49)
[2022-09-08] MEDS: INSULIN LISPRO 100 UNITS/ML SUBCUT SCH ×4 (07:20→20:50)
[2022-09-08] MEDS: PANTOPRAZOLE SODIUM 40 MG/VIAL IV SCH ×2 (08:18→20:49)
[2022-09-08] MEDS: ONDANSETRON HCL 4MG/2ML INJ IV PRN (08:18)
[2022-09-08] MEDS: CARVEDILOL 3.125 MG TABLET PO SCH ×2 (09:45→20:49)
[2022-09-08] MEDS: ZINC OXIDE 20% OINT 30GM TOP SCH ×2 (09:45→17:23)
[2022-09-08] MEDS ORDERED: POTASSIUM CHLORIDE 20MEQ/PACKET GT NR (12:00)
[2022-09-08] MEDS ORDERED: IRON SUCROSE COMPLEX 100 MG/5 ML ML IV NR (12:00)
[2022-09-08] MEDS ORDERED: LACTULOSE 20G/30ML UDC GT NR (12:00)
[2022-09-08] MEDS: CEFTRIAXONE 1,000 MG in DEXTROSE 5% WATER 50 ML IV SCH (16:02)
[2022-09-09] VITALS (7 sets, daily range): BP systolic 100–128; BP diastolic 33–94
[2022-09-09 01:48] LABS: CREATINE KINASE MB FRACTION 1.5 ng/mL (0.5-3.6)
[2022-09-09] MEDS: IPRATROPIUM BROMIDE (0.02%) 0.5MG/2.5ML NEB HHN SCH ×4 (02:09→21:02)
[2022-09-09] MEDS: ALBUTEROL (0.083%) 2.5MG/3ML NEB HHN SCH ×3 (02:10→21:02)
[2022-09-09 06:00] LABS: CHLORIDE 108 mEq/L (98-107)
[2022-09-09 06:17] LABS: CREATINE KINASE 34 IU/L (39-308); CREATINE KINASE MB FRACTION 1.6 ng/mL (0.5-3.6); PHOSPHORUS 2.9 mg/dL (2.5-4.9)
[2022-09-09 06:45] LABS: BASOPHILS % 0.1 % (0.0-2.0); HEMATOCRIT. 28.9 % (42.0-52.0); HEMOGLOBIN. 9.4 g/dL (14.0-18.0); LYMPHOCYTES % 16.1 % (20.0-50.0); MEAN CORPUSCULAR HEMOGLOBIN 28.9 pg (28.0-32.0); MEAN CORPUSCULAR VOLUME 88.4 fL (80.0-94.0); MEAN PLATELET VOLUME 9.1 fl (7.4-10.4); MONOCYTES % 4.5 % (2.0-8.0); NEUTROPHILS % 79.3 % (40.0-76.0); PLATELET 267 x1000/uL (130-400); RED BLOOD CELL COUNT 3.27 mill/uL (4.7-6.1); RED CELL DISTRIBUTION WIDTH 16.4 % (11.6-14.6)
[2022-09-09] MEDS: BLOOD SUGAR DIAGNOSTIC STRIP TEST SCH ×4 (06:50→21:20)
[2022-09-09] MEDS: GUAIFENESIN 200MG/10ML SUGAR FREE UDC PO SCH ×3 (07:06→17:30)
[2022-09-09] MEDS: INSULIN LISPRO 100 UNITS/ML SUBCUT SCH ×4 (07:20→21:00)
[2022-09-09] MEDS: ACETAMINOPHEN 325MG TABLET PO PRN (08:46)
[2022-09-09] MEDS: PANTOPRAZOLE SODIUM 40 MG/VIAL IV SCH ×2 (08:46→21:29)
[2022-09-09] MEDS: CARVEDILOL 3.125 MG TABLET PO SCH ×2 (08:47→21:29)
[2022-09-09] MEDS: ZINC OXIDE 20% OINT 30GM TOP SCH ×2 (08:58→17:29)
[2022-09-09 13:15] LABS: CREATINE KINASE MB FRACTION 1.2 ng/mL (0.5-3.6)
[2022-09-09] MEDS: CEFTRIAXONE 1,000 MG in DEXTROSE 5% WATER 50 ML IV SCH (16:10)
[2022-09-09] MEDS: DEXT 5%/0.9% NACL 1,000 ML IV SCH (17:30)
[2022-09-10] MEDS: GUAIFENESIN 200MG/10ML SUGAR FREE UDC PO SCH ×4 (00:15→17:47)
[2022-09-10 00:16] VITALS: BP 112/77
[2022-09-10] MEDS: IPRATROPIUM BROMIDE (0.02%) 0.5MG/2.5ML NEB HHN SCH ×4 (01:06→20:56)
[2022-09-10] MEDS: ALBUTEROL (0.083%) 2.5MG/3ML NEB HHN SCH ×4 (01:06→20:56)
[2022-09-10 04:00] VITALS: BP 132/80
[2022-09-10] MEDS: DEXT 5%/0.9% NACL 1,000 ML IV SCH ×2 (06:47→20:13)
[2022-09-10] MEDS: BLOOD SUGAR DIAGNOSTIC STRIP TEST SCH ×4 (06:54→20:29)
[2022-09-10 07:16] LABS: BASOPHILS % 0.1 % (0.0-2.0); EOSINOPHILS % 0.1 % (0.0-5.0); HEMATOCRIT. 27.2 % (42.0-52.0); LYMPHOCYTES % 12.1 % (20.0-50.0); MEAN CORPUSCULAR HEMOGLOBIN 29.3 pg (28.0-32.0); MEAN CORPUSCULAR VOLUME 88.7 fL (80.0-94.0); MEAN PLATELET VOLUME 9.1 fl (7.4-10.4); MONOCYTES % 4.9 % (2.0-8.0); NEUTROPHILS % 82.8 % (40.0-76.0); PLATELET 247 x1000/uL (130-400); RED BLOOD CELL COUNT 3.07 mill/uL (4.7-6.1); RED CELL DISTRIBUTION WIDTH 16.6 % (11.6-14.6)
[2022-09-10] MEDS: INSULIN LISPRO 100 UNITS/ML SUBCUT SCH ×4 (07:20→20:30)
[2022-09-10 08:00] VITALS: BP 139/94
[2022-09-10 08:00] LABS: CHLORIDE 111 mEq/L (98-107)
[2022-09-10] MEDS: CARVEDILOL 3.125 MG TABLET PO SCH (09:22)
[2022-09-10] MEDS: PANTOPRAZOLE SODIUM 40 MG/VIAL IV SCH ×2 (09:22→20:42)
[2022-09-10] MEDS: ZINC OXIDE 20% OINT 30GM TOP SCH ×2 (09:41→17:48)
[2022-09-10] MEDS ORDERED: POTASSIUM CHLORIDE 20MEQ/PACKET GT NR (10:15)
[2022-09-10 12:00] VITALS: BP 145/78
[2022-09-10] MEDS ORDERED: BISACODYL 5MG TABLET PO NR (13:30)
[2022-09-10] MEDS ORDERED: BISACODYL 10MG SUPP PR PRN (13:30)
[2022-09-10] MEDS ORDERED: SENNOSIDES 8.6MG TABLET PO PRN (13:30)
[2022-09-10] MEDS: DOCUSATE SODIUM SUGAR FREE 100MG/10ML UDC NG SCH (14:33)
[2022-09-10] MEDS: CEFTRIAXONE 1,000 MG in DEXTROSE 5% WATER 50 ML IV SCH (15:45)
[2022-09-10 16:00] VITALS: BP 120/86
[2022-09-10 20:12] VITALS: BP 144/100
[2022-09-10] MEDS ORDERED: METOPROLOL TARTRATE 50MG TABLET GT SCH (21:00)
[2022-09-11] VITALS: BP 140/89
[2022-09-11] MEDS: GUAIFENESIN 200MG/10ML SUGAR FREE UDC PO SCH ×3 (00:10→12:00)
[2022-09-11] MEDS: ALBUTEROL (0.083%) 2.5MG/3ML NEB HHN SCH ×2 (02:23→07:42)
[2022-09-11] MEDS: IPRATROPIUM BROMIDE (0.02%) 0.5MG/2.5ML NEB HHN SCH ×2 (02:23→07:43)
[2022-09-11 04:00] VITALS: BP 139/67
[2022-09-11 05:52] LABS: BASOPHILS % 0.1 % (0.0-2.0); EOSINOPHILS % 0.1 % (0.0-5.0); HEMATOCRIT. 26.8 % (42.0-52.0); HEMOGLOBIN. 8.7 g/dL (14.0-18.0); MEAN CORPUSCULAR HEMOGLOBIN 28.4 pg (28.0-32.0); MEAN CORPUSCULAR VOLUME 87.4 fL (80.0-94.0); MEAN PLATELET VOLUME 8.7 fl (7.4-10.4); MONOCYTES % 5.4 % (2.0-8.0); NEUTROPHILS % 83.4 % (40.0-76.0); PLATELET 255 x1000/uL (130-400); RED BLOOD CELL COUNT 3.07 mill/uL (4.7-6.1); RED CELL DISTRIBUTION WIDTH 16.3 % (11.6-14.6)
[2022-09-11] MEDS: BLOOD SUGAR DIAGNOSTIC STRIP TEST SCH ×2 (06:06→11:48)
[2022-09-11] MEDS: INSULIN LISPRO 100 UNITS/ML SUBCUT SCH ×2 (07:20→11:49)
[2022-09-11 07:33] LABS: CHLORIDE 111 mEq/L (98-107)
[2022-09-11 08:00] VITALS: BP 147/89
[2022-09-11] MEDS: DEXT 5%/0.9% NACL 1,000 ML IV SCH (08:15)
[2022-09-11] MEDS: PANTOPRAZOLE SODIUM 40 MG/VIAL IV SCH (08:17)
[2022-09-11] MEDS: ZINC OXIDE 20% OINT 30GM TOP SCH (08:30)
[2022-09-11] MEDS: DOCUSATE SODIUM SUGAR FREE 100MG/10ML UDC NG SCH (08:30)
[2022-09-11] MEDS ORDERED: METO100T16 GT (08:43)
[2022-09-11] MEDS ORDERED: FERR325T6 GT (08:43)
[2022-09-11] MEDS ORDERED: METOPROLOL TARTRATE 100MG TABLET GT SCH (09:00)
[2022-09-11 09:23] VITALS: BP 147/89
[2022-09-11] MEDS ORDERED: LEVO750T68 GT (09:44)
[2022-09-11] MEDS ORDERED: LEVOFLOXACIN 250MG TABLET GT SCH (11:00)
[2022-09-11 11:22] VITALS: BP_SYST 131; BP_SYST 132; BP_DIAS 55; BP_DIAS 78
[2022-09-11] MEDS: ACETAMINOPHEN 325MG TABLET PO PRN (12:56)
[2022-09-11] MEDS ORDERED: CEFTRIAXONE 1 G PREMIX 50 ML IV SCH (16:00)
[2022-09-11 18:45] LABS: FOLIC ACID (FOLATE) SERUM 12.3 ng/mL (>5.38)
== END 2022-09-11 13:40 | DRG 871 ==
LOC: ER 04:31 → 3WST 07:22 → EDBEDREQ 07:29 → EDBEDREQTM 07:29 → ENRESERV 09:44
PROVIDERS: ADMIT Internal Medicine; ATTEND Internal Medicine
DX: A41.9 Sepsis, unspecified organism (principal); J69.0 Pneumonitis due to inhalation of food and vomit; J96.01 Acute respiratory failure with hypoxia; G93.40 Encephalopathy, unspecified; E44.0 Moderate protein-calorie malnutrition; N39.0 Urinary tract infection, site not specified; I50.30 Unspecified diastolic (congestive) heart failure; R13.10 Dysphagia, unspecified; L89.159 Pressure ulcer of sacral region, unspecified stage; K44.9 Diaphragmatic hernia without obstruction or gangrene; I11.0 Hypertensive heart disease with heart failure; F03.90 Unspecified dementia, unspecified severity, without behavioral disturbance, psychotic disturbance, mood disturbance, and anxiety; E11.9 Type 2 diabetes mellitus without complications; E78.5 Hyperlipidemia, unspecified; D63.8 Anemia in other chronic diseases classified elsewhere; Z20.822 Contact with and (suspected) exposure to COVID-19; H54.8 Legal blindness, as defined in USA; L84 Corns and callosities; M20.40 Other hammer toe(s) (acquired), unspecified foot; K21.9 Gastro-esophageal reflux disease without esophagitis; Z79.82 Long term (current) use of aspirin; Z95.828 Presence of other vascular implants and grafts; Z86.73 Personal history of transient ischemic attack (TIA), and cerebral infarction without residual deficits; Z86.718 Personal history of other venous thrombosis and embolism; Z93.1 Gastrostomy status; Z74.01 Bed confinement status; Z87.891 Personal history of nicotine dependence; Z79.84 Long term (current) use of oral hypoglycemic drugs; Z79.899 Other long term (current) drug therapy; Z68.23 Body mass index [BMI] 23.0-23.9, adult
CPT/HCPCS: 36415; 71045; 74018; 80048; 80053; 80061; 80076; 81003; 82040; 82248; 82550; 82553; 82607; 82728; 82746; 82962; 83036; 83540; 83550; 83605; 83735; 83880; 84100; 84134; 84145; 84439; 84443; 84484; 85025; 85044; 86850; 86900; 87426; 93005; 93306; 93970; 94640; 99291; A6261; C9113; J0696; J1815; J2405; J2543; J3370; J7040; J7060; A4315

== ENCOUNTER 2022-09-20 13:47 | Inpatient (IN) | payer MEDICARE, MEDICAID ==
[~2022-09-20] VITALS: Ht 170.2 cm; Wt 60.8 kg
[~2022-09-20 13:47] MED LIST changes: -COR3 PO; -ESOM20CA MT; +FERR325T6 GT; -FERR325T6 MT; +LEVO750T68 GT; -LINA5TAB PO; -MEMA5TAB7 PO; +METO100T16 GT; -OLAN2.5T3 MT; -POTA-204 PO
[2022-09-20 17:14] LABS: BASOPHILS % 0.2 % (0.0-2.0); EOSINOPHILS % 0.9 % (0.0-5.0); HEMATOCRIT. 22.9 % (42.0-52.0); HEMOGLOBIN. 7.6 g/dL (14.0-18.0); LYMPHOCYTES % 12.5 % (20.0-50.0); MEAN CORPUSCULAR HEMOGLOBIN 27.8 pg (28.0-32.0); MEAN CORPUSCULAR VOLUME 84.3 fL (80.0-94.0); MEAN PLATELET VOLUME 7.8 fl (7.4-10.4); MONOCYTES % 7.1 % (2.0-8.0); NEUTROPHILS % 79.3 % (40.0-76.0); PLATELET 463 x1000/uL (130-400); RED BLOOD CELL COUNT 2.72 mill/uL (4.7-6.1); RED CELL DISTRIBUTION WIDTH 16.5 % (11.6-14.6)
[2022-09-20 17:20] LABS: CHLORIDE 98 mEq/L (98-107)
[2022-09-20] MEDS ORDERED: SODIUM CHLORIDE 0.9% 500 ML IV ONE (17:30)
[2022-09-20 18:02] LABS: BG BASE EXCESS 11.1 mmol/L (-2.0-2.0); BG CARBOXYHEMOGLOBIN 0.9 % (0.5-1.5); BG DEOXYHEMOGLOBIN 1.6 % (0.0-5.0); BG FRACTION INSPIRED OXYGEN 28; BG HCO3 ACT 34.2 mmol/L (22.0-26.0); BG METHEMOGLOBIN 0.1 % (0.0-1.5); BG OXYGEN SATURATION 98.4 % (92.0-98.5); BG OXYHEMOGLOBIN 97.4 % (94.0-97.0); BG PCO2 38.5 mmHg (35.0-45.0); BG PH 7.566 (7.350-7.450); BG PO2 102.7 mmHg (75.0-100.0); BG SAMPLE SITE RIGHT RADIAL; BG TOTAL HEMOGLOBIN 8.2 g/dL (12.0-18.0); BG VENT MODE NASAL CANNULA
[2022-09-20] MEDS ORDERED: CEFTRIAXONE 1GM PREMIX 50 ML IV NR (18:15)
[2022-09-20 20:17] LABS: CLARITY URINE CLOUDY (CLEAR); COLOR URINE DARK YELLOW (YELLOW); KETONES URINE TRACE (NEGATIVE); LEUKOCYTE ESTERASE URINE 2+ (NEGATIVE); NITRITE URINE NEGATIVE (NEGATIVE); OCCULT BLOOD URINE 3+ (NEGATIVE); PH URINE 6.5 (4.5-8.0); PROTEIN URINE 2+ (NEGATIVE); SPECIFIC GRAVITY URINE 1.027 (1.005-1.030)
[2022-09-20 22:00] VITALS: BP 116/68
[2022-09-20 23:30] VITALS: BP 116/68
[2022-09-21] VITALS: BP 132/85
[2022-09-21] MEDS ORDERED: MAGNESIUM/ALUMINUM HYDROXIDE/SIMETHICONE 30ML UDC PO PRN (00:30)
[2022-09-21] MEDS ORDERED: CLONIDINE 0.1MG TABLET PO PRN (00:30)
[2022-09-21] MEDS ORDERED: DOCUSATE SODIUM 100MG CAPSULE PO PRN (00:30)
[2022-09-21] MEDS ORDERED: ACETAMINOPHEN 325MG TABLET PO PRN (00:30)
[2022-09-21] MEDS ORDERED: GUAIFENESIN 200MG/10ML SUGAR FREE UDC PO PRN (00:30)
[2022-09-21] MEDS ORDERED: IPRATROPIUM/ALBUTEROL 0.5-3(2.5)MG/3ML NEB HHN PRN (00:30)
[2022-09-21] MEDS ORDERED: ALBUTEROL (0.083%) 2.5MG/3ML NEB HHN PRN (00:45)
[2022-09-21] MEDS ORDERED: IPRATROPIUM BROMIDE (0.02%) 0.5MG/2.5ML NEB HHN PRN (00:45)
[2022-09-21] MEDS ORDERED: POTASSIUM CHLORIDE 20MEQ/PACKET PO NR (01:15)
[2022-09-21] MEDS ORDERED: DEXTROSE 50% WATER 50ML SYRINGE IV PRN (01:45)
[2022-09-21] MEDS ORDERED: VANCOMYCIN 1.25GM PMX (XELLIA) 250 ML IV NR (03:00)
[2022-09-21 03:13] LABS: VITAMIN B12 SERUM 406 pg/mL (211-911)
[2022-09-21 04:00] VITALS: BP 127/70
[2022-09-21] MEDS: SODIUM CHLORIDE 0.45% 1,000 ML IV SCH ×2 (04:09→20:53)
[2022-09-21 04:19] LABS: FERRITIN 216 ng/mL (22-322)
[2022-09-21] MEDS: INSULIN LISPRO 100 UNITS/ML SUBCUT SCH ×3 (07:05→20:54)
[2022-09-21] MEDS: BLOOD SUGAR DIAGNOSTIC STRIP TEST SCH ×3 (07:05→20:54)
[2022-09-21] MEDS ORDERED: PANTOPRAZOLE 40MG DR TABLET PO SCH (07:20)
[2022-09-21 07:28] LABS: PHOSPHORUS 2.4 mg/dL (2.5-4.9)
[2022-09-21 07:29] LABS: *AMPHETAMINES SCREEN URINE NEGATIVE (NEGATIVE); *BARBITURATES SCREEN URINE NEGATIVE (NEGATIVE); *BENZODIAZEPINES SCREEN URINE NEGATIVE (NEGATIVE); *COCAINE SCREEN URINE NEGATIVE (NEGATIVE); CANNABINOID URINE SCREEN NEGATIVE (NEGATIVE); METHADONE URINE SCREEN NEGATIVE (NEGATIVE); OPIATES URINE SCREEN NEGATIVE (NEGATIVE); PHENCYCLIDINE URINE SCREEN NEGATIVE (NEGATIVE)
[2022-09-21 08:20] VITALS: BP 123/79
[2022-09-21 09:23] LABS: CHLORIDE URINE RANDOM 27 mEq/L; SODIUM URINE RANDOM 33 mEq/L
[2022-09-21] MEDS ORDERED: MAGNESIUM 4 G PREMIX 100 ML IV NR (10:00)
[2022-09-21 10:41] LABS: BASOPHILS % 0.2 % (0.0-2.0); EOSINOPHILS % 0.4 % (0.0-5.0); LYMPHOCYTES % 9.2 % (20.0-50.0); MEAN CORPUSCULAR HEMOGLOBIN 29.7 pg (28.0-32.0); MEAN CORPUSCULAR VOLUME 92.5 fL (80.0-94.0); MEAN PLATELET VOLUME 8.2 fl (7.4-10.4); NEUTROPHILS % 83.2 % (40.0-76.0); PLATELET 287 x1000/uL (130-400); RED BLOOD CELL COUNT 1.47 mill/uL (4.7-6.1); RED CELL DISTRIBUTION WIDTH 16.7 % (11.6-14.6)
[2022-09-21] MEDS: FLUCONAZOLE 200 MG/100ML BAG 100 ML IV SCH (10:42)
[2022-09-21 10:45] LABS: HEMATOCRIT. 13.6 % (42.0-52.0); HEMOGLOBIN. 4.4 g/dL (14.0-18.0)
[2022-09-21 12:00] VITALS: BP 142/77
[2022-09-21 13:24] LABS: BASOPHILS % 0.2 % (0.0-2.0); EOSINOPHILS % 0.3 % (0.0-5.0); HEMOGLOBIN. 7.8 g/dL (14.0-18.0); LYMPHOCYTES % 13.1 % (20.0-50.0); MEAN CORPUSCULAR HEMOGLOBIN 27.5 pg (28.0-32.0); NEUTROPHILS % 78.4 % (40.0-76.0); PLATELET 446 x1000/uL (130-400); RED BLOOD CELL COUNT 2.84 mill/uL (4.7-6.1)
[2022-09-21] MEDS ORDERED: POTASSIUM PHOS,M-BASIC-D-BASIC 30 MMOL in DEXT 5% WATER 500 ML IV NR (14:00)
[2022-09-21 16:00] VITALS: BP 135/82
[2022-09-21] MEDS: FERROUS SULFATE 300MG/5ML UDC PO SCH (17:27)
[2022-09-21 20:00] VITALS: BP 130/85
[2022-09-21 20:29] LABS: HEMATOCRIT 24.5 % (42.0-52.0)
[2022-09-21] MEDS: SUCRALFATE 1 G/10 ML UDC PO SCH (20:45)
[2022-09-21] MEDS: ATORVASTATIN CALCIUM 20MG TABLET PO SCH (20:45)
[2022-09-21 20:46] LABS: CREATINE KINASE 66 IU/L (39-308)
[2022-09-21] MEDS: METOPROLOL TARTRATE 100MG TABLET GT SCH (20:46)
[2022-09-21] MEDS: CEFTRIAXONE 1GM PREMIX 50 ML IV SCH (22:37)
[2022-09-21] MEDS: VANCOMYCIN 1G PREMIX 200 ML IV SCH (23:11)
[2022-09-22] VITALS (11 sets, daily range): BP systolic 102–133; BP diastolic 57–94
[2022-09-22 01:44] LABS: HEMATOCRIT 20.7 % (42.0-52.0); HEMOGLOBIN 6.9 g/dL (14.0-18.0)
[2022-09-22] MEDS: BLOOD SUGAR DIAGNOSTIC STRIP TEST SCH ×4 (05:40→21:13)
[2022-09-22 07:14] LABS: BASOPHILS % 0.2 % (0.0-2.0); EOSINOPHILS % 0.7 % (0.0-5.0); HEMATOCRIT. 25.1 % (42.0-52.0); HEMOGLOBIN. 8.1 g/dL (14.0-18.0); LYMPHOCYTES % 13.8 % (20.0-50.0); MEAN CORPUSCULAR HEMOGLOBIN 28.1 pg (28.0-32.0); MEAN CORPUSCULAR VOLUME 86.7 fL (80.0-94.0); MEAN PLATELET VOLUME 7.5 fl (7.4-10.4); MONOCYTES % 6.2 % (2.0-8.0); NEUTROPHILS % 79.1 % (40.0-76.0); PLATELET 485 x1000/uL (130-400); RED CELL DISTRIBUTION WIDTH 16.7 % (11.6-14.6)
[2022-09-22 07:25] LABS: CHLORIDE 101 mEq/L (98-107)
[2022-09-22 07:39] LABS: PHOSPHORUS 4.1 mg/dL (2.5-4.9); T4 FREE 1.45 ng/dL (0.76-1.46)
[2022-09-22] MEDS: ACETAMINOPHEN 325MG TABLET PO PRN ×2 (08:02→14:14)
[2022-09-22] MEDS: FERROUS SULFATE 300MG/5ML UDC PO SCH ×3 (08:03→19:58)
[2022-09-22] MEDS: SUCRALFATE 1 G/10 ML UDC PO SCH ×4 (08:03→23:56)
[2022-09-22] MEDS: FOLIC ACID 1MG TABLET PO SCH (08:10)
[2022-09-22] MEDS: INSULIN LISPRO 100 UNITS/ML SUBCUT SCH ×4 (08:10→21:00)
[2022-09-22] MEDS ORDERED: PANTOPRAZOLE SODIUM 40 MG/VIAL IV SCH (09:00)
[2022-09-22 10:27] LABS: BG BASE EXCESS 5.3 mmol/L (-2.0-2.0); BG CARBOXYHEMOGLOBIN 0.3 % (0.5-1.5); BG DEOXYHEMOGLOBIN 2.4 % (0.0-5.0); BG FRACTION INSPIRED OXYGEN 21; BG HCO3 ACT 27.8 mmol/L (22.0-26.0); BG METHEMOGLOBIN 0.1 % (0.0-1.5); BG OXYGEN SATURATION 97.6 % (92.0-98.5); BG OXYHEMOGLOBIN 97.2 % (94.0-97.0); BG PCO2 32.5 mmHg (35.0-45.0); BG PO2 100.1 mmHg (75.0-100.0); BG SAMPLE SITE LEFT RADIAL; BG TOTAL HEMOGLOBIN 8.8 g/dL (12.0-18.0); BG VENT MODE ROOM AIR
[2022-09-22] MEDS: FLUCONAZOLE 200 MG/100ML BAG 100 ML IV SCH (10:56)
[2022-09-22] MEDS: SODIUM CHLORIDE 0.45% 1,000 ML IV SCH (10:56)
[2022-09-22 13:57] LABS: HEMOGLOBIN 8.1 g/dL (14.0-18.0)
[2022-09-22] MEDS ORDERED: IPRATROPIUM BROMIDE (0.02%) 0.5MG/2.5ML NEB HHN SCH (14:00)
[2022-09-22] MEDS ORDERED: ALBUTEROL (0.083%) 2.5MG/3ML NEB HHN SCH (14:00)
[2022-09-22] MEDS: METOPROLOL TARTRATE 100MG TABLET GT SCH ×2 (14:16→21:12)
[2022-09-22] MEDS ORDERED: HYDROCODONE/ACETAMINOPHEN 5/325MG TABLET PO PRN (15:15)
[2022-09-22] MEDS ORDERED: NALOXONE HCL 0.4MG/ML VIAL IV PRN (15:15)
[2022-09-22] MEDS: CLOTRIMAZOLE 10MG TROCHE MM SCH ×2 (17:00→21:00)
[2022-09-22] MEDS ORDERED: IPRATROPIUM/ALBUTEROL 0.5-3(2.5)MG/3ML NEB HHN PRN (17:45)
[2022-09-22] MEDS: VANCOMYCIN 1G PREMIX 200 ML IV SCH (19:56)
[2022-09-22] MEDS: CEFTRIAXONE 1GM PREMIX 50 ML IV SCH (19:56)
[2022-09-22] MEDS: GUAIFENESIN 200MG/10ML SUGAR FREE UDC PO SCH ×2 (19:56→23:56)
[2022-09-22] MEDS: ATORVASTATIN CALCIUM 20MG TABLET PO SCH (21:12)
[2022-09-22] MEDS: NYSTATIN 100,000 UNITS/ML 5ML UDC SSW SCH (23:56)
[2022-09-23 00:08] VITALS: BP 133/75
[2022-09-23] MEDS: IPRATROPIUM/ALBUTEROL 0.5-3(2.5)MG/3ML NEB HHN SCH ×2 (00:53→15:33)
[2022-09-23 01:06] LABS: HEMATOCRIT 22.3 % (42.0-52.0); HEMOGLOBIN 7.3 g/dL (14.0-18.0)
[2022-09-23 04:00] VITALS: BP 118/62
[2022-09-23] MEDS: NYSTATIN 100,000 UNITS/ML 5ML UDC SSW SCH ×4 (05:24→23:58)
[2022-09-23] MEDS: GUAIFENESIN 200MG/10ML SUGAR FREE UDC PO SCH ×5 (05:24→23:58)
[2022-09-23 06:12] LABS: HEMATOCRIT 23.4 % (42.0-52.0); HEMOGLOBIN 7.8 g/dL (14.0-18.0)
[2022-09-23] MEDS: BLOOD SUGAR DIAGNOSTIC STRIP TEST SCH ×3 (06:26→21:19)
[2022-09-23] MEDS: INSULIN LISPRO 100 UNITS/ML SUBCUT SCH ×3 (06:26→21:00)
[2022-09-23 06:51] LABS: CHLORIDE 101 mEq/L (98-107)
[2022-09-23 08:05] VITALS: BP 130/78
[2022-09-23] MEDS: CLOTRIMAZOLE 10MG TROCHE MM SCH ×4 (09:00→21:00)
[2022-09-23] MEDS: SUCRALFATE 1 G/10 ML UDC PO SCH ×4 (12:40→21:00)
[2022-09-23] MEDS ORDERED: IOHEXOL-350 100 ML BOTTLE ONE (12:44)
[2022-09-23] MEDS: FERROUS SULFATE 300MG/5ML UDC PO SCH ×3 (13:10→18:50)
[2022-09-23 16:00] VITALS: BP 152/84
[2022-09-23] MEDS: METOPROLOL TARTRATE 100MG TABLET GT SCH ×2 (16:35→21:00)
[2022-09-23] MEDS: FOLIC ACID 1MG TABLET PO SCH (16:36)
[2022-09-23] MEDS: ACETAMINOPHEN 325MG TABLET PO PRN (16:36)
[2022-09-23] MEDS: PANTOPRAZOLE SODIUM 40 MG/VIAL IV SCH ×2 (16:37→16:54)
[2022-09-23] MEDS: FLUCONAZOLE 200 MG/100ML BAG 100 ML IV SCH (16:39)
[2022-09-23] MEDS: VANCOMYCIN 1G PREMIX 200 ML IV SCH (16:39)
[2022-09-23] MEDS: CEFTRIAXONE 1GM PREMIX 50 ML IV SCH (16:40)
[2022-09-23] MEDS: DEXT 5%/0.45% NACL 1000ML 1,000 ML IV SCH (16:52)
[2022-09-23 18:12] LABS: HEMATOCRIT 24.7 % (42.0-52.0); HEMOGLOBIN 8.2 g/dL (14.0-18.0)
[2022-09-23 18:32] LABS: CREATINE KINASE 28 IU/L (39-308)
[2022-09-23 20:00] VITALS: BP 124/82
[2022-09-23] MEDS: ATORVASTATIN CALCIUM 20MG TABLET PO SCH (21:00)
[2022-09-24] VITALS: BP 148/85
[2022-09-24] MEDS: IPRATROPIUM/ALBUTEROL 0.5-3(2.5)MG/3ML NEB HHN SCH ×3 (00:48→16:28)
[2022-09-24 04:00] VITALS: BP 137/87
[2022-09-24] MEDS: VANCOMYCIN 1G PREMIX 200 ML IV SCH (05:16)
[2022-09-24] MEDS: NYSTATIN 100,000 UNITS/ML 5ML UDC SSW SCH ×3 (05:16→18:12)
[2022-09-24] MEDS: GUAIFENESIN 200MG/10ML SUGAR FREE UDC PO SCH ×3 (05:17→16:59)
[2022-09-24 06:18] LABS: BASOPHILS % 0.2 % (0.0-2.0); EOSINOPHILS % 0.4 % (0.0-5.0); HEMATOCRIT. 25.8 % (42.0-52.0); HEMOGLOBIN. 8.6 g/dL (14.0-18.0); LYMPHOCYTES % 11.5 % (20.0-50.0); MEAN CORPUSCULAR HEMOGLOBIN 27.5 pg (28.0-32.0); MEAN CORPUSCULAR VOLUME 82.3 fL (80.0-94.0); MEAN PLATELET VOLUME 7.4 fl (7.4-10.4); MONOCYTES % 7.4 % (2.0-8.0); NEUTROPHILS % 80.5 % (40.0-76.0); PLATELET 468 x1000/uL (130-400); RED BLOOD CELL COUNT 3.13 mill/uL (4.7-6.1)
[2022-09-24 06:30] LABS: INR 1.1; PROTHROMBIN TIME 11.9 sec (9.6-11.0)
[2022-09-24 07:36] LABS: CHLORIDE 101 mEq/L (98-107)
[2022-09-24] MEDS: SUCRALFATE 1 G/10 ML UDC PO SCH ×4 (07:40→21:11)
[2022-09-24] MEDS: BLOOD SUGAR DIAGNOSTIC STRIP TEST SCH ×4 (08:03→21:00)
[2022-09-24] MEDS: INSULIN LISPRO 100 UNITS/ML SUBCUT SCH ×4 (08:05→21:00)
[2022-09-24] MEDS: FERROUS SULFATE 300MG/5ML UDC PO SCH ×3 (08:10→17:06)
[2022-09-24 08:29] VITALS: BP 125/81
[2022-09-24] MEDS: FOLIC ACID 1MG TABLET PO SCH (09:00)
[2022-09-24] MEDS: METOPROLOL TARTRATE 100MG TABLET GT SCH ×2 (09:00→21:12)
[2022-09-24] MEDS: CLOTRIMAZOLE 10MG TROCHE MM SCH ×4 (09:00→21:11)
[2022-09-24] MEDS: DEXT 5%/0.45% NACL 1000ML 1,000 ML IV SCH ×3 (09:55→22:12)
[2022-09-24] MEDS: PANTOPRAZOLE SODIUM 40 MG/VIAL IV SCH ×2 (09:55→16:52)
[2022-09-24 12:04] VITALS: BP 114/81
[2022-09-24 16:00] VITALS: BP 115/82
[2022-09-24] MEDS: CEFTRIAXONE 1GM PREMIX 50 ML IV SCH (18:06)
[2022-09-24 20:00] VITALS: BP 120/78
[2022-09-24] MEDS: ATORVASTATIN CALCIUM 20MG TABLET PO SCH (21:11)
[2022-09-25] VITALS (7 sets, daily range): BP systolic 107–148; BP diastolic 70–82
[2022-09-25] MEDS: NYSTATIN 100,000 UNITS/ML 5ML UDC SSW SCH ×4 (00:38→17:26)
[2022-09-25] MEDS: GUAIFENESIN 200MG/10ML SUGAR FREE UDC PO SCH ×4 (00:38→17:28)
[2022-09-25] MEDS: VANCOMYCIN 1G PREMIX 200 ML IV SCH ×2 (00:38→17:26)
[2022-09-25] MEDS: IPRATROPIUM/ALBUTEROL 0.5-3(2.5)MG/3ML NEB HHN SCH ×3 (00:50→16:17)
[2022-09-25 05:59] LABS: BASOPHILS % 0.4 % (0.0-2.0); EOSINOPHILS % 1.1 % (0.0-5.0); HEMATOCRIT. 27.1 % (42.0-52.0); LYMPHOCYTES % 16.1 % (20.0-50.0); MEAN CORPUSCULAR HEMOGLOBIN 27.7 pg (28.0-32.0); MEAN CORPUSCULAR VOLUME 83.3 fL (80.0-94.0); MEAN PLATELET VOLUME 7.2 fl (7.4-10.4); MONOCYTES % 9.1 % (2.0-8.0); NEUTROPHILS % 73.3 % (40.0-76.0); PLATELET 480 x1000/uL (130-400); RED BLOOD CELL COUNT 3.25 mill/uL (4.7-6.1); RED CELL DISTRIBUTION WIDTH 16.1 % (11.6-14.6)
[2022-09-25 06:10] LABS: INR 1.1; PROTHROMBIN TIME 12.2 sec (9.6-11.0)
[2022-09-25] MEDS: INSULIN LISPRO 100 UNITS/ML SUBCUT SCH ×4 (08:09→21:00)
[2022-09-25] MEDS: BLOOD SUGAR DIAGNOSTIC STRIP TEST SCH ×4 (08:09→21:00)
[2022-09-25 08:41] LABS: CHLORIDE 101 mEq/L (98-107)
[2022-09-25] MEDS: FERROUS SULFATE 300MG/5ML UDC PO SCH ×3 (08:42→17:28)
[2022-09-25] MEDS: SUCRALFATE 1 G/10 ML UDC PO SCH ×4 (08:42→22:15)
[2022-09-25] MEDS: FOLIC ACID 1MG TABLET PO SCH (08:45)
[2022-09-25] MEDS: PANTOPRAZOLE SODIUM 40 MG/VIAL IV SCH ×2 (08:45→15:23)
[2022-09-25] MEDS: METOPROLOL TARTRATE 100MG TABLET GT SCH ×2 (08:45→22:16)
[2022-09-25] MEDS: CLOTRIMAZOLE 10MG TROCHE MM SCH ×4 (08:45→22:16)
[2022-09-25 08:52] LABS: CREATINE KINASE 24 IU/L (39-308)
[2022-09-25] MEDS ORDERED: ENOXAPARIN 60MG/0.6ML SYR SUBCUT SCH (12:00)
[2022-09-25] MEDS ORDERED: NA PHOS,M-B/NA PHOS,DI-BA ENEMA 118ML PR PRN (13:15)
[2022-09-25] MEDS: DEXT 5%/0.45% NACL 1000ML 1,000 ML IV SCH (13:55)
[2022-09-25] MEDS ORDERED: METOCLOPRAMIDE 10MG/10 ML UDC PO SCH (15:00)
[2022-09-25] MEDS: DOCUSATE SODIUM 100MG CAPSULE PO SCH ×2 (15:23→17:25)
[2022-09-25] MEDS ORDERED: BISACODYL 10MG SUPP PR NR (16:00)
[2022-09-25] MEDS ORDERED: CEFTRIAXONE 1,000 MG in DEXTROSE 5% WATER 50 ML IV SCH (18:00)
[2022-09-25] MEDS: ATORVASTATIN CALCIUM 20MG TABLET PO SCH (22:15)
[2022-09-26] VITALS: BP 138/78
== END 2022-09-26 01:07 | DRG 871 ==
LOC: ER 13:47 → 6EST 18:37 → EDBEDREQ 18:39 → EDBEDREQTM 18:39 → ENRESERV 20:46 → 7WST 09-21 13:30
PROVIDERS: ADMIT Internal Medicine; ATTEND Internal Medicine
PROC: 05H533Z Insertion of Infusion Device into Right Subclavian Vein, Percutaneous Approach (ICD-10-PCS; principal; 2022-09-22)
PROC: B546ZZA Ultrasonography of Right Subclavian Vein, Guidance (ICD-10-PCS; 2022-09-22)
PROC: 30233N1 Transfusion of Nonautologous Red Blood Cells into Peripheral Vein, Percutaneous Approach (ICD-10-PCS; 2022-09-22)
DX: A41.1 Sepsis due to other specified staphylococcus (principal); E43 Unspecified severe protein-calorie malnutrition; J96.00 Acute respiratory failure, unspecified whether with hypoxia or hypercapnia; I26.99 Other pulmonary embolism without acute cor pulmonale; E87.4 Mixed disorder of acid-base balance; G45.9 Transient cerebral ischemic attack, unspecified; G93.40 Encephalopathy, unspecified; J98.11 Atelectasis; N17.9 Acute kidney failure, unspecified; N39.0 Urinary tract infection, site not specified; K92.2 Gastrointestinal hemorrhage, unspecified; D63.8 Anemia in other chronic diseases classified elsewhere; D64.89 Other specified anemias; D75.839 Thrombocytosis, unspecified; E11.9 Type 2 diabetes mellitus without complications; E78.5 Hyperlipidemia, unspecified; E83.39 Other disorders of phosphorus metabolism; E83.42 Hypomagnesemia; E83.51 Hypocalcemia; E87.6 Hypokalemia; F03.90 Unspecified dementia, unspecified severity, without behavioral disturbance, psychotic disturbance, mood disturbance, and anxiety; H54.8 Legal blindness, as defined in USA; I48.91 Unspecified atrial fibrillation; I11.0 Hypertensive heart disease with heart failure; K44.9 Diaphragmatic hernia without obstruction or gangrene; I50.9 Heart failure, unspecified; D75.838 Other thrombocytosis; K59.00 Constipation, unspecified; R13.10 Dysphagia, unspecified; Z95.828 Presence of other vascular implants and grafts; Z87.891 Personal history of nicotine dependence; Z74.01 Bed confinement status; Z86.73 Personal history of transient ischemic attack (TIA), and cerebral infarction without residual deficits; Z93.1 Gastrostomy status; Z86.718 Personal history of other venous thrombosis and embolism; Z79.4 Long term (current) use of insulin; Z68.21 Body mass index [BMI] 21.0-21.9, adult
CPT/HCPCS: 36415; 36573; 36600; 71045; 71275; 74018; 74177; 78278; 80048; 80053; 80202; 80305; 81003; 82040; 82270; 82375; 82436; 82550; 82607; 82728; 82746; 82805; 82962; 83036; 83540; 83550; 83605; 83735; 83880; 84100; 84134; 84145; 84300; 84439; 84443; 84484; 85014; 85018; 85025; 85044; 85379; 86850; 86900; 86920; 87077; 87106; 87186; 93005; 93970; 94640; 99285; A6261; A9560; C1725; C1893; C9113; J0696; J1450; J1650; J3370; J3475; J3490; J7060; J8597; P9016; Q9967; A4315

== ENCOUNTER 2022-10-04 23:56 | Inpatient (IN) | payer MEDICARE, MEDICAID ==
[~2022-10-04] VITALS: Ht 170.2 cm; Wt 59.9 kg
[2022-10-05] VITALS (9 sets, daily range): BP systolic 92–158; BP diastolic 50–90
[2022-10-05] MEDS ORDERED: SODIUM CHLORIDE 0.9% 1000ML BAG (SEPSIS BOLUS) IV ONE (00:45)
[2022-10-05] MEDS ORDERED: PIPERACILLIN/TAZ 3.375G PREMIX 50 ML IV ONE (00:45)
[2022-10-05] MEDS ORDERED: VANCOMYCIN 1G PREMIX 200 ML IV ONE (00:45)
[2022-10-05 01:01] LABS: BASOPHILS % 0.1 % (0.0-2.0); HEMATOCRIT. 29.2 % (42.0-52.0); HEMOGLOBIN. 9.5 g/dL (14.0-18.0); LYMPHOCYTES % 10.7 % (20.0-50.0); MEAN CORPUSCULAR HEMOGLOBIN 26.3 pg (28.0-32.0); MEAN CORPUSCULAR VOLUME 80.8 fL (80.0-94.0); MEAN PLATELET VOLUME 7.4 fl (7.4-10.4); MONOCYTES % 6.1 % (2.0-8.0); NEUTROPHILS % 83.1 % (40.0-76.0); PLATELET 474 x1000/uL (130-400); RED BLOOD CELL COUNT 3.62 mill/uL (4.7-6.1); RED CELL DISTRIBUTION WIDTH 17.1 % (11.6-14.6)
[2022-10-05 01:22] LABS: CHLORIDE 102 mEq/L (98-107)
[2022-10-05 02:25] LABS: CLARITY URINE CLOUDY (CLEAR); COLOR URINE DARK YELLOW (YELLOW); KETONES URINE TRACE (NEGATIVE); LEUKOCYTE ESTERASE URINE 1+ (NEGATIVE); NITRITE URINE NEGATIVE (NEGATIVE); OCCULT BLOOD URINE 2+ (NEGATIVE); PROTEIN URINE 2+ (NEGATIVE); SPECIFIC GRAVITY URINE 1.029 (1.005-1.030)
[2022-10-05] MEDS ORDERED: KCL 20MEQ/100ML PREMIX 100 ML IV NR (03:15)
[2022-10-05] MEDS ORDERED: PIPERACILLIN/TAZ 3.375G PREMIX 50 ML IV NR (03:15)
[2022-10-05] MEDS ORDERED: NYSTATIN (07:01)
[2022-10-05] MEDS: DEXT 5%/0.45% NACL 1000ML 1,000 ML IV SCH ×2 (08:00→20:27)
[2022-10-05] MEDS ORDERED: IPRATROPIUM/ALBUTEROL 0.5-3(2.5)MG/3ML NEB HHN PRN (10:15)
[2022-10-05 10:43] LABS: BG BASE EXCESS 6.3 mmol/L (-2.0-2.0); BG CARBOXYHEMOGLOBIN 0.1 % (0.5-1.5); BG DEOXYHEMOGLOBIN 2.8 % (0.0-5.0); BG HCO3 ACT 30.3 mmol/L (22.0-26.0); BG METHEMOGLOBIN 0.3 % (0.0-1.5); BG OXYGEN SATURATION 97.2 % (92.0-98.5); BG OXYHEMOGLOBIN 96.8 % (94.0-97.0); BG PCO2 41.3 mmHg (35.0-45.0); BG PH 7.483 (7.350-7.450); BG PO2 97.6 mmHg (75.0-100.0); BG SAMPLE SITE RIGHT BRACHIAL; BG TOTAL HEMOGLOBIN 8.9 g/dL (12.0-18.0); BG VENT MODE NASAL CANNULA
[2022-10-05] MEDS: KCL 20MEQ/100ML PREMIX 100 ML IV SCH ×2 (12:10→14:08)
[2022-10-05] MEDS: IPRATROPIUM/ALBUTEROL 0.5-3(2.5)MG/3ML NEB HHN SCH ×2 (12:40→21:02)
[2022-10-05] MEDS: PANTOPRAZOLE SODIUM 40 MG/VIAL IV SCH (14:22)
[2022-10-05 14:58] LABS: TOTAL IRON BINDING CAPACITY 133 ug/dL (250-450)
[2022-10-05 15:22] LABS: VITAMIN B12 SERUM 498 pg/mL (211-911)
[2022-10-05] MEDS: PIPERACILLIN/TAZOBACTAM 3.375 G in DEXTROSE 5% WATER 50 ML IV SCH ×2 (16:33→22:28)
[2022-10-05] MEDS: VANCOMYCIN 1G PREMIX 200 ML IV SCH (20:26)
[2022-10-06] VITALS (12 sets, daily range): BP systolic 113–139; BP diastolic 62–106
[2022-10-06] MEDS: IPRATROPIUM/ALBUTEROL 0.5-3(2.5)MG/3ML NEB HHN SCH ×4 (02:07→20:25)
[2022-10-06] MEDS: PIPERACILLIN/TAZOBACTAM 3.375 G in DEXTROSE 5% WATER 50 ML IV SCH ×3 (05:09→21:27)
[2022-10-06 07:06] LABS: HEMOGLOBIN. 7.9 g/dL (14.0-18.0); MEAN CORPUSCULAR HEMOGLOBIN 26.8 pg (28.0-32.0); MEAN PLATELET VOLUME 7.9 fl (7.4-10.4); PLATELET 370 x1000/uL (130-400); RED BLOOD CELL COUNT 2.96 mill/uL (4.7-6.1)
[2022-10-06 07:15] LABS: CHLORIDE 104 mEq/L (98-107)
[2022-10-06 07:30] LABS: T4 FREE 1.36 ng/dL (0.76-1.46)
[2022-10-06] MEDS ORDERED: FLUCONAZOLE 200MG/100ML PREMIX IV ONE (07:45)
[2022-10-06] MEDS: INSULIN LISPRO 100 UNITS/ML SUBCUT SCH ×4 (08:00→20:39)
[2022-10-06] MEDS ORDERED: DEXTROSE 50% WATER 50ML SYRINGE IV PRN (08:00)
[2022-10-06] MEDS ORDERED: POTASSIUM CHLORIDE 20MEQ/PACKET GT NR (08:15)
[2022-10-06] MEDS: KCL 20MEQ/100ML PREMIX 100 ML IV SCH ×2 (08:38→10:17)
[2022-10-06 08:41] LABS: PLATELET ESTIMATE NORMAL
[2022-10-06] MEDS: DEXT 5%/0.45% NACL 1000ML 1,000 ML IV SCH (09:06)
[2022-10-06] MEDS: PANTOPRAZOLE SODIUM 40 MG/VIAL IV SCH (09:06)
[2022-10-06] MEDS ORDERED: FLUCONAZOLE 200 MG/100ML BAG 100 ML IV NR (09:30)
[2022-10-06] MEDS: FERROUS SULFATE 300MG/5ML UDC GT SCH (10:18)
[2022-10-06] MEDS: BLOOD SUGAR DIAGNOSTIC STRIP TEST SCH ×3 (11:45→20:39)
[2022-10-06] MEDS: VANCOMYCIN 1G PREMIX 200 ML IV SCH (13:01)
[2022-10-06 19:19] LABS: HEMATOCRIT 23.7 % (42.0-52.0); HEMOGLOBIN 7.9 g/dL (14.0-18.0)
[2022-10-07] VITALS (12 sets, daily range): BP systolic 113–158; BP diastolic 64–104
[2022-10-07] MEDS: IPRATROPIUM/ALBUTEROL 0.5-3(2.5)MG/3ML NEB HHN SCH ×3 (02:22→20:19)
[2022-10-07] MEDS: PIPERACILLIN/TAZOBACTAM 3.375 G in DEXTROSE 5% WATER 50 ML IV SCH ×3 (05:17→21:54)
[2022-10-07] MEDS: DEXT 5%/0.45% NACL 1000ML 1,000 ML IV SCH ×3 (05:17→19:36)
[2022-10-07 06:31] LABS: CHLORIDE 102 mEq/L (98-107)
[2022-10-07 06:52] LABS: HEMATOCRIT 23.7 % (42.0-52.0); MEAN CORPUSCULAR HEMOGLOBIN 26.9 pg (28.0-32.0); PLATELET 372 x1000/uL (130-400); RED BLOOD CELL COUNT 2.97 mill/uL (4.7-6.1); RED CELL DISTRIBUTION WIDTH 17.2 % (11.6-14.6)
[2022-10-07] MEDS: BLOOD SUGAR DIAGNOSTIC STRIP TEST SCH ×4 (07:30→21:54)
[2022-10-07] MEDS: INSULIN LISPRO 100 UNITS/ML SUBCUT SCH ×4 (08:00→21:00)
[2022-10-07] MEDS: FERROUS SULFATE 300MG/5ML UDC GT SCH (10:09)
[2022-10-07] MEDS: FLUCONAZOLE 100MG TABLET GT SCH (10:10)
[2022-10-07] MEDS: PANTOPRAZOLE SODIUM 40 MG/VIAL IV SCH (10:10)
[2022-10-07] MEDS: VANCOMYCIN 1G PREMIX 200 ML IV SCH (10:10)
[2022-10-07] MEDS ORDERED: MORPHINE SULFATE 2 MG/ML CPJ (NOT FOR IM USE) IV PRN (10:15)
[2022-10-07] MEDS ORDERED: RACEPINEPHRINE 2.25% 0.5ML NEB VIAL HHN PRN (11:45)
[2022-10-07] MEDS: ACETAMINOPHEN 650MG/20.3ML UDC GT PRN (15:54)
[2022-10-07] MEDS: ONDANSETRON HCL 4MG/2ML INJ IV PRN (15:58)
[2022-10-08] VITALS (16 sets, daily range): BP systolic 117–151; BP diastolic 65–107
[2022-10-08] MEDS: IPRATROPIUM/ALBUTEROL 0.5-3(2.5)MG/3ML NEB HHN SCH ×6 (01:26→20:11)
[2022-10-08] MEDS: VANCOMYCIN 1G PREMIX 200 ML IV SCH ×2 (03:59→22:03)
[2022-10-08] MEDS: PIPERACILLIN/TAZOBACTAM 3.375 G in DEXTROSE 5% WATER 50 ML IV SCH (05:25)
[2022-10-08 06:16] LABS: CHLORIDE 103 mEq/L (98-107)
[2022-10-08 06:25] LABS: BASOPHILS % 0.3 % (0.0-2.0); EOSINOPHILS % 1.2 % (0.0-5.0); HEMATOCRIT. 24.3 % (42.0-52.0); LYMPHOCYTES % 15.2 % (20.0-50.0); MEAN CORPUSCULAR HEMOGLOBIN 26.6 pg (28.0-32.0); MEAN CORPUSCULAR VOLUME 80.9 fL (80.0-94.0); MEAN PLATELET VOLUME 7.9 fl (7.4-10.4); MONOCYTES % 8.3 % (2.0-8.0); PLATELET 390 x1000/uL (130-400); RED CELL DISTRIBUTION WIDTH 17.2 % (11.6-14.6)
[2022-10-08] MEDS: BLOOD SUGAR DIAGNOSTIC STRIP TEST SCH ×4 (07:30→21:00)
[2022-10-08] MEDS: INSULIN LISPRO 100 UNITS/ML SUBCUT SCH ×4 (08:00→21:00)
[2022-10-08 08:56] LABS: BG BASE EXCESS 5.6 mmol/L (-2.0-2.0); BG CARBOXYHEMOGLOBIN 0.2 % (0.5-1.5); BG DEOXYHEMOGLOBIN 4.6 % (0.0-5.0); BG FRACTION INSPIRED OXYGEN 21; BG HCO3 ACT 29.6 mmol/L (22.0-26.0); BG METHEMOGLOBIN 0.3 % (0.0-1.5); BG OXYGEN SATURATION 95.4 % (92.0-98.5); BG OXYHEMOGLOBIN 94.9 % (94.0-97.0); BG PCO2 40.6 mmHg (35.0-45.0); BG PO2 74.9 mmHg (75.0-100.0); BG SAMPLE SITE RIGHT RADIAL; BG TOTAL HEMOGLOBIN 7.8 g/dL (12.0-18.0); BG VENT MODE ROOM AIR
[2022-10-08] MEDS: ACETAMINOPHEN 650MG/20.3ML UDC GT PRN (09:50)
[2022-10-08] MEDS: FLUCONAZOLE 100MG TABLET GT SCH (09:50)
[2022-10-08] MEDS: DEXT 5%/0.45% NACL 1000ML 1,000 ML IV SCH (09:50)
[2022-10-08] MEDS: FERROUS SULFATE 300MG/5ML UDC GT SCH (09:51)
[2022-10-08] MEDS: PANTOPRAZOLE SODIUM 40 MG/VIAL IV SCH (09:51)
[2022-10-08] MEDS: ONDANSETRON HCL 4MG/2ML INJ IV PRN (09:51)
[2022-10-08] MEDS: ENOXAPARIN 40MG/0.4ML SYR SUBCUT SCH (10:02)
[2022-10-08] MEDS: SODIUM CHLORIDE 0.9% 1,000 ML IV SCH (13:30)
[2022-10-08] MEDS: METOCLOPRAMIDE HCL 10MG/2ML VIAL IV SCH (17:29)
[2022-10-08] MEDS ORDERED: MORPHINE SULFATE 2 MG/ML CPJ (NOT FOR IM USE) IV PRN (17:30)
[2022-10-08] MEDS ORDERED: ACETAMINOPHEN 650MG SUPP PR PRN (17:30)
[2022-10-08] MEDS ORDERED: NALOXONE HCL 0.4MG/ML VIAL IV PRN (17:45)
[2022-10-08 17:55] LABS: T4 FREE 1.35 ng/dL (0.76-1.46)
[2022-10-09] VITALS (13 sets, daily range): BP systolic 119–157; BP diastolic 71–107
[2022-10-09] MEDS: METOCLOPRAMIDE HCL 10MG/2ML VIAL IV SCH ×5 (01:03→23:43)
[2022-10-09] MEDS: PANTOPRAZOLE SODIUM 40 MG/VIAL IV SCH ×2 (02:14→13:23)
[2022-10-09] MEDS: SODIUM CHLORIDE 0.9% 1,000 ML IV SCH ×2 (04:30→15:49)
[2022-10-09] MEDS: INSULIN LISPRO 100 UNITS/ML SUBCUT SCH ×4 (06:31→20:44)
[2022-10-09] MEDS: BLOOD SUGAR DIAGNOSTIC STRIP TEST SCH ×4 (06:31→20:44)
[2022-10-09 07:01] LABS: BASOPHILS % 0.4 % (0.0-2.0); HEMATOCRIT. 23.6 % (42.0-52.0); HEMOGLOBIN. 7.9 g/dL (14.0-18.0); LYMPHOCYTES % 20.8 % (20.0-50.0); MEAN CORPUSCULAR HEMOGLOBIN 26.7 pg (28.0-32.0); MEAN CORPUSCULAR VOLUME 80.2 fL (80.0-94.0); MEAN PLATELET VOLUME 7.7 fl (7.4-10.4); MONOCYTES % 8.2 % (2.0-8.0); NEUTROPHILS % 69.6 % (40.0-76.0); PLATELET 430 x1000/uL (130-400); RED BLOOD CELL COUNT 2.95 mill/uL (4.7-6.1); RED CELL DISTRIBUTION WIDTH 17.3 % (11.6-14.6)
[2022-10-09 07:14] LABS: CHLORIDE 105 mEq/L (98-107)
[2022-10-09] MEDS: IPRATROPIUM/ALBUTEROL 0.5-3(2.5)MG/3ML NEB HHN SCH (08:00)
[2022-10-09] MEDS: ENOXAPARIN 40MG/0.4ML SYR SUBCUT SCH (08:22)
[2022-10-09] MEDS: FLUCONAZOLE 100MG TABLET GT SCH (08:22)
[2022-10-09] MEDS ORDERED: POTASSIUM CHLORIDE INJ 40 MEQ in DEXT 5% WATER 250 ML IV ONE (13:15)
[2022-10-09] MEDS: KCL 20MEQ/100ML X 2 FOR TOTAL KCL 40MEQ/200ML IV SCH ×2 (14:24→16:40)
[2022-10-09] MEDS: IPRATROPIUM BROMIDE (0.02%) 0.5MG/2.5ML NEB HHN SCH ×2 (14:25→20:38)
[2022-10-09] MEDS: VANCOMYCIN 1G PREMIX 200 ML IV SCH (15:47)
[2022-10-09] MEDS: CARVEDILOL 3.125 MG TABLET PO SCH (20:29)
[2022-10-10] VITALS (11 sets, daily range): BP systolic 105–150; BP diastolic 65–99
[2022-10-10] MEDS: PANTOPRAZOLE SODIUM 40 MG/VIAL IV SCH ×2 (01:21→13:36)
[2022-10-10] MEDS: IPRATROPIUM BROMIDE (0.02%) 0.5MG/2.5ML NEB HHN SCH ×4 (02:14→19:49)
[2022-10-10] MEDS: METOCLOPRAMIDE HCL 10MG/2ML VIAL IV SCH ×3 (04:18→17:00)
[2022-10-10] MEDS: SODIUM CHLORIDE 0.9% 1,000 ML IV SCH (04:20)
[2022-10-10] MEDS: DEXT 5%/0.45% NACL 1000ML 1,000 ML IV SCH ×2 (06:06→18:20)
[2022-10-10 07:49] LABS: BASOPHILS % 0.4 % (0.0-2.0); EOSINOPHILS % 0.8 % (0.0-5.0); HEMATOCRIT. 25.8 % (42.0-52.0); HEMOGLOBIN. 8.7 g/dL (14.0-18.0); LYMPHOCYTES % 21.2 % (20.0-50.0); MEAN CORPUSCULAR HEMOGLOBIN 27.3 pg (28.0-32.0); MEAN CORPUSCULAR VOLUME 81.3 fL (80.0-94.0); MEAN PLATELET VOLUME 7.6 fl (7.4-10.4); MONOCYTES % 7.8 % (2.0-8.0); NEUTROPHILS % 69.8 % (40.0-76.0); PLATELET 463 x1000/uL (130-400); RED BLOOD CELL COUNT 3.18 mill/uL (4.7-6.1); RED CELL DISTRIBUTION WIDTH 17.2 % (11.6-14.6)
[2022-10-10] MEDS: BLOOD SUGAR DIAGNOSTIC STRIP TEST SCH ×4 (07:53→21:00)
[2022-10-10] MEDS: INSULIN LISPRO 100 UNITS/ML SUBCUT SCH ×4 (07:53→21:00)
[2022-10-10] MEDS: ENOXAPARIN 40MG/0.4ML SYR SUBCUT SCH (08:16)
[2022-10-10] MEDS: CARVEDILOL 3.125 MG TABLET PO SCH ×2 (08:18→22:13)
[2022-10-10 08:36] LABS: CHLORIDE 107 mEq/L (98-107)
[2022-10-10 08:45] LABS: PHOSPHORUS 2.7 mg/dL (2.5-4.9)
[2022-10-10] MEDS ORDERED: FLUCONAZOLE 200MG/5ML ORAL SYR GT SCH (09:00)
[2022-10-10] MEDS: VANCOMYCIN 1G PREMIX 200 ML IV SCH (09:25)
[2022-10-10] MEDS: KCL 20MEQ/100ML PREMIX 100 ML IV SCH ×2 (10:24→12:24)
[2022-10-11] VITALS (12 sets, daily range): BP systolic 117–150; BP diastolic 59–98
[2022-10-11] MEDS: METOCLOPRAMIDE HCL 10MG/2ML VIAL IV SCH ×4 (00:02→17:45)
[2022-10-11] MEDS: DEXT 5%/0.45% NACL 1000ML 1,000 ML IV SCH ×2 (00:18→22:09)
[2022-10-11] MEDS: IPRATROPIUM BROMIDE (0.02%) 0.5MG/2.5ML NEB HHN SCH ×4 (00:38→20:55)
[2022-10-11] MEDS: PANTOPRAZOLE SODIUM 40 MG/VIAL IV SCH ×2 (04:13→13:16)
[2022-10-11 06:26] LABS: BASOPHILS % 0.4 % (0.0-2.0); EOSINOPHILS % 1.1 % (0.0-5.0); HEMATOCRIT. 26.4 % (42.0-52.0); HEMOGLOBIN. 8.9 g/dL (14.0-18.0); LYMPHOCYTES % 23.9 % (20.0-50.0); MEAN CORPUSCULAR HEMOGLOBIN 27.3 pg (28.0-32.0); MEAN CORPUSCULAR VOLUME 80.5 fL (80.0-94.0); MEAN PLATELET VOLUME 7.4 fl (7.4-10.4); MONOCYTES % 7.3 % (2.0-8.0); NEUTROPHILS % 67.3 % (40.0-76.0); PLATELET 447 x1000/uL (130-400); RED BLOOD CELL COUNT 3.27 mill/uL (4.7-6.1); RED CELL DISTRIBUTION WIDTH 17.5 % (11.6-14.6)
[2022-10-11 06:40] LABS: INR 1.1; PROTHROMBIN TIME 11.9 sec (9.6-11.0)
[2022-10-11 06:52] LABS: CHLORIDE 104 mEq/L (98-107)
[2022-10-11 07:01] LABS: PHOSPHORUS 2.3 mg/dL (2.5-4.9)
[2022-10-11] MEDS: BLOOD SUGAR DIAGNOSTIC STRIP TEST SCH ×3 (07:36→17:45)
[2022-10-11] MEDS: INSULIN LISPRO 100 UNITS/ML SUBCUT SCH ×3 (07:36→17:45)
[2022-10-11] MEDS: ENOXAPARIN 40MG/0.4ML SYR SUBCUT SCH (08:16)
[2022-10-11] MEDS: CARVEDILOL 3.125 MG TABLET PO SCH ×2 (08:16→22:09)
[2022-10-11] MEDS: KCL 20MEQ/100ML PREMIX 100 ML IV SCH ×2 (08:40→10:52)
[2022-10-11] MEDS ORDERED: CEFAZOLIN 1000MG PREMIX 50 ML IV NR (10:00)
[2022-10-11] MEDS ORDERED: METOPROLOL TARTRATE 5MG/5ML VIAL IV NR (15:45)
[2022-10-12] VITALS (12 sets, daily range): BP systolic 108–147; BP diastolic 62–91
[2022-10-12] MEDS: BLOOD SUGAR DIAGNOSTIC STRIP TEST SCH ×4 (00:07→17:26)
[2022-10-12] MEDS: METOCLOPRAMIDE HCL 10MG/2ML VIAL IV SCH ×4 (00:19→17:47)
[2022-10-12] MEDS: IPRATROPIUM BROMIDE (0.02%) 0.5MG/2.5ML NEB HHN SCH ×4 (01:31→21:10)
[2022-10-12] MEDS: PANTOPRAZOLE SODIUM 40 MG/VIAL IV SCH ×2 (02:55→14:31)
[2022-10-12] MEDS: INSULIN LISPRO 100 UNITS/ML SUBCUT SCH ×4 (05:35→17:26)
[2022-10-12 08:44] LABS: HEMATOCRIT 26.4 % (42.0-52.0); HEMOGLOBIN 8.7 g/dL (14.0-18.0); MEAN CORPUSCULAR HEMOGLOBIN 26.5 pg (28.0-32.0); MEAN CORPUSCULAR VOLUME 80.2 fL (80.0-94.0); PLATELET 444 x1000/uL (130-400); RED BLOOD CELL COUNT 3.29 mill/uL (4.7-6.1); RED CELL DISTRIBUTION WIDTH 17.6 % (11.6-14.6)
[2022-10-12 09:13] LABS: CHLORIDE 103 mEq/L (98-107)
[2022-10-12] MEDS: CARVEDILOL 3.125 MG TABLET PO SCH ×2 (09:28→21:53)
[2022-10-12] MEDS: ENOXAPARIN 40MG/0.4ML SYR SUBCUT SCH (09:28)
[2022-10-12] MEDS: DEXT 5%/0.45% NACL 1000ML 1,000 ML IV SCH (12:20)
[2022-10-13] VITALS (12 sets, daily range): BP systolic 107–136; BP diastolic 58–82
[2022-10-13] MEDS: DEXT 5%/0.45% NACL 1000ML 1,000 ML IV SCH ×2 (01:42→13:09)
[2022-10-13] MEDS: METOCLOPRAMIDE HCL 10MG/2ML VIAL IV SCH ×4 (01:42→17:32)
[2022-10-13] MEDS: PANTOPRAZOLE SODIUM 40 MG/VIAL IV SCH ×2 (01:43→13:34)
[2022-10-13] MEDS: IPRATROPIUM BROMIDE (0.02%) 0.5MG/2.5ML NEB HHN SCH ×4 (01:43→21:03)
[2022-10-13] MEDS: INSULIN LISPRO 100 UNITS/ML SUBCUT SCH ×4 (05:59→17:32)
[2022-10-13] MEDS: BLOOD SUGAR DIAGNOSTIC STRIP TEST SCH ×4 (05:59→17:32)
[2022-10-13 07:57] LABS: HEMATOCRIT 25.6 % (42.0-52.0); HEMOGLOBIN 8.3 g/dL (14.0-18.0); MEAN CORPUSCULAR HEMOGLOBIN 26.2 pg (28.0-32.0); MEAN CORPUSCULAR VOLUME 80.5 fL (80.0-94.0); PLATELET 438 x1000/uL (130-400); RED BLOOD CELL COUNT 3.18 mill/uL (4.7-6.1); RED CELL DISTRIBUTION WIDTH 17.8 % (11.6-14.6)
[2022-10-13 08:28] LABS: CHLORIDE 101 mEq/L (98-107)
[2022-10-13] MEDS: ENOXAPARIN 40MG/0.4ML SYR SUBCUT SCH (08:48)
[2022-10-13] MEDS ORDERED: CARVEDILOL 3.125 MG TABLET PO SCH (09:00)
[2022-10-13] MEDS: CARVEDILOL 6.25 MG TABLET PO SCH (21:54)
[2022-10-14] VITALS (12 sets, daily range): BP systolic 116–161; BP diastolic 61–96
[2022-10-14] MEDS: BLOOD SUGAR DIAGNOSTIC STRIP TEST SCH ×5 (00:26→23:17)
[2022-10-14] MEDS: METOCLOPRAMIDE HCL 10MG/2ML VIAL IV SCH ×5 (00:34→23:22)
[2022-10-14] MEDS: IPRATROPIUM BROMIDE (0.02%) 0.5MG/2.5ML NEB HHN SCH ×3 (01:20→15:10)
[2022-10-14] MEDS: PANTOPRAZOLE SODIUM 40 MG/VIAL IV SCH ×2 (02:53→15:21)
[2022-10-14] MEDS: DEXT 5%/0.45% NACL 1000ML 1,000 ML IV SCH ×2 (02:54→17:48)
[2022-10-14] MEDS: INSULIN LISPRO 100 UNITS/ML SUBCUT SCH ×5 (05:18→23:18)
[2022-10-14 07:28] LABS: BASOPHILS % 0.2 % (0.0-2.0); EOSINOPHILS % 1.4 % (0.0-5.0); HEMATOCRIT. 26.2 % (42.0-52.0); HEMOGLOBIN. 8.7 g/dL (14.0-18.0); LYMPHOCYTES % 32.3 % (20.0-50.0); MEAN CORPUSCULAR HEMOGLOBIN 26.5 pg (28.0-32.0); MEAN CORPUSCULAR VOLUME 80.2 fL (80.0-94.0); MEAN PLATELET VOLUME 7.3 fl (7.4-10.4); MONOCYTES % 5.5 % (2.0-8.0); NEUTROPHILS % 60.6 % (40.0-76.0); PLATELET 477 x1000/uL (130-400); RED BLOOD CELL COUNT 3.27 mill/uL (4.7-6.1); RED CELL DISTRIBUTION WIDTH 17.7 % (11.6-14.6)
[2022-10-14 07:29] LABS: INR 1.1; PROTHROMBIN TIME 11.3 sec (9.6-11.0)
[2022-10-14 08:06] LABS: CHLORIDE 101 mEq/L (98-107)
[2022-10-14] MEDS: CARVEDILOL 6.25 MG TABLET PO SCH ×2 (08:41→20:31)
[2022-10-14] MEDS ORDERED: CEFAZOLIN 1000MG PREMIX 50 ML IV NR (12:00)
[2022-10-14] MEDS: ONDANSETRON HCL 4MG/2ML INJ IV PRN (15:28)
[2022-10-15] VITALS (13 sets, daily range): BP systolic 107–156; BP diastolic 56–99
[2022-10-15] MEDS: PANTOPRAZOLE SODIUM 40 MG/VIAL IV SCH ×2 (01:50→17:22)
[2022-10-15] MEDS: BLOOD SUGAR DIAGNOSTIC STRIP TEST SCH ×3 (04:42→17:22)
[2022-10-15] MEDS: INSULIN LISPRO 100 UNITS/ML SUBCUT SCH ×3 (04:42→17:22)
[2022-10-15] MEDS: METOCLOPRAMIDE HCL 10MG/2ML VIAL IV SCH ×3 (04:43→18:56)
[2022-10-15] MEDS: DEXT 5%/0.45% NACL 1000ML 1,000 ML IV SCH ×2 (05:21→20:25)
[2022-10-15] MEDS: CARVEDILOL 6.25 MG TABLET PO SCH ×2 (08:33→20:27)
[2022-10-15] MEDS ORDERED: MAGNESIUM 2 G PREMIX 50 ML IV NR (10:00)
[2022-10-15 11:02] LABS: BASOPHILS % 0.2 % (0.0-2.0); EOSINOPHILS % 2.3 % (0.0-5.0); HEMATOCRIT. 24.2 % (42.0-52.0); HEMOGLOBIN. 8.1 g/dL (14.0-18.0); LYMPHOCYTES % 30.6 % (20.0-50.0); MEAN CORPUSCULAR HEMOGLOBIN 26.8 pg (28.0-32.0); MEAN CORPUSCULAR VOLUME 79.7 fL (80.0-94.0); MEAN PLATELET VOLUME 7.2 fl (7.4-10.4); MONOCYTES % 6.4 % (2.0-8.0); NEUTROPHILS % 60.5 % (40.0-76.0); PLATELET 448 x1000/uL (130-400); RED BLOOD CELL COUNT 3.04 mill/uL (4.7-6.1)
[2022-10-15 11:46] LABS: CHLORIDE 103 mEq/L (98-107)
[2022-10-15 12:00] LABS: PHOSPHORUS 2.7 mg/dL (2.5-4.9)
[2022-10-15] MEDS: IPRATROPIUM BROMIDE (0.02%) 0.5MG/2.5ML NEB HHN SCH ×2 (15:14→20:42)
[2022-10-15 16:28] LABS: INR 1.1; PROTHROMBIN TIME 11.4 sec (9.6-11.0)
[2022-10-16] VITALS: BP 134/91
[2022-10-16] MEDS: BLOOD SUGAR DIAGNOSTIC STRIP TEST SCH ×5 (00:03→23:37)
[2022-10-16] MEDS: METOCLOPRAMIDE HCL 10MG/2ML VIAL IV SCH ×5 (00:11→23:37)
[2022-10-16] MEDS: IPRATROPIUM BROMIDE (0.02%) 0.5MG/2.5ML NEB HHN SCH ×3 (02:16→22:18)
[2022-10-16 04:00] VITALS: BP 138/93
[2022-10-16] MEDS: PANTOPRAZOLE SODIUM 40 MG/VIAL IV SCH ×2 (04:07→14:00)
[2022-10-16 05:54] LABS: HEMOGLOBIN 8.2 g/dL (14.0-18.0); MEAN CORPUSCULAR HEMOGLOBIN 27.2 pg (28.0-32.0); MEAN CORPUSCULAR VOLUME 79.5 fL (80.0-94.0); PLATELET 452 x1000/uL (130-400); RED BLOOD CELL COUNT 3.02 mill/uL (4.7-6.1); RED CELL DISTRIBUTION WIDTH 17.8 % (11.6-14.6)
[2022-10-16] MEDS: INSULIN LISPRO 100 UNITS/ML SUBCUT SCH ×5 (06:00→23:37)
[2022-10-16 06:44] LABS: CHLORIDE 103 mEq/L (98-107)
[2022-10-16 08:00] VITALS: BP 140/90
[2022-10-16] MEDS: DEXT 5%/0.45% NACL 1000ML 1,000 ML IV SCH ×2 (08:48→21:05)
[2022-10-16] MEDS: CARVEDILOL 6.25 MG TABLET PO SCH ×2 (08:55→21:04)
[2022-10-16] MEDS ORDERED: CEFAZOLIN 1000MG PREMIX 50 ML IV NR (11:00)
[2022-10-16] MEDS ORDERED: PROPOFOL 200MG/20ML VIAL IV ONE (12:04)
[2022-10-16] MEDS ORDERED: DEXAMETHASONE 4MG/ML 1ML VIAL ONE (12:32)
[2022-10-16] MEDS ORDERED: ONDANSETRON HCL 4MG/2ML INJ ONE (12:32)
[2022-10-16] MEDS ORDERED: LABETALOL 5MG/ML SYR 20 MG/4 ML SYRINGE IV PRN (13:15)
[2022-10-16 14:00] VITALS: BP 144/95
[2022-10-16 16:00] VITALS: BP 147/99
[2022-10-16 20:00] VITALS: BP 141/89
[2022-10-17] VITALS: BP 125/85
[2022-10-17] MEDS: IPRATROPIUM BROMIDE (0.02%) 0.5MG/2.5ML NEB HHN SCH ×2 (02:56→08:59)
[2022-10-17] MEDS: PANTOPRAZOLE SODIUM 40 MG/VIAL IV SCH ×2 (03:07→14:04)
[2022-10-17 04:00] VITALS: BP 121/89
[2022-10-17] MEDS: INSULIN LISPRO 100 UNITS/ML SUBCUT SCH ×2 (06:00→12:00)
[2022-10-17] MEDS: BLOOD SUGAR DIAGNOSTIC STRIP TEST SCH ×2 (06:19→12:31)
[2022-10-17] MEDS: METOCLOPRAMIDE HCL 10MG/2ML VIAL IV SCH ×2 (06:19→12:51)
[2022-10-17 08:00] VITALS: BP 165/97
[2022-10-17] MEDS: CARVEDILOL 6.25 MG TABLET PO SCH (09:04)
[2022-10-17] MEDS: DEXT 5%/0.45% NACL 1000ML 1,000 ML IV SCH (10:36)
[2022-10-17 11:26] VITALS: BP 148/84
[2022-10-17 12:00] VITALS: BP 163/84
[2022-10-17 17:08] LABS: HEMATOCRIT 27.2 % (42.0-52.0); HEMOGLOBIN 9.2 g/dL (14.0-18.0); MEAN CORPUSCULAR HEMOGLOBIN 27.2 pg (28.0-32.0); MEAN CORPUSCULAR VOLUME 80.4 fL (80.0-94.0); PLATELET 472 x1000/uL (130-400); RED BLOOD CELL COUNT 3.38 mill/uL (4.7-6.1); RED CELL DISTRIBUTION WIDTH 18.1 % (11.6-14.6)
[2022-10-17 17:48] LABS: CHLORIDE 102 mEq/L (98-107)
[2022-10-17 17:53] LABS: PHOSPHORUS 2.9 mg/dL (2.5-4.9)
== END 2022-10-17 16:13 | DRG 177 ==
LOC: ER 10-05 00:06 → MICUSO 10-05 03:17 → EDBEDREQ 10-05 03:22 → 5EST 10-05 05:52 → 7WST 10-15 22:50
PROVIDERS: ADMIT Internal Medicine; ATTEND Internal Medicine
PROC: 0DH63UZ Insertion of Feeding Device into Stomach, Percutaneous Approach (ICD-10-PCS; principal; 2022-10-16)
DX: J69.0 Pneumonitis due to inhalation of food and vomit (principal); E43 Unspecified severe protein-calorie malnutrition; G93.41 Metabolic encephalopathy; J96.00 Acute respiratory failure, unspecified whether with hypoxia or hypercapnia; N39.0 Urinary tract infection, site not specified; K94.23 Gastrostomy malfunction; I50.30 Unspecified diastolic (congestive) heart failure; K92.2 Gastrointestinal hemorrhage, unspecified; I11.0 Hypertensive heart disease with heart failure; Z20.822 Contact with and (suspected) exposure to COVID-19; E11.9 Type 2 diabetes mellitus without complications; D63.8 Anemia in other chronic diseases classified elsewhere; Z95.828 Presence of other vascular implants and grafts; E87.6 Hypokalemia; D75.838 Other thrombocytosis; E78.5 Hyperlipidemia, unspecified; R13.10 Dysphagia, unspecified; I49.3 Ventricular premature depolarization; K44.9 Diaphragmatic hernia without obstruction or gangrene; H54.8 Legal blindness, as defined in USA; E88.09 Other disorders of plasma-protein metabolism, not elsewhere classified; Z68.20 Body mass index [BMI] 20.0-20.9, adult; Z86.73 Personal history of transient ischemic attack (TIA), and cerebral infarction without residual deficits; Z86.718 Personal history of other venous thrombosis and embolism; Z86.711 Personal history of pulmonary embolism; Z74.01 Bed confinement status; Y83.9 Surgical procedure, unspecified as the cause of abnormal reaction of the patient, or of later complication, without mention of misadventure at the time of the procedure
CPT/HCPCS: 36415; 36600; 71045; 74018; 78580; 80048; 80053; 80061; 80202; 81003; 82040; 82270; 82375; 82607; 82728; 82746; 82805; 82962; 83036; 83540; 83550; 83605; 83735; 84100; 84132; 84134; 84145; 84439; 84443; 84484; 85014; 85018; 85025; 85027; 85044; 85379; 87426; 87804; 93005; 93970; 94640; 99285; A6261; C1893; C9113; J0690; J1100; J1450; J1650; J1815; J2270; J2405; J2543; J2704; J2765; J3370; J3475; J3480; J3490; J7030; J7060

== ENCOUNTER 2022-10-24 14:45 | Emergency (ER) | payer MEDICARE, MEDICAID ==
[~2022-10-24] VITALS: Ht 175.3 cm; Wt 66.0 kg
[~2022-10-24 14:45] MED LIST changes: -ASPI-867 PO; -LEVO750T68 GT
[2022-10-24 15:16] VITALS: BP 92/58
[2022-10-24 15:25] LABS: HEMATOCRIT. 26.8 % (42.0-52.0); HEMOGLOBIN. 8.7 g/dL (14.0-18.0); MEAN CORPUSCULAR HEMOGLOBIN 26.6 pg (28.0-32.0); MEAN CORPUSCULAR VOLUME 81.5 fL (80.0-94.0); MEAN PLATELET VOLUME 8.3 fl (7.4-10.4); PLATELET 201 x1000/uL (130-400); RED BLOOD CELL COUNT 3.28 mill/uL (4.7-6.1)
[2022-10-24] MEDS ORDERED: CEFTRIAXONE 1GM PREMIX 50 ML IV NR (15:30)
[2022-10-24] MEDS ORDERED: AZITHROMYCIN 500MG/250ML 250 ML IV SCH (15:30)
[2022-10-24 15:35] LABS: CHLORIDE 99 mEq/L (98-107)
[2022-10-24 15:43] LABS: INR 1.2; PROTHROMBIN TIME 12.9 sec (9.6-11.0)
[2022-10-24 15:46] LABS: CREATINE KINASE 19 IU/L (39-308)
[2022-10-24 16:00] LABS: NUCLEATED RED BLOOD CELLS 2 /100 WBC; PLATELET ESTIMATE NORMAL
== END 2022-10-24 17:04 ==
LOC: ER 14:45 → EDBEDREQTM 16:13 → EDBEDREQ 16:13 → ER 17:04 → CANBEDREQ 10-26 22:57
DX: A41.9 Sepsis, unspecified organism (principal); R65.20 Severe sepsis without septic shock; I46.9 Cardiac arrest, cause unspecified; J18.9 Pneumonia, unspecified organism; E11.9 Type 2 diabetes mellitus without complications; I50.9 Heart failure, unspecified
CPT/HCPCS: 31500; 36415; 71045; 80053; 82550; 83605; 83880; 84145; 84484; 85025; 85610; 87040; 87077; 87186; 92950; 93005; 96365; 96367; 99291; J0456; J0696